=== PATIENT | male | born 1965 | race Caucasian/White ===

== ENCOUNTER → 2020-05-03 09:31 | Outpatient (BNVA) | payer BC, SELFPAY | PROVIDERS: Family Provider Family Medicine; PCP Family Medicine; Visit Provider Urology | DX: N40.0 Benign prostatic hyperplasia without lower urinary tract symptoms (principal); N52.1 Erectile dysfunction due to diseases classified elsewhere | CPT/HCPCS: 81001 ==

== ENCOUNTER → 2020-08-23 15:37 | Outpatient (BNVA) | payer BC, SELFPAY | PROVIDERS: Family Provider Family Medicine; PCP Family Medicine; Visit Provider Orthopaedic Surgery | DX: M17.11 Unilateral primary osteoarthritis, right knee (principal); M25.561 Pain in right knee | CPT/HCPCS: 73560; 73565 ==

== ENCOUNTER → 2020-10-04 09:35 | Outpatient (BNVA) | payer SELFPAY | PROVIDERS: Family Provider Family Medicine; PCP Family Medicine; Visit Provider Urology | DX: R79.89 Other specified abnormal findings of blood chemistry (principal); N52.1 Erectile dysfunction due to diseases classified elsewhere | CPT/HCPCS: 81003 ==

== ENCOUNTER → 2020-12-13 09:27 | Outpatient (BNVA) | payer OTHER, SELFPAY | PROVIDERS: Family Provider Family Medicine; PCP Family Medicine; Visit Provider Urology | DX: N52.1 Erectile dysfunction due to diseases classified elsewhere (principal) | CPT/HCPCS: 81003 ==

== ENCOUNTER 2021-08-31 22:19 | Emergency (ER) | payer OTHER, SELFPAY ==
[2021-08-31 22:29] VITALS: BP 164/73; PULSE 119; RESP 96; TEMP 38.6; O2SAT 96; BMI 53.1
--- NOTE | 2021-08-31 22:38 | ECG_ITS ---
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 Measurements Intervals [place] Rate: 110 P: 47 NE: 207 QRS: 34 QRSD: 97 T: 14 QT: 321 QTc: 435 Interpretive Statements SINUS TACHYCARDIA LOW QRS VOLTAGE IN PRECORDIAL LEADS [QRS DEFLECTION < 1.0 mV IN CHEST LEADS] NONSPECIFIC T-WAVE ABNORMALITY No previous ECG available for comparison Electronically Signed On 09-01-2021 10:51:06 BUSINESS QUALITY ASSURANCE ANALYST by Bob Brewster M.D. [id number]
--- NOTE | 2021-08-31 22:38 | XRR_ITS ---
PROCEDURE INFORMATION: Exam: XR Chest Exam date and time: 08/31/2021 10:38 PM Age: 55 years old Clinical indication: Shortness of breath; Additional info: SOB TECHNIQUE: Imaging protocol: XR of the chest. Views: 1 view. COMPARISON: [place] [id number] 03/25/2017 12:02 PM FINDINGS: Lungs: Unremarkable. No consolidation. Pleural spaces: Unremarkable. No pleural effusion. No pneumothorax. Heart/Mediastinum: Unremarkable. No cardiomegaly. Bones/joints: Unremarkable. XR/XR chest 1V portable [id number] IMPRESSION: Unremarkable.
[2021-08-31] MEDS: ibuprofen 800 mg tablet PO (23:26)
[2021-08-31 23:27] LABS: Basophils # 0.1 10^3/uL (0.0-0.1); Basophils % 0.4 %; Hematocrit 45.1 % (42.0-52.0); Hemoglobin 15.5 g/dL (11.7-16.6); Lymphocytes # 0.5 10^3/uL (0.8-4.8); Lymphocytes % 3.1 %; Mean Corpuscular HGB Conc 34.4 g/dL (30.0-36.0); Mean Corpuscular Hemoglobin 30.3 pg (28.0-34.0); Mean Corpuscular Volume 88.3 fl (80-94); Mean Platelet Volume 9.4 fL (7.4-10.4); Monocytes # 1.1 10^3/uL (0.2-0.9); Monocytes % 6.9 %; Neutrophils # 14.16 10^3/uL (1.8-7.7); Neutrophils % 88.7 %; Nucleated Red Blood Cells % 0 %; Platelet Count 270 10^3/cmm (130-400); Red Blood Count 5.11 10^6/uL (4.1-5.3); Red Cell Distribution Width 13.5 % (12.1-15.1)
[2021-08-31 23:38] VITALS: BP 136/92; PULSE 88; RESP 20; O2SAT 96
[2021-08-31 23:43] LABS: ABG PCO2 29.6 mmHg (35-45); ABG PH Result 7.46 (7.35-7.45); Arterial Blood Gas Hematocrit 46.8 % (42-52); Base Excess ABG -1.6 mmol/L (-2.0-2.0); Blood Gas Allen Test Pos; Blood Gas Sample Site Radial, right; Blood Gas Sample Type Arterial; Oxygen Device ROOM AIR
[2021-08-31] MEDS: sodium chloride 0.9% 1,000 ML 999 ML IV (23:45)
[2021-08-31 23:50] LABS: Influenza A by IFA Negative (Negative); Influenza B by IFA Negative (Negative); SARS Covid-2 Antigen Negative (Negative)
[2021-08-31 23:54] LABS: Lactic Sepsis W/Reflex 1.4 mmol/L (0.5-2.2)
--- NOTE | 2021-08-31 23:57 | CTR_ITS ---
PROCEDURE INFORMATION: Exam: CT Abdomen And Pelvis With Contrast Exam date and time: 08/31/2021 11:57 PM Age: 55 years old Clinical indication: Pain; Other: Back; Additional info: Abd pain TECHNIQUE: Imaging protocol: Computed tomography of the abdomen and pelvis with contrast. Radiation optimization: All CT scans at this facility use at least one of these dose optimization techniques: automated exposure control; mA and/or kV adjustment per patient size (includes targeted exams where dose is matched to clinical indication); or iterative reconstruction. Contrast material: OMNI 300; Contrast volume: 95 ml; Contrast route: INTRAVENOUS (IV); COMPARISON: CR (CHEST, ) 08/31/2021 10:46 PM RADIATION DOSE METRICS: Total DLP (mGy-cm): 1965.69 FINDINGS: Liver: Normal. No mass. Gallbladder and bile ducts: Normal. No calcified stones. No ductal dilation. Pancreas: Normal. No ductal dilation. Spleen: Normal. No splenomegaly. Adrenal glands: Normal. No mass. Kidneys and ureters: Rounded exophytic lesion solid in appearance extends posterior from the right kidney posterior upper pole region with dimensions of about 2.8 cm x 2.6 cm on transaxial series 2, image 40. Negative for hydronephrosis. No renal stones. No acute perinephric inflammation. Stomach and bowel: Unremarkable. No obstruction. No mucosal thickening. Appendix: Normal appendix. Intraperitoneal space: Unremarkable. No free air. No significant fluid collection. Vasculature: Unremarkable. No abdominal aortic aneurysm. Lymph nodes: Unremarkable. No enlarged lymph nodes. Urinary bladder: Unremarkable as visualized. Reproductive: Mild severity prostatomegaly. Bones/joints: Unremarkable. No acute fracture. Soft tissues: Unremarkable. CT/CT abdomen pelvis w con* [id number] IMPRESSION: 1. Suspicious solid right renal mass concerning for possible renal cell carcinoma. Further investigation is warranted with multiphasic contrast enhanced renal MRI protocol. Urology consultation is recommended. 2. Negative for acute abdominopelvic abnormality. 3. Negative for abdominopelvic metastatic disease. COMMENTS: Consistent with the [place] [employer]'s Incidental Findings Committee white paper (J Am Selam Radiol 2018): Any incidental renal lesion less than 1 cm or classified as too small to characterize, or any incidental cystic renal lesion characterized as simple-appearing, is likely benign. No follow-up imaging is recommended for these lesions per consensus recommendations based on imaging criteria.
[2021-09-01 00:03] LABS: Alanine Aminotransferase 36 U/L (0-41); Albumin Level 4.5 g/dL (3.5-5.2); Alkaline Phosphatase 101 IU/L (40-130); Anion Gap 18.8 (5-19); Aspartate Amino Transferase 24 U/L (0-40); Blood Urea Nitrogen 19 mg/dL (6-20); C Reactive Protein 42.8 mg/L (0.0-4.9); Calcium 9.3 mg/dL (8.5-10.5); Carbon Dioxide 18 mmol/L (22-29); Chloride 102 mmol/L (98-107); Globulin 2.7 g/dL (1.3-4.6); Glomerular Filtration Rate 99.6 mL/min (90-130); Glucose 141 mg/dL (65-115); NT Pro B Type Natriuretic Pept 70 pg/mL (0-125); Osmolality Calculated 285 mOsm/kg (285-295); Potassium 3.8 mmol/L (3.5-5.1); Sodium 135 mmol/L (136-145); Total Bilirubin 0.7 mg/dL (0.15-1.2); Total Protein 7.2 g/dL (6.6-8.7)
[2021-09-01] MEDS: iohexol 300 mg/mL 100 mL Btl IV (00:09)
--- NOTE | 2021-09-01 01:04 | W.ED.FEVER ---
HPI - Fever General: Chief Complaint: Fever Stated Complaint: FEVER, SOB Time Seen by Provider: 08/31/21 22:36 Source: patient and EMS Mode of arrival: EMS Limitations: no limitations History of Present Illness: HPI Narrative: 55-year-old male states that he has been having fever some flank pain slight cough body aches over the last 2 days states she had a temperature up to 103 tonight took Tylenol before arrival. Denies any headache denies any vomiting or diarrhea denies any weakness. Denies any severe dyspnea he is not hypoxic. Denies any recent illnesses or known sick contacts. He has had no vomiting or diarrhea denies any worsening improving factors. Associated symptoms: Reports abdominal pain, flank pain and chills; Deny chest pain or headache(s) Review of Systems Const: Reports: fever(s), chills and body aches Eyes: Denies: blurry vision or eye discomfort ENMT: Denies: throat pain or dental pain Card: Denies: chest pain Resp: Reports: dyspnea GI: Reports: abdominal pain : Reports: flank pain Musc: Denies: neck pain or back pain Skin/Breast: Denies: rash Neuro: Denies: headache(s) Psych: Denies: depression Afshin/Lymph: Denies: easy bruising All/Imm: Denies: urticaria PFSH ED PFSH: Medical History (Updated 09/01/21 @ 01:24 by Marian Aguilar MD) Erectile dysfunction GERD (gastroesophageal reflux disease) Hypertension Surgical History H/O arthroscopic knee surgery Hx of tonsillectomy Family History Father , AT AGE 84 Hypertension Lung disease Mother Lung disease Social History Smoking and tobacco status: former smoker Alcohol intake: never Adopted: No Caregiver/support person: No Lives independently: Yes Marital status: Current occupational status: employed History of recent travel: No Physical Exam Const: COMMON NORMALS: no acute distress, patient oriented x3 and healthy appearing HENMT: COMMON NORMALS: normocephalic and atraumatic HEAD & SCALP: normocephalic and atraumatic Eye: COMMON NORMALS: Equal, round and reactive pupils present and EOMs intact bilaterally PUPIL: Yes Equal, round and reactive pupils present Neck/C-Spine: COMMON NORMALS: full ROM and supple Chest: COMMONS NORMALS: normal inspection of the chest and normal palpation of entire chest wall Resp: COMMON NORMALS: normal respiratory effort, No retractions, No use of accessory muscles and clear to auscultation bilaterally AUSCULTATION: clear to auscultation bilaterally Cardio: COMMON NORMALS: regular rhythm and No murmurs present (Cardio) RATE: tachycardic RHYTHM: regular rhythm GI: COMMON NORMALS: Normal to inspection, nondistended, normoactive bowel sounds present, Soft to palpation and no masses PALPATION: Yes Soft to palpation and Yes Tenderness to palpation present (GI) Details: RLQ Extremity: COMMON NORMALS: normal to inspection and full ROM Neuro: COMMON NORMALS: patient oriented x3, moves all extremities and no focal motor deficits Psych: COMMON NORMALS: mental status grossly normal, Normal thought process present and cooperative THOUGHT PROCESS: Normal thought process present Skin: COMMON NORMALS: no rashes or lesions noted and no wounds GENERAL SKIN EXAM: no rashes or lesions noted Course Vital Signs: Vital signs: Vital Signs Temperature 97.5 F L 09/01/21 02:16 Pulse Rate 89 09/01/21 02:16 Respiratory Rate 18 09/01/21 02:16 Blood Pressure 116/72 09/01/21 02:16 Pulse Oximetry 97 09/01/21 02:16 MDM - Fever MDM Narrative: Medical decision making narrative: Patient presents here with fever likely viral syndrome patient's has no source of infection does have an elevated white count. I talked him at length and told him that he met sepsis criteria and I recommended admission. He states that he is not in a state hospital at all but he would like to go home he feels much better now that his fevers resolved. I again informed him that feel that he warrants admission with IV antibiotics to follow his blood culture but he refused we will place him on Augmentin he is to follow-up his PCP in 2 to 4 days return if worsening he understands and agrees to plan. Lab Data: Labs: Lab Results 08/31/21 08/31/21 08/31/21 23:10 23:10 23:10 WBC 16.0 10^3/uL H 10 ^3/uL (4.0-10.0) RBC 5.11 10^6/uL 10^6 /uL (4.1-5.3) Hgb 15.5 g/dL g/dL (11.7-16.6) Hct 45.1 % % (42.0-52.0) MCV 88.3 fl fl (80-94) MCH 30.3 pg pg (28.0-34.0) MCHC 34.4 g/dL g/dL (30.0-36.0) RDW 13.5 % % (12.1-15.1) Plt Count 270 10^3/cmm 10^3 /cmm (130-400) MPV 9.4 fL fL (7.4-10.4) Neut % (Auto) 88.7 % % Lymph % (Auto) 3.1 % % Winn % (Auto) 6.9 % % Eos % (Auto) 0.0 % % Baso % (Auto) 0.4 % % Neut # (Auto) 14.16 10^3/uL H 1 0^3/uL (1.8-7.7) Lymph # (Auto) 0.5 10^3/uL L 10^ 3/uL (0.8-4.8) Winn # (Auto) 1.1 10^3/uL H 10^ 3/uL (0.2-0.9) Eos # (Auto) 0.0 10^3/uL 10^3/ uL (0.0-0.8) Baso # (Auto) 0.1 10^3/uL 10^3/ uL (0.0-0.1) Nucleated RBC % (a uto) 0 % % Nucleated RBCs # 0.0 /100WBC /100W BC Specimen Type Sample Site ABG pH ABG pCO2 ABG pO2 ABG HCO3 ABG Base Excess Priyank Test Hematocrit O2 Delivery Device FiO2 Shredding Floor Equipment Operator ID Sodium 135 mmol/L L mmol /L (136-145) Potassium 3.8 mmol/L mmol/L (3.5-5.1) Chloride 102 mmol/L mmol/L (98-107) Carbon Dioxide 18 mmol/L L mmol/ L (22-29) Anion Gap 18.8 (5-19) BUN 19 mg/dL mg/dL (6-20) Creatinine 0.8 mg/dL mg/dL (0.7-1.2) GFR Calculation 99.6 mL/min mL/mi n (90-130) Glucose 141 mg/dL H mg/dL (65-115) Calculated Osmolal ity 285 mOsm/kg mOsm/ kg (285-295) Lactic Acid 1.4 mmol/L mmol/L (0.5-2.2) Calcium 9.3 mg/dL mg/dL (8.5-10.5) Total Bilirubin 0.7 mg/dL mg/dL (0.15-1.2) AST 24 U/L U/L (0-40) ALT 36 U/L U/L (0-41) Alkaline Phosphata se 101 IU/L IU/L (40-130) C-Reactive Protein 42.8 mg/L H mg/L (0.0-4.9) NT-Pro-B Natriuret Pep 70 pg/mL pg/mL (0-125) Total Protein 7.2 g/dL g/dL (6.6-8.7) Albumin 4.5 g/dL g/dL (3.5-5.2) Globulin 2.7 g/dL g/dL (1.3-4.6) Urine Color Urine Appearance Urine pH Ur Specific Gravit y Urine Protein Urine Glucose (UA) Urine Ketones Urine Blood Urine Nitrate Urine Bilirubin Urine Urobilinogen Ur Leukocyte Margie ase Urine RBC Urine WBC Ur Squamous Epith Cells Amorphous Sediment Urine Bacteria Influenza Type A A g Influenza Type B A g SARS-CoV-2 Ag (Rap id) 08/31/21 08/31/21 08/31/21 23:10 23:10 23:32 WBC RBC Hgb Hct MCV MCH MCHC RDW Plt Count MPV Neut % (Auto) Lymph % (Auto) Winn % (Auto) Eos % (Auto) Baso % (Auto) Neut # (Auto) Lymph # (Auto) Winn # (Auto) Eos # (Auto) Baso # (Auto) Nucleated RBC % (a uto) Nucleated RBCs # Specimen Type Arterial Sample Site Radial, right ABG pH 7.46 H (7.35-7.45) ABG pCO2 29.6 mmHg L mmHg (35-45) ABG pO2 72.0 mmHg L mmHg (80.0-100.0) ABG HCO3 21.0 mmol/L L mmo l/L (22-26) ABG Base Excess -1.6 mmol/L mmol/ L (-2.0-2.0) Priyank Test Pos Hematocrit 46.8 % % (42-52) O2 Delivery Device Room air FiO2 21.0 % % Shredding Floor Equipment Operator ID [email or web address] Sodium Potassium Chloride Carbon Dioxide Anion Gap BUN Creatinine GFR Calculation Glucose Calculated Osmolal ity Lactic Acid Calcium Total Bilirubin AST ALT Alkaline Phosphata se C-Reactive Protein NT-Pro-B Natriuret Pep Total Protein Albumin Globulin Urine Color Urine Appearance Urine pH Ur Specific Gravit y Urine Protein Urine Glucose (UA) Urine Ketones Urine Blood Urine Nitrate Urine Bilirubin Urine Urobilinogen Ur Leukocyte Margie ase Urine RBC Urine WBC Ur Squamous Epith Cells Amorphous Sediment Urine Bacteria Influenza Type A A g Negative (Negative) Influenza Type B A g Negative (Negative) SARS-CoV-2 Ag (Rap id) Negative (Negative) 09/01/21 00:59 WBC RBC Hgb Hct MCV MCH MCHC RDW Plt Count MPV Neut % (Auto) Lymph % (Auto) Winn % (Auto) Eos % (Auto) Baso % (Auto) Neut # (Auto) Lymph # (Auto) Winn # (Auto) Eos # (Auto) Baso # (Auto) Nucleated RBC % (a uto) Nucleated RBCs # Specimen Type Sample Site ABG pH ABG pCO2 ABG pO2 ABG HCO3 ABG Base Excess Priyank Test Hematocrit O2 Delivery Device FiO2 Shredding Floor Equipment Operator ID Sodium Potassium Chloride Carbon Dioxide Anion Gap BUN Creatinine GFR Calculation Glucose Calculated Osmolal ity Lactic Acid Calcium Total Bilirubin AST ALT Alkaline Phosphata se C-Reactive Protein NT-Pro-B Natriuret Pep Total Protein Albumin Globulin Urine Color Milly (Yellow) Urine Appearance Clear (CLEAR) Urine pH 5 (5-7) Ur Specific Gravit y 1.005 (1.005-1.030) Urine Protein Trace (Negative) Urine Glucose (UA) Norm (Normal) Urine Ketones Negative (Negative) Urine Blood Neg (Negative) Urine Nitrate Negative (Negative) Urine Bilirubin 1+ H (Negative) Urine Urobilinogen 8 mg/dL H mg/dL (Negative) Ur Leukocyte Margie ase Negative (Negative) Urine RBC Rare /hpf /hpf (0-2) Urine WBC Rare /hpf /hpf (0-5) Ur Squamous Epith Cells 0-4 /hpf H /hpf (0-5) Amorphous Sediment Not Reportable Urine Bacteria None /hpf /hpf (NONE) Influenza Type A A g Influenza Type B A g SARS-CoV-2 Ag (Rap id) Imaging Data^: CXR: Attestation: I personally reviewed and interpreted this imaging study as follows: Radiologist's impression: [address] [place] [address] XRay Report Signed Patient: Bk Almaraz Unit #: [id number] : 1965 Age/Sex: 55 / M ADM Date: 08/31/21 Loc: ER Room/Bed: Attending Dr: Ordering Provider/Ordering MD: Marian Aguilar MD Date of Service: 08/31/21 Procedure(s): XR chest 1V portable [id number] Accession Number(s): [id number] Report Number: [id number] PROCEDURE INFORMATION: Exam: XR Chest Exam date and time: 08/31/2021 10:38 PM Age: 55 years old Clinical indication: Shortness of breath; Additional info: SOB TECHNIQUE: Imaging protocol: XR of the chest. Views: 1 view. COMPARISON: [place] [id number] 03/25/2017 12:02 PM FINDINGS: Lungs: Unremarkable. No consolidation. Pleural spaces: Unremarkable. No pleural effusion. No pneumothorax. Heart/Mediastinum: Unremarkable. No cardiomegaly. Bones/joints: Unremarkable. XR/XR chest 1V portable [id number] IMPRESSION: Unremarkable. Dictated By: Chuck Munroe MD Signed By: Chuck Munroe MD Signed Date/Time: 08/31/212310 DD/ EKG Data^: EKG 1: Attestation: I personally reviewed and interpreted this EKG as follows: EKG interpretation date: 08/31/21 EKG interpretation time: 22:49 Interpretation: sinus tach hr [address] or t wave abnormalities qrs 97 qtc 386 Discharge Plan Discharge Patient Disposition: Home Clinical Impression: Acute viral syndrome, Fever Condition: Stable Prescriptions: New Augmentin 875-125 mg tablet 1 tab PO BID Qty: 14 RF: 0 No Action terazosin 2 mg capsule ? mg PO QDAY RF: 0 montelukast [Singulair] 10 mg tablet 10 mg PO QDAY RF: 0 hydrochlorothiazide 25 mg tablet ? mg PO QAM PRNRF: 0 gabapentin 100 mg tablet 100 mg PO .PRN RF: 0 potassium chloride 20 mEq tablet extended release ? meq PO .PRN RF: 0 albuterol sulfate [ProAir HFA] 90 mcg/actuation HFA aerosol inhaler 2 puff INHALATION Q6H PRNRF: 0 budesonide-formoterol [Symbicort] 160-4.5 mcg/actuation HFA aerosol inhaler 2 puff INHALATION BID RF: 0 lisinopril 10 mg tablet 10 mg PO BID RF: 0 meloxicam 15 mg tablet 15 mg PO DAILY RF: 0 lansoprazole 15 mg capsule,delayed release(DR/EC) 30 mg PO DAILY RF: 0 sildenafil 100 mg tablet 100 mg PO DAILY PRN (Reason: sexual activity) Qty: 20 RF: 12 Discharge Orders: Discharge ED (Routine); Ordered 09/01/21 Ordered By: Marian Aguilar Referrals: Deon Abebe MD [Primary Care Provider] - 1-3 days Discharge Diet: Advance as tolerated Discharge Activity: Resume usual activity Patient Instructions: Fever in Adults (ED) Coding Level of Care Code ED 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
[2021-09-01 01:16] VITALS: TEMP 36.4
[2021-09-01 01:25] LABS: Urine Appearance Clear (CLEAR); Urine Color Amber (Yellow)
[2021-09-01 01:26] LABS: Add Urine Culture? No; Add Urine Microscopic? YES; Bilirubin Urine 1+ (Negative); Blood Urine Neg (Negative); Glucose Urine UA Norm (Normal); Ketones Urine Negative (Negative); Leukocyte Esterase Urine Negative (Negative); Nitrate Urine Negative (Negative); Protein Urine Trace (Negative); RBC Urine RARE /hpf (0-2); Specific Gravity, Urine 1.005 (1.005-1.030); Squamous Epithelial Cell Urine 0-4 /hpf (0-5); Urobilinogen Urine 8 mg/dL (Negative); WBC Urine RARE /hpf (0-5); pH Urine 5 (5-7)
[2021-09-01 02:16] VITALS: BP 116/72; PULSE 89; RESP 18; TEMP 36.4; O2SAT 97
--- NOTE | 2021-09-01 13:30 | PC.NURSE ---
Dr Boykin notified of critical culture result, order received to await final culture results at this time.
== END 2021-09-01 02:18 | disposition home or self-care (01) ==
PROVIDERS: Emergency Provider Emergency Medicine; Family Provider Family Medicine; PCP Family Medicine
DX: B34.9 Viral infection, unspecified (principal); I10 Essential (primary) hypertension; Z87.891 Personal history of nicotine dependence
CPT/HCPCS: 71045; 74177; 80053; 81001; 82803; 83605; 83880; 85025; 86140; 87040; 87077; 87186; 87205; 87426; 87804; 93005; 96360; 99284; J7030; Q9967

== ENCOUNTER 2021-09-02 16:19 | Inpatient (IN) | payer OTHER, SELFPAY ==
[2021-09-02 16:39] VITALS: BP 155/83; PULSE 86; RESP 16; TEMP 37.2; O2SAT 99
--- NOTE | 2021-09-02 16:41 | USR_ITS ---
PROCEDURE INFORMATION: Exam: US Duplex Right Lower Extremity Veins, Limited Exam date and time: 09/02/2021 4:41 PM Age: 55 years old Clinical indication: Pain; Swelling (edema) of limb and other: Redness; Lower extremity, right; Leg, upper and leg, lower; Additional info: Redness/swelling/pain TECHNIQUE: Imaging protocol: Real-time Duplex ultrasound of the Right Lower Extremity with 2-D pinto scale, color Doppler flow and spectral waveform analysis with image documentation. Limited exam was focused on the right lower extremity veins. COMPARISON: CT abdomen pelvis w con* [id number] 09/01/2021 12:08 AM FINDINGS: Right deep veins: Unremarkable. The common femoral, femoral, proximal profunda femoral and popliteal veins are patent without thrombus. Normal Doppler waveforms. Normal compressibility and/or augmentation response. Right superficial veins: Unremarkable. Saphenofemoral junction is patent without thrombus. Soft tissues: There is a large circumscribed debris-filled ovoid hypoechoic fluid collection in the right popliteal fossa which spans 7.7 cm longitudinal by 3.4 cm AP x 4.6 cm transverse with no internal vascularity. Low lying dependently layering echogenic debris throughout the lesion noted. US/[place] [id number] IMPRESSION: 1. Negative for right lower extremity deep venous system thrombosis. 2. Large, debris-filled right popliteal fossa cyst.
[2021-09-02 21:55] LABS: Basophils # 0.1 10^3/uL (0.0-0.1); Basophils % 0.5 %; Eosinophils # 0.1 10^3/uL (0.0-0.8); Eosinophils % 0.5 %; Hematocrit 41.6 % (42.0-52.0); Hemoglobin 14.2 g/dL (11.7-16.6); Lymphocytes # 1.6 10^3/uL (0.8-4.8); Lymphocytes % 12.4 %; Mean Corpuscular HGB Conc 34.1 g/dL (30.0-36.0); Mean Corpuscular Hemoglobin 30.2 pg (28.0-34.0); Mean Corpuscular Volume 88.5 fl (80-94); Mean Platelet Volume 9.7 fL (7.4-10.4); Monocytes # 1.5 10^3/uL (0.2-0.9); Monocytes % 11.5 %; Neutrophils # 9.54 10^3/uL (1.8-7.7); Neutrophils % 74.3 %; Nucleated Red Blood Cells % 0 %; Platelet Count 250 10^3/cmm (130-400); Red Cell Distribution Width 13.9 % (12.1-15.1); White Blood Count 12.8 10^3/uL (4.0-10.0)
--- NOTE | 2021-09-02 22:10 | W.ED.EXTPRO ---
HPI - Extremity Problem General: Chief complaint: Extremity Problem,Nontraumatic Stated complaint: R LEG SWELLING/REDNESS; GROIN PAIN; SENT BY CLINIC Time Seen by Provider: 09/02/21 21:20 Source: patient Mode of arrival: ambulatory Limitations: no limitations History of Present Illness: HPI Narrative: 55-year-old male was actually seen here 3 days ago for fever with no known origin he started on doxycycline he states that today started having redness to his right lower leg going up his calf he states that he is started on Augmentin and they were concerned about a possible DVT so sent him here for an ultrasound he states that his fevers have improved he had no vomiting no diarrhea denies any back pain denies any worsening improving factors. Associated symptoms: Reports fever(s); Deny chest pain Review of Systems Const: Reports: fever(s), chills and body aches Eyes: Denies: blurry vision or eye discomfort ENMT: Denies: throat pain or dental pain Card: Denies: chest pain Resp: Denies: dyspnea GI: Denies: abdominal pain, nausea, vomiting or diarrhea : Denies: dysuria Musc: Denies: neck pain or back pain Skin/Breast: Reports: erythema Neuro: Denies: headache(s) Psych: Denies: depression Afshin/Lymph: Denies: easy bruising All/Imm: Denies: urticaria PFSH ED PFSH: Medical History Erectile dysfunction GERD (gastroesophageal reflux disease) Hypertension Renal mass, right Surgical History H/O arthroscopic knee surgery Hx of tonsillectomy Family History Father , AT AGE 84 Hypertension Lung disease Mother Lung disease Social History Smoking and tobacco status: never smoked Alcohol intake: never Adopted: No Caregiver/support person: No Lives independently: Yes Marital status: Current occupational status: employed History of recent travel: No Physical Exam Const: COMMON NORMALS: no acute distress, patient oriented x3 and healthy appearing HENMT: COMMON NORMALS: normocephalic and atraumatic HEAD & SCALP: normocephalic and atraumatic Eye: COMMON NORMALS: Equal, round and reactive pupils present and EOMs intact bilaterally PUPIL: Yes Equal, round and reactive pupils present Neck/C-Spine: COMMON NORMALS: full ROM and supple Chest: COMMONS NORMALS: normal inspection of the chest and normal palpation of entire chest wall Resp: COMMON NORMALS: normal respiratory effort, No retractions, No use of accessory muscles and clear to auscultation bilaterally AUSCULTATION: clear to auscultation bilaterally Cardio: COMMON NORMALS: regular rate, regular rhythm and No murmurs present (Cardio) RATE: regular rate RHYTHM: regular rhythm GI: COMMON NORMALS: Normal to inspection, nondistended, normoactive bowel sounds present, Soft to palpation, non-tender and no masses PALPATION: Yes Soft to palpation Extremity: COMMON NORMALS: normal to inspection and full ROM NARRATIVE EXTREMITY EXAM: Erythema to right lower leg extending past his knee very warm to touch Neuro: COMMON NORMALS: patient oriented x3, moves all extremities and no focal motor deficits Psych: COMMON NORMALS: mental status grossly normal, Normal thought process present and cooperative THOUGHT PROCESS: Normal thought process present Skin: COMMON NORMALS: no rashes or lesions noted and no wounds GENERAL SKIN EXAM: no rashes or lesions noted Course Vital Signs: Vital signs: Vital Signs Temperature 99.0 F 09/02/21 16:39 Pulse Rate 82 09/02/21 22:45 Respiratory Rate 16 09/02/21 22:45 Blood Pressure 155/83 09/02/21 16:39 Pulse Oximetry 97 09/02/21 22:45 MDM - Extremity (Nontraumatic) MDM Narrative: Medical decision making narrative: Patient presents to here with cellulitis to his right leg he has been on outpatient antibiotics and the cellulitis is worsening so he has failed outpatient biotics. Spoke to the hospitalist will admit at this time for IV antibiotics patient is also not very healthy morbidly obese with multiple comorbidities. Lab Data: Labs: Lab Results 09/02/21 09/02/21 21:50 21:50 WBC 12.8 10^3/uL H 10 ^3/uL (4.0-10.0) RBC 4.70 10^6/uL 10^6 /uL (4.1-5.3) Hgb 14.2 g/dL g/dL (11.7-16.6) Hct 41.6 % L % (42.0-52.0) MCV 88.5 fl fl (80-94) MCH 30.2 pg pg (28.0-34.0) MCHC 34.1 g/dL g/dL (30.0-36.0) RDW 13.9 % % (12.1-15.1) Plt Count 250 10^3/cmm 10^3 /cmm (130-400) MPV 9.7 fL fL (7.4-10.4) Neut % (Auto) 74.3 % % Lymph % (Auto) 12.4 % % [place] % (Auto) 11.5 % % Eos % (Auto) 0.5 % % Baso % (Auto) 0.5 % % Neut # (Auto) 9.54 10^3/uL H 10 ^3/uL (1.8-7.7) Lymph # (Auto) 1.6 10^3/uL 10^3/ uL (0.8-4.8) [place] # (Auto) 1.5 10^3/uL H 10^ 3/uL (0.2-0.9) Eos # (Auto) 0.1 10^3/uL 10^3/ uL (0.0-0.8) Baso # (Auto) 0.1 10^3/uL 10^3/ uL (0.0-0.1) Nucleated RBC % (a uto) 0 % % Nucleated RBCs # 0.0 /100WBC /100W BC Sodium 132 mmol/L L mmol /L (136-145) Potassium 3.9 mmol/L mmol/L (3.5-5.1) Chloride 101 mmol/L mmol/L (98-107) Carbon Dioxide 19 mmol/L L mmol/ L (22-29) Anion Gap 15.9 (5-19) BUN 14 mg/dL mg/dL (6-20) Creatinine 0.8 mg/dL mg/dL (0.7-1.2) GFR Calculation 99.6 mL/min mL/mi n (90-130) Glucose 140 mg/dL H mg/dL (65-115) Calculated Osmolal ity 277 mOsm/kg L mOs m/kg (285-295) Calcium 8.7 mg/dL mg/dL (8.5-10.5) Total Bilirubin 0.6 mg/dL mg/dL (0.15-1.2) AST 17 U/L U/L (0-40) ALT 29 U/L U/L (0-41) Alkaline Phosphata se 86 IU/L IU/L (40-130) Total Protein 6.8 g/dL g/dL (6.6-8.7) Albumin 3.8 g/dL g/dL (3.5-5.2) Globulin 3.0 g/dL g/dL (1.3-4.6) Discharge Plan Discharge Patient Disposition: Admitted As Inpatient Clinical Impression: Cellulitis Qualifiers: Site of cellulitis: extremity Site of cellulitis of extremity: lower extremity Laterality: right Qualified Code(s): L03.115 - Cellulitis of right lower limb Condition: Stable Coding Level of Care Code 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
[2021-09-02 22:12] LABS: Alanine Aminotransferase 29 U/L (0-41); Albumin Level 3.8 g/dL (3.5-5.2); Alkaline Phosphatase 86 IU/L (40-130); Anion Gap 15.9 (5-19); Aspartate Amino Transferase 17 U/L (0-40); Blood Urea Nitrogen 14 mg/dL (6-20); Calcium 8.7 mg/dL (8.5-10.5); Carbon Dioxide 19 mmol/L (22-29); Chloride 101 mmol/L (98-107); Glomerular Filtration Rate 99.6 mL/min (90-130); Glucose 140 mg/dL (65-115); Osmolality Calculated 277 mOsm/kg (285-295); Potassium 3.9 mmol/L (3.5-5.1); Sodium 132 mmol/L (136-145); Total Bilirubin 0.6 mg/dL (0.15-1.2); Total Protein 6.8 g/dL (6.6-8.7)
[2021-09-02] MEDS: vancomycin 1,000 MG in sodium chloride 0.9% 250 ML 250 MG IV (22:44)
[2021-09-02 22:45] VITALS: PULSE 82; RESP 16; O2SAT 97
[2021-09-03] VITALS (10 sets, daily range): BP systolic 117–148; BP diastolic 63–84; PULSE 74–85; RESP 16–26; TEMP 36.4–36.8; O2SAT 94–100
[2021-09-03] MEDS: piperacillin-tazobactam 3.375 GM in sodium chloride 0.9% (plus) 50 ML IV ×3 (00:34→20:52)
--- NOTE | 2021-09-03 02:52 | XRR_ITS ---
PROCEDURE INFORMATION: Exam: XR Chest Exam date and time: 09/03/2021 2:52 AM Age: 55 years old Clinical indication: Fever and shortness of breath; Patient HX: SOB with recent fever. History of copd. TECHNIQUE: Imaging protocol: XR of the chest. Views: 1 view. Total images: 1 COMPARISON: CR (CHEST, ) 08/31/2021 10:46 PM FINDINGS: Lungs: Unremarkable. No consolidation. Pleural spaces: Unremarkable. No pleural effusion. No pneumothorax. Heart/Mediastinum: Unremarkable. No cardiomegaly. Bones/joints: Unremarkable. XR/XR chest 1V portable [id number] IMPRESSION: No acute findings.
--- NOTE | 2021-09-03 02:53 | PM.HP ---
Providers/Chief Complaint Admitting Physician: Cynthia Barboza MD Primary Care Provider: Deon Abebe MD Chief Complaint: R LEG SWELLING/REDNESS; GROIN PAIN; SENT BY CLINIC History of Present Illness Bk Almaraz is a 55 year old male with a past medical history of hypertension, presented to the emergency room initially on August 31, 2021 complaining of right leg pain and fever up to 103 Fahrenheit at home. At the time was recommended admission, however patient declined and returned home. Return today after follow-up with his PCP where he was noted to have increasing right lower extremity swelling and erythema affecting the calf and right groin. Patient denies any past medical history of cellulitis. He has longstanding cartilage issues in his right knee. Denies any recent trauma. No history of joint replacement. No history of diabetes mellitus. He was discharged on 1230 with p.o. doxycycline which did not appear to control his symptoms. Rapid antigen and influenza antigen were negative on 09/01. Labs today notable for leukocytosis. Lower extremity venous Doppler is negative for DVT He is unvaccinated for COVID-19. Review of Systems General: Reports: 10 or more systems reviewed and unremarkable except in HPI and below Const: Denies: fever(s), chills or body aches Eyes: Denies: change in vision, blurry vision or photophobia ENMT: Reports: hoarseness; Denies: throat pain, enlarged tonsils, odynophagia or nasal congestion Card: Denies: chest pain, palpitations, irregular heart rhythm, edema, swelling of feet/ankles, lightheadedness, pre-syncope, dyspnea on exertion or orthopnea Resp: Denies: dyspnea, productive cough, non-productive cough, wheezing, stridor, pain on inspiration, change in phlegm color, hemoptysis or chest congestion GI: Denies: abdominal pain, nausea, vomiting, hematemesis, coffee ground emesis, dysphagia, heartburn, diarrhea, constipation, GI cramping, change in stool character, hematochezia or melena : Denies: flank pain, dysuria, urinary frequency, urinary urgency, urinary hesitancy or hematuria Musc: Denies: neck pain, back pain, extremity pain, joint swelling, joint warmth or deformity Neuro: Denies: headache(s), numbness in extremities, weakness in extremities, sensory changes, difficulty walking, frequent falls, dizziness, vertigo, behavioral changes, Slurred speech present or seizure-like activity Psych: Denies: anxiety, depression, suicidal ideation or homicidal ideation Endo: Denies: polyuria, polydipsia, tired all the time, cold intolerance or hot flashes Afshin/Lymph: Denies: easy bruising or easy bleeding Medications/Allergies Home Medications Medication Instructions Recorded Confirmed Last Taken Type montelukast 10 mg tablet 10 mg PO QDAY 09/27/19 09/02/21 Unknown History terazosin 2 mg capsule ? mg PO QDAY cap 09/27/19 09/02/21 Unknown History albuterol sulfate 90 mcg/actuation 2 puff INHALATION Q6H PRN 05/03/20 09/02/21 Unknown History aerosol inhaler budesonide-formoterol HFA 160 2 puff INHALATION BID 05/03/20 09/02/21 Unknown History mcg-4.5 mcg/actuation aerosol inhaler hydrochlorothiazide 25 mg tablet ? mg PO QAM PRN tab 05/03/20 09/02/21 Unknown History lansoprazole 15 mg capsule,delayed 30 mg PO DAILY cap 05/03/20 09/02/21 Unknown History release lisinopril 10 mg tablet 10 mg PO BID 05/03/20 09/02/21 Unknown History meloxicam 15 mg tablet 15 mg PO DAILY 05/03/20 09/02/21 Unknown History sildenafil 100 mg tablet 100 mg PO DAILY PRN #20 tab 05/04/20 09/02/21 Unknown Rx gabapentin 100 mg tablet 100 mg PO .PRN tab 10/04/20 09/02/21 Unknown History potassium chloride 20 mEq ? meq PO .PRN tab 10/04/20 09/02/21 Unknown History tablet,extended release doxycycline hyclate 100 mg tablet 100 mg PO BID 10 Days #20 tab 09/02/21 09/02/21 Unknown Rx Allergies Allergy/AdvReac Type Severity Reaction Status Date / Time No Known Allergies Allergy Verified 09/02/21 16:42 PFSH Acute PFSH: Medical History Erectile dysfunction GERD (gastroesophageal reflux disease) Hypertension Renal mass, right Surgical History H/O arthroscopic knee surgery Hx of tonsillectomy Family History Father , AT AGE 84 Hypertension Lung disease Mother Lung disease Social History Smoking and tobacco status: never smoked Alcohol intake: never Adopted: No Caregiver/support person: No Lives independently: Yes Marital status: Current occupational status: employed History of recent travel: No Vitals/I&O/Wt Last Vital Signs Temp 98.0 F 09/03/21 00:19 Pulse 85 09/03/21 00:19 Resp 24 H 09/03/21 00:19 BP 148/84 09/03/21 00:19 Pulse Ox 98 09/03/21 00:19 09/02/21 09/02/21 09/03/21 14:59 22:59 06:59 Intake Total 250 / 250 Balance 250 / 250 Weight last 48 hrs Weight 181.437 kg Physical Exam Narrative: EXAM NARRATIVE: General: No acute distress, AO x3 HEENT: PERRLA, pupils bilaterally equal and reactive, pallors not present Chest: Normal vesicular breath sounds, no added sounds, equal good air entry bilaterally CVS: S1-S2 regular, no murmurs, no tachycardia, no gallops, no rubs Abdomen: Soft, nontender, no organomegaly, bowel sounds present Neuro: No focal deficits, no facial deformity, AO x3, power 5/5 in all limbs Extremities: RLE cellulitis affecting the calf and right groin anteriorly Data : 09/02/21 21:50 09/02/21 21:50 A&P Assessment and plan (1) Cellulitis: Progressive right lower extremity cellulitis in spite of being on outpatient p.o. antibiotics. 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
[2021-09-03] MEDS: enoxaparin 40 mg/0.4 mL Syringe SUBCUT (04:08)
[2021-09-03] MEDS: pantoprazole DR 40 mg Tablet PO (08:13)
[2021-09-03] MEDS: lisinopril 10 mg Tablet PO ×2 (08:13→18:08)
[2021-09-03 13:44] LABS: Estmated Average Glucose 126
[2021-09-03 13:52] LABS: Erythrocyte Sedimentation Rate 33 mm/hr (0-10)
[2021-09-03 14:10] LABS: Hepatitis A Antibody IgM Non-Reactive (Nonreactive); Hepatitis B Core IgM Non-Reactive (Nonreactive); Hepatitis B Surface Antigen Non-Reactive (Nonreactive); Hepatitis C Virus Antibody Non-Reactive (Nonreactive)
--- NOTE | 2021-09-03 14:49 | PM.PN ---
Subjective Subjective: Interval history: Patient was seen this morning, no fevers, chills, nausea, no vomiting, he does not know how the cellulitis in the right lower extremity began, no cat bites, bug bites, no injuries, no scratches Vitals/I&O/Wt Last Vital Signs Temp 97.9 F 09/03/21 12:00 Pulse 77 09/03/21 12:00 Resp 18 09/03/21 12:00 BP 121/63 09/03/21 12:00 Pulse Ox 98 09/03/21 12:00 09/02/21 09/03/21 09/03/21 22:59 06:59 14:59 Intake Total 840 / 840 1270 / 1270 Output Total 1650 / 1650 Balance 840 / 840 -380 / -380 Weight last 48 hrs Weight 181.437 kg Physical Exam Const: COMMON NORMALS: no acute distress and patient oriented x3 Resp: COMMON NORMALS: normal respiratory effort, No retractions, No use of accessory muscles and clear to auscultation bilaterally AUSCULTATION: clear to auscultation bilaterally Cardio: COMMON NORMALS: regular rate, regular rhythm, S1 normal heart sound present and S2 normal heart sound present RATE: regular rate RHYTHM: regular rhythm HEART SOUNDS: S1 normal heart sound present and S2 normal heart sound present GI: COMMON NORMALS: Normal to inspection, nondistended, normoactive bowel sounds present and Soft to palpation PALPATION: Yes Soft to palpation Extremity: COMMON NORMALS: no pedal edema NARRATIVE EXTREMITY EXAM: Area of cellulitis marked, extending from right eye thigh down to lower ankle Neuro: COMMON NORMALS: patient oriented x3 Psych: COMMON NORMALS: mental status grossly normal Data : 09/02/21 21:50 09/02/21 21:50 Micro: Microbiology 09/03/21 08:41 Blood Culture - Preliminary Blood SPECIMEN COLLECTED 09/03/21 08:41 Blood Culture - Preliminary Blood SPECIMEN COLLECTED A&P Assessment and plan (1) Cellulitis: Progressive right lower extremity cellulitis in spite of being on outpatient p.o. antibiotics. No preceding trauma Will start patient empirically on IV piperacillin tazobactam and vancomycin Blood culture positive for group B strep screening Hba1c 6.0, hep C screen negative No open sores or ulcers LE duplex negative for DVT, has large debris-filled right popliteal fossa cyst Admit in view of failure of outpatient abx Status: Acute Qualifiers: Laterality: right Site of cellulitis: extremity Site of cellulitis of extremity: lower extremity Qualified Code(s): L03.115 - Cellulitis of right lower limb (2) Bacteremia due to group B Streptococcus: Status: Acute Attestations Medical Necessity Statement*: Patient requires hospitalization for cellulitis right lower extremity Coding Level of Care 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
[2021-09-04] MEDS: enoxaparin 40 mg/0.4 mL Syringe SUBCUT (03:33)
[2021-09-04 04:11] VITALS: BP 126/74; PULSE 72; RESP 16; TEMP 36.7; O2SAT 98
[2021-09-04] MEDS: piperacillin-tazobactam 3.375 GM in sodium chloride 0.9% (plus) 50 ML IV ×3 (05:00→21:54)
[2021-09-04 06:23] LABS: Basophils # 0.1 10^3/uL (0.0-0.1); Basophils % 0.7 %; Eosinophils # 0.1 10^3/uL (0.0-0.8); Eosinophils % 1.1 %; Hematocrit 40.4 % (42.0-52.0); Hemoglobin 13.4 g/dL (11.7-16.6); Lymphocytes % 20.3 %; Mean Corpuscular HGB Conc 33.2 g/dL (30.0-36.0); Mean Corpuscular Hemoglobin 30.3 pg (28.0-34.0); Mean Corpuscular Volume 91.4 fl (80-94); Mean Platelet Volume 9.3 fL (7.4-10.4); Monocytes # 1.4 10^3/uL (0.2-0.9); Monocytes % 14.7 %; Neutrophils # 5.89 10^3/uL (1.8-7.7); Neutrophils % 60.9 %; Nucleated Red Blood Cells % 0 %; Platelet Count 267 10^3/cmm (130-400); Red Blood Count 4.42 10^6/uL (4.1-5.3); White Blood Count 9.7 10^3/uL (4.0-10.0)
[2021-09-04 06:46] LABS: Alanine Aminotransferase 22 U/L (0-41); Albumin Level 3.4 g/dL (3.5-5.2); Alkaline Phosphatase 84 IU/L (40-130); Anion Gap 14.3 (5-19); Aspartate Amino Transferase 18 U/L (0-40); Blood Urea Nitrogen 11 mg/dL (6-20); Calcium 8.7 mg/dL (8.5-10.5); Carbon Dioxide 19 mmol/L (22-29); Chloride 107 mmol/L (98-107); Globulin 2.9 g/dL (1.3-4.6); Glomerular Filtration Rate 116.2 mL/min (90-130); Glucose 105 mg/dL (65-115); Osmolality Calculated 282 mOsm/kg (285-295); Potassium 4.3 mmol/L (3.5-5.1); Sodium 136 mmol/L (136-145); Total Bilirubin 0.5 mg/dL (0.15-1.2); Total Protein 6.3 g/dL (6.6-8.7)
[2021-09-04 07:49] VITALS: BP 149/78; PULSE 75; RESP 18; TEMP 37.2; O2SAT 99
[2021-09-04] MEDS: pantoprazole DR 40 mg Tablet PO (08:03)
[2021-09-04] MEDS: lisinopril 10 mg Tablet PO ×2 (08:03→17:45)
[2021-09-04 12:00] VITALS: BP 135/71; PULSE 71; RESP 16; TEMP 36.6; O2SAT 95
--- NOTE | 2021-09-04 14:41 | P.PN_ITS ---
Subjective Subjective: Interval history: Patient was seen and examined this morning, no acute events overnight, continues to remain afebrile. Medications: Medication Review Details: Generic Name Dose Route Start Last Admin Trade Name Cyn PRN Reason Stop Dose Admin Enoxaparin Sodium 40 mg 09/03/21 03:00 09/04/21 03:33 Enoxaparin 40 Mg /0.4 Ml Syringe SUBCUT 40 mg Q24H SHEYLA Administration Piperacillin Sod/T azobactam 50 mls @ 12.5 mls /hr 09/03/21 21:00 09/04/21 13:36 Sod 3.375 gm/ So dium Chloride IV 12.5 mls/hr Q8H SHEYLA Administration Protocol Vancomycin HCl 2,0 00 mg/ 500 mls @ 250 mls /hr 09/04/21 10:15 09/04/21 10:30 Sodium Chloride IV Not Given Q12H SHEYLA Lisinopril 10 mg 09/03/21 09:00 09/04/21 08:03 Lisinopril 10 Mg Tablet PO 10 mg BID SHEYLA Administration Pantoprazole Sodiu m 40 mg 09/03/21 09:00 09/04/21 08:[address] 40 Mg Tablet PO 40 mg DAILY SHEYLA Administration Vitals/I&O/Wt Last Vital Signs Temp 98 F 09/04/21 12:00 Pulse 71 09/04/21 12:00 Resp 16 09/04/21 12:00 BP 135/71 09/04/21 12:00 Pulse Ox 95 09/04/21 12:00 09/03/21 09/04/21 09/04/21 22:59 06:59 14:59 Intake Total 860 / 2610 290 / 2900 530 / 530 Output Total 600 / 2850 800 / 3650 450 / 450 Balance 260 / -240 -510 / -750 80 / 80 Weight last 48 hrs Weight 181.437 kg Physical Exam Const: COMMON NORMALS: patient oriented x3 HENMT: COMMON NORMALS: normocephalic and atraumatic HEAD & SCALP: normocephalic and atraumatic Eye: COMMON NORMALS: no scleral icterus Resp: COMMON NORMALS: clear to auscultation bilaterally AUSCULTATION: clear to auscultation bilaterally Cardio: COMMON NORMALS: regular rate, regular rhythm, S1 normal heart sound present, S2 normal heart sound present, No gallops present (Cardio), No murmurs present (Cardio), No rub (Cardio) and Peripheral pulses 2+ throughout RATE: regular rate RHYTHM: regular rhythm HEART SOUNDS: S1 normal heart sound present and S2 normal heart sound present PERIPHERAL PULSES: Peripheral pulses 2+ throughout GI: COMMON NORMALS: Normal to inspection, nondistended, normoactive bowel sounds present, Soft to palpation, non-tender, No hepatosplenomegaly present and no masses AUSCULTATION: Yes normoactive bowel sounds PALPATION: Yes Soft to palpation and Yes No hepatosplenomegaly present RECTAL EXAM: Yes deferred : COMMON NORMALS: Yes no CVA tenderness BLADDER/KIDNEY EXAM: Yes no CVA tenderness Back/Pelvis: COMMON NORMALS: no CVA tenderness Extremity: NARRATIVE EXTREMITY EXAM: Marked redness of rt lower extremity with severe Tenderness Neuro: COMMON NORMALS: patient oriented x3 Data : 09/04/21 06:09 09/04/21 06:09 Micro: Microbiology 09/03/21 08:41 Blood Culture - Preliminary Blood NEGATIVE TO DATE 09/03/21 08:41 Blood Culture - Preliminary Blood NEGATIVE TO DATE A&P Assessment and plan (1) Cellulitis: Progressive right lower extremity cellulitis in spite of being on outpatient p.o. antibiotics. No preceding trauma Will start patient empirically on IV piperacillin tazobactam and vancomycin Blood culture positive for group B strep screening Hba1c 6.0, hep C screen negative No open sores or ulcers LE duplex negative for DVT, has large debris-filled right popliteal fossa cyst Admit in view of failure of outpatient abx Status: Acute Qualifiers: Laterality: right Site of cellulitis: extremity Site of cellulitis of extremity: lower extremity Qualified Code(s): L03.115 - Cellulitis of right lower limb (2) Bacteremia due to group B Streptococcus: Status: Acute Attestations Medical Necessity Statement*: Patient in hospital for management of lower extremity cellulitis, continued need for IV antibiotics. 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
[2021-09-04 16:00] VITALS: BP 120/58; PULSE 65; RESP 16; TEMP 36.6; O2SAT 99
--- NOTE | 2021-09-04 19:43 | PC.NURSE ---
Shift report received from Joann MARIO. Patient awake up in room. Denies pain. Redness/edema present RLE. IV patent. No needs voiced at this time..
[2021-09-04 20:00] VITALS: BP 134/71; PULSE 69; RESP 18; TEMP 37.1; O2SAT 98
[2021-09-04 21:27] LABS: Glucose Point of Care 132 mg/dL (70-110)
[2021-09-05] VITALS: BP 153/77; PULSE 76; RESP 18; TEMP 36.9; O2SAT 99
[2021-09-05] MEDS: enoxaparin 40 mg/0.4 mL Syringe SUBCUT (03:33)
[2021-09-05 04:00] VITALS: BP 156/76; PULSE 73; RESP 17; TEMP 36.8; O2SAT 98
[2021-09-05] MEDS: piperacillin-tazobactam 3.375 GM in sodium chloride 0.9% (plus) 50 ML IV (04:22)
[2021-09-05 06:05] LABS: Basophils # 0.1 10^3/uL (0.0-0.1); Basophils % 0.9 %; Eosinophils # 0.2 10^3/uL (0.0-0.8); Eosinophils % 1.7 %; Hematocrit 40.3 % (42.0-52.0); Hemoglobin 13.3 g/dL (11.7-16.6); Lymphocytes # 2.3 10^3/uL (0.8-4.8); Lymphocytes % 22.3 %; Mean Corpuscular Volume 90.8 fl (80-94); Mean Platelet Volume 9.4 fL (7.4-10.4); Monocytes # 1.4 10^3/uL (0.2-0.9); Monocytes % 13.6 %; Neutrophils # 5.81 10^3/uL (1.8-7.7); Neutrophils % 56.8 %; Nucleated Red Blood Cells % 0 %; Platelet Count 297 10^3/cmm (130-400); Red Blood Count 4.44 10^6/uL (4.1-5.3); White Blood Count 10.2 10^3/uL (4.0-10.0)
[2021-09-05 06:42] LABS: Anion Gap 16.1 (5-19); Blood Urea Nitrogen 9 mg/dL (6-20); Calcium 9.1 mg/dL (8.5-10.5); Carbon Dioxide 21 mmol/L (22-29); Chloride 106 mmol/L (98-107); Glomerular Filtration Rate 116.2 mL/min (90-130); Glucose 101 mg/dL (65-115); Osmolality Calculated 287 mOsm/kg (285-295); Potassium 4.1 mmol/L (3.5-5.1); Sodium 139 mmol/L (136-145)
[2021-09-05 06:45] LABS: Glucose Point of Care 101 mg/dL (70-110)
[2021-09-05 07:20] VITALS: BP 121/71; PULSE 73; RESP 18; TEMP 36.6; O2SAT 98
[2021-09-05] MEDS: pantoprazole DR 40 mg Tablet PO (08:34)
[2021-09-05] MEDS: lisinopril 10 mg Tablet PO (08:34)
[2021-09-05 12:00] VITALS: BP 162/77; PULSE 74; RESP 18; TEMP 36.6; O2SAT 93
--- NOTE | 2021-09-05 12:02 | P.DS_ITS ---
Discharge Providers Date of Admission: 09/02/21 22:59 Date of Discharge: September 05, 2021 Attending Provider at Admission: Cynthia Barboza MD Attending Provider at Discharge: Kike Harman MD Primary Care Provider: Deon Abebe MD Diagnoses at Discharge Discharge Diagnosis (1) Cellulitis: Qualifiers: Laterality: right Site of cellulitis: extremity Site of cellulitis of extremity: lower extremity Qualified Code(s): L03.115 - Cellulitis of right lower limb (2) Bacteremia due to group B Streptococcus: Reason for Visit Reason for Visit: R LEG SWELLING/REDNESS; GROIN PAIN; SENT BY CLINIC Hospital Course Hospital Course 55 year old male with a past medical history of hypertension, presented to the emergency room initially on August 31, 2021 complaining of right leg pain and fever up to 103 Fahrenheit at home. At the time was recommended admission, however patient declined and returned home. Return today after follow-up with his PCP where he was noted to have increasing right lower extremity swelling and erythema affecting the calf and right groin. Patient was admitted for management of right lower extremity cellulitis: He was kept on vancomycin and Zosyn during the hospital stay, blood culture grew: 09/05 : Strep, agalactiae, repeat blood culture was negative, Lower extremity cellulitis was improving on Zosyn, he was discharged on p.o. Augmentin as well as levofloxacin for additional 10 days. Lower extremity Doppler vein was negative for DVT. He has been advised to closely monitor the cellulitis and in case of any w orsening immediately return to the ER. Physical Exam Const: COMMON NORMALS: patient oriented x3 HENMT: COMMON NORMALS: normocephalic and atraumatic HEAD & SCALP: normocephalic and atraumatic Eye: COMMON NORMALS: no scleral icterus Resp: COMMON NORMALS: clear to auscultation bilaterally AUSCULTATION: clear to auscultation bilaterally Cardio: COMMON NORMALS: regular rate, regular rhythm, S1 normal heart sound present, S2 normal heart sound present, No gallops present (Cardio), No murmurs present (Cardio), No rub (Cardio) and Peripheral pulses 2+ throughout RATE: regular rate RHYTHM: regular rhythm HEART SOUNDS: S1 normal heart sound present and S2 normal heart sound present PERIPHERAL PULSES: Peripheral pul ses 2+ throughout GI: COMMON NORMALS: Normal to inspection, nondistended, normoactive bowel sounds present, Soft to palpation, non-tender, No hepatosplenomegaly present and no masses AUSCULTATION: Yes normoactive bowel sounds PALPATION: Yes Soft to palpation and Yes No hepatosplenomegaly present RECTAL EXAM: Yes deferred : COMMON NORMALS: Yes no CVA tenderness BLADDER/KIDNEY EXAM: Yes no CVA tenderness Back/Pelvis: COMMON NORMALS: no CVA tenderness Extremity: NARRATIVE EXTREMITY EXAM: Marked redness of rt lower extremity with severe Tenderness Neuro: COMMON NORMALS: patient oriented x3 Discharge Data 2 Data Completed and Pending: Completed Studies During Hospitalization Category Date Time Status XR chest 1V daysi ble [id number] Routine Exams 09/03/21 02:52 [place] [id number] Urgent Ultrasound 09/02/21 16:41 Completed Pending at discharge Category Date Time Status Basic Metabolic P faheem AM LABS Lab 09/06/21 04:00 Ordered Basic Metabolic P faheem AM LABS Lab 09/07/21 04:00 Ordered Blood Culture Sta t Lab 09/03/21 08:41 Results Complete Blood Co unt w/Auto AM LABS Lab 09/06/21 04:00 Ordered Complete Blood Co unt w/Auto AM LABS Lab 09/07/21 04:00 Ordered Labs from last 24 hours 09/05/21 09/05/21 09/05/21 06:34 05:23 05:23 WBC 10.2 H RBC 4.44 Hgb 13.3 Hct 40.3 L MCV 90.8 MCH 30.0 MCHC 33.0 RDW 14.0 Plt Count 297 MPV 9.4 Neut % (Auto) 56.8 Lymph % (Auto) 22.3 [place] % (Auto) 13.6 Eos % (Auto) 1.7 Baso % (Auto) 0.9 Neut # (Auto) 5.81 Lymph # (Auto) 2.3 [place] # (Auto) 1.4 H Eos # (Auto) 0.2 Baso # (Auto) 0.1 Nucleated RBC % (a uto) 0 Nucleated RBCs # 0.0 Sodium 139 Potassium 4.1 Chloride 106 Carbon Dioxide 21 L Anion Gap 16.1 BUN 9 Creatinine 0.7 GFR Calculation 116.2 Glucose 101 POC Glucose 101 Calculated Osmolal ity 287 Calcium 9.1 09/04/21 21:17 WBC RBC Hgb Hct MCV MCH MCHC RDW Plt Count MPV Neut % (Auto) Lymph % (Auto) [place] % (Auto) Eos % (Auto) Baso % (Auto) Neut # (Auto) Lymph # (Auto) [place] # (Auto) Eos # (Auto) Baso # (Auto) Nucleated RBC % (a uto) Nucleated RBCs # Sodium Potassium Chloride Carbon Dioxide Anion Gap BUN Creatinine GFR Calculation Glucose POC Glucose 132 H Calculated Osmolal ity Calcium Vitals: Last Vital Signs Temp 97.8 F 09/05/21 07:20 Pulse 73 09/05/21 07:20 Resp 18 09/05/21 07:20 BP 121/71 09/05/21 07:20 Pulse Ox 98 09/05/21 07:20 Discharge Plan Discharge Patient Disposition: Home Condition: Stable Prescriptions: New Augmentin 500-125 mg tablet 1 tab PO BID Qty: 10 RF: 0 levofloxacin 500 mg tablet 500 mg PO DAILY 10 Days RF: 0 Pain Reliever (acetaminophen) 325 mg tablet 325 mg PO Q6H PRN (Reason: pain) Qty: 14 RF: 0 Continued montelukast [Singulair] 10 mg tablet 10 mg PO DAILY RF: 0 potassium chloride 20 mEq tablet extended release 20 meq PO DAILY RF: 0 albuterol sulfate [ProAir HFA] 90 mcg/actuation HFA aerosol inhaler 2 puff INHALATION Q6H PRN (Reason: Shortness Of Breath) RF: 0 budesonide-formoterol [Symbicort] 160-4.5 mcg/actuation HFA aerosol inhaler 2 puff INHALATION BID RF: 0 meloxicam 15 mg tablet 15 mg PO DAILY RF: 0 lansoprazole 15 mg capsule,delayed release(DR/EC) 30 mg PO DAILY RF: 0 sildenafil 100 mg tablet 100 mg PO DAILY PRN (Reason: sexual activity) Qty: 20 RF: 12 lisinopril 20 mg tablet 20 mg PO DAILY RF: 0 terazosin 10 mg capsule 10 mg PO DAILY RF: 0 Lasix 40 mg Tablet 40 mg PO DAILY 14 Days Qty: 14 RF: 0 Discharge Orders: Discharge Order (Routine); Ordered 09/05/21 Ordered By: Kike Harman Referrals: Deon Abebe MD [Primary Care Provider] - 09/12/21 11:40 am Discharge Diet: Regular Discharge Activity: Resume usual activity Patient Instructions: Acetaminophen (By mouth), Amoxicillin/Clavulanate Potassium (By mouth), Levofloxacin (By mouth), Opioid Safety Discharge Attestations Time Spent in Discharge Care*: less than 30 min Specific Discharge Activities: educating patient, educating and/or supporting family/caregiver, discussing with pcp/other providers, discussing with medical case worker/social workers/dc planners, documenting/other paperwork and evaluating patient/reviewing data Status at Discharge: Cognitive status at discharge: cognitively intact , Behavioral status at discharge: cooperative , Functional status at discharge: independent ambulation Overall status at discharge: patient is back to baseline Quality Metrics Clinical Quality Measures During this hospital stay, did patient experience: None Coding Level of Care Code Acute Chg FW DC note Diagnoses Cellulitis L03.115 Laterality: right Site of cellulitis: extremity Site of cellulitis of extremity: lower extremity Bacteremia due to group B Streptococcus R78.81; B95.1
== END 2021-09-05 13:02 | disposition home or self-care (01) | DRG 603 ==
LOC: ER 23:14 → MEDSURG 23:58
PROVIDERS: Family Medicine; Admitting Provider Student in an Organized Health Care Education/Training Program; Emergency Provider Emergency Medicine; PCP Family Medicine; Visit Provider Internal Medicine
DX: L03.115 Cellulitis of right lower limb (principal); Z68.43 Body mass index [BMI] 50.0-59.9, adult; B95.1 Streptococcus, group B, as the cause of diseases classified elsewhere; K21.9 Gastro-esophageal reflux disease without esophagitis; I10 Essential (primary) hypertension; E66.01 Morbid (severe) obesity due to excess calories
CPT/HCPCS: 36415; 36416; 71045; 80048; 80053; 80074; 80202; 82962; 83036; 85025; 85651; 87040; 93971; 96365; 96372; 99285; J1650; J2543; J3370; J7040; J7050

== ENCOUNTER → 2021-09-22 07:56 | Outpatient (BNVA) | payer OTHER, SELFPAY | PROVIDERS: PCP Family Medicine; Visit Provider Urology | DX: N28.89 Other specified disorders of kidney and ureter (principal); C67.0 Malignant neoplasm of trigone of bladder; N52.1 Erectile dysfunction due to diseases classified elsewhere | CPT/HCPCS: 81003 ==

== ENCOUNTER → 2022-03-09 09:42 | Outpatient (BNVA) | payer OTHER, SELFPAY | PROVIDERS: PCP Family Medicine; Visit Provider Family Medicine | DX: Z00.00 Encounter for general adult medical examination without abnormal findings (principal); I10 Essential (primary) hypertension; R73.01 Impaired fasting glucose; Z51.81 Encounter for therapeutic drug level monitoring | CPT/HCPCS: 80053; 80061; 83036; 85025 ==

== ENCOUNTER 2022-04-06 08:10 | Outpatient (CLI) | payer OTHER, SELFPAY ==
--- NOTE | 2022-04-06 08:20 | XR_ITS ---
WS: [email or web address] Lumbar spine, 3 views, 04/06/2022 Clinical Data: Lumbar radiculopathy Comparison: Lumbar spine, 03/25/2017. Findings: No compression fractures or subluxation is seen. There is a slight levoscoliosis. There is degenerati ve disc narrowing at L5-S1. There is anterior osteoarthritic spurring L1-L5. The transverse processes and SI joints are normal. XR/XR lumbar spine 2-3V* [id number] Impression: 1. Levoscoliosis and minimal osteoarthritis. 2. Degenerative disc narrowing L5-S1.
--- NOTE | 2022-04-06 08:20 | XR_ITS ---
WS: [email or web address] Cervical spine, AP, odontoid, lateral views in flexion, extension and neutral position, 04/06/2022 Clinical Data: Neck pain Comparison: Cervical spine, 03/25/2017. Findings: No compression fractures are seen. There is degenerative disc narrowing at C5-C6. On the la teral views the C6 and C7 vertebral bodies are obscured by the patient's shoulders. There is osteoart hritic spurring at C3-C5. There is no prevertebral soft tissue swelling. The odontoid is unremarkable . The soft tissues of the neck show calcification in the region of the left carotid bifurcation. On f lexion and extension there is no limitation of motion or subluxation. Impression: 1. Osteoarthritis C3-C5. 2. Degenerative disc narrowing C5-C6. 3. The lateral views of C6 and C7 are obscured. 4. No limitation of motion occurs on flexion or extension.
== END 2022-04-06 08:11 | disposition home or self-care (01) ==
LOC: RAD 08:13
PROVIDERS: PCP Family Medicine; Visit Provider Family Medicine
DX: M54.12 Radiculopathy, cervical region (principal); M54.16 Radiculopathy, lumbar region; M41.86 Other forms of scoliosis, lumbar region; M47.812 Spondylosis without myelopathy or radiculopathy, cervical region
CPT/HCPCS: 72050; 72100

== ENCOUNTER → 2022-09-28 11:45 | Outpatient (BNVA) | payer OTHER, SELFPAY | PROVIDERS: PCP Family Medicine; Visit Provider Family Medicine | DX: L02.419 Cutaneous abscess of limb, unspecified (principal) | CPT/HCPCS: 87070 ==

== ENCOUNTER → 2023-02-26 09:36 | Outpatient (BNVA) | payer OTHER, SELFPAY | PROVIDERS: PCP Family Medicine; Visit Provider Family Medicine | DX: R73.03 Prediabetes (principal); R42 Dizziness and giddiness; Z51.81 Encounter for therapeutic drug level monitoring; Z13.220 Encounter for screening for lipoid disorders; Z12.5 Encounter for screening for malignant neoplasm of prostate | CPT/HCPCS: 80053; 80061; 83036; 84153; 85025 ==

== ENCOUNTER → 2023-05-08 09:38 | Outpatient (BNVA) | payer OTHER, SELFPAY | PROVIDERS: PCP Family Medicine; Visit Provider Family Medicine | DX: Z90.5 Acquired absence of kidney (principal); N28.89 Other specified disorders of kidney and ureter | CPT/HCPCS: 80048 ==

== ENCOUNTER 2023-05-21 07:28 | Outpatient (CLI) | payer OTHER, SELFPAY ==
--- NOTE | 2023-05-21 07:41 | US_ITS ---
WS: [id number] RENAL ULTRASOUND URINARY BLADDER ULTRASOUND HISTORY: Post void residual volume only COMPARISON: None available. TECHNIQUE: 2-D and color Doppler imaging of the kidney submitted. Prior RIGHT nephrectomy. Left kidney: 12.8 cm x 6.7 cm x 6.6 cm. Limited visualization of the LEFT kidney due to body habitus No hydronephrosis identified. It would be difficult to exclude a solid mass Aorta: Normal. Urinary Bladder: Normally distended bladder. No significant post void residual. IMPRESSION: 1. No post void urinary bladder residual. 2. Prior RIGHT nephrectomy. 3. Limited visualization of the LEFT kidney due to body habitus. No abnormality seen.
== END 2023-05-21 07:29 | disposition home or self-care (01) ==
PROVIDERS: PCP Family Medicine; Visit Provider Family Medicine
DX: R35.0 Frequency of micturition (principal); Z90.5 Acquired absence of kidney
CPT/HCPCS: 76770; 76857

== ENCOUNTER 2023-05-28 08:54 | Oncology outpatient (recurring) (ONCR) | payer OTHER, SELFPAY ==
[2023-05-28 08:58] VITALS: BP 129/71; PULSE 81; RESP 20; TEMP 36.8; O2SAT 96
[2023-05-28 09:21] LABS: Basophils # 0.1 10^3/uL (0.0-0.1); Basophils % 0.9 %; Eosinophils # 0.2 10^3/uL (0.0-0.8); Eosinophils % 2.6 %; Lymphocytes # 1.5 10^3/uL (0.8-4.8); Lymphocytes % 22.1 %; Mean Corpuscular Hemoglobin 30.6 pg (27-33); Mean Corpuscular Volume 89.7 fl (82-101); Mean Platelet Volume 9.1 fL (7.4-10.4); Monocytes # 0.6 10^3/uL (0.2-0.9); Monocytes % 9.2 %; Neutrophils # 4.42 10^3/uL (1.8-7.7); Neutrophils % 64.6 %; Nucleated Red Blood Cells % 0 %; Platelet Count 280 10^3/cmm (157-399); Red Blood Count 4.68 10^6/uL (3.85-5.65); Red Cell Distribution Width 13.6 % (12.1-15.1); White Blood Count 6.84 10^3/uL (3.29-11.43)
[2023-05-28 09:51] LABS: Alanine Aminotransferase 23 U/L (0-41); Albumin Level 4.4 g/dL (3.5-5.2); Alkaline Phosphatase 113 U/L (40-130); Anion Gap 15.3 (5-19); Aspartate Amino Transferase 18 U/L (0-40); Blood Urea Nitrogen 18 mg/dL (6-20); Calcium 9.8 mg/dL (8.5-10.5); Carbon Dioxide 26 mmol/L (22-29); Chloride 103 mmol/L (98-107); Cortisol Random 9.38 ug/dL (2.47-19.5); Globulin 2.8 g/dL (1.3-4.6); Glomerular Filtration Rate 51.9 mL/min (90-130); Glucose 130 mg/dL (65-115); Osmolality Calculated 294 mOsm/kg (285-295); Potassium 4.3 mmol/L (3.5-5.1); Sodium 140 mmol/L (136-145); Thyroid Stimulating Hormone 1.38 uIU/mL (0.27-4.20); Total Bilirubin 0.6 mg/dL (0.15-1.2); Total Protein 7.2 g/dL (6.6-8.7)
[2023-05-28] MEDS: sodium chloride 0.9% 250 ML 75 ML IV (12:07)
[2023-05-28] MEDS: pembrolizumab 200 MG in sodium chloride 0.9% 250 ML 516 MG IV (12:39)
[2023-05-28 13:50] VITALS: BP 120/58; PULSE 71; RESP 16; TEMP 36.5; O2SAT 97
== END 2023-05-28 23:59 | disposition home or self-care (01) ==
PROVIDERS: PCP Family Medicine; Visit Provider Internal Medicine Medical Oncology
DX: Z51.12 Encounter for antineoplastic immunotherapy (principal); C64.1 Malignant neoplasm of right kidney, except renal pelvis
CPT/HCPCS: 80053; 82533; 84443; 85025; 96413; J7050; J9271

== ENCOUNTER 2023-06-21 08:00 | Oncology outpatient (recurring) (ONCR) | payer OTHER, SELFPAY ==
[2023-06-07 08:35] VITALS: BP 139/82; PULSE 84; RESP 16; TEMP 36.6; O2SAT 97
[2023-06-07 08:53] LABS: Basophils % 0.7 %; Eosinophils # 0.1 10^3/uL (0.0-0.8); Eosinophils % 2.2 %; Hematocrit 44.8 % (37-53); Lymphocytes # 0.6 10^3/uL (0.8-4.8); Lymphocytes % 11.9 %; Mean Corpuscular HGB Conc 33.7 g/dL (30-55); Mean Corpuscular Hemoglobin 30.9 pg (27-33); Mean Corpuscular Volume 91.6 fl (82-101); Mean Platelet Volume 8.7 fL (7.4-10.4); Monocytes # 0.7 10^3/uL (0.2-0.9); Monocytes % 12.6 %; Neutrophils # 3.88 10^3/uL (1.8-7.7); Neutrophils % 71.9 %; Nucleated Red Blood Cells % 0 %; Platelet Count 241 10^3/cmm (157-399); Red Blood Count 4.89 10^6/uL (3.85-5.65); Red Cell Distribution Width 13.7 % (12.1-15.1)
[2023-06-07 09:09] LABS: Alanine Aminotransferase 21 U/L (0-41); Albumin Level 4.2 g/dL (3.5-5.2); Alkaline Phosphatase 108 U/L (40-130); Blood Urea Nitrogen 16 mg/dL (6-20); Calcium 9.5 mg/dL (8.5-10.5); Carbon Dioxide 24 mmol/L (22-29); Chloride 101 mmol/L (98-107); Globulin 2.8 g/dL (1.3-4.6); Glomerular Filtration Rate 56.5 mL/min (90-130); Glucose 115 mg/dL (65-115); Osmolality Calculated 282 mOsm/kg (285-295); Sodium 135 mmol/L (136-145); Total Bilirubin 0.8 mg/dL (0.15-1.2)
[2023-06-07 09:13] LABS: Anion Gap 13.9 (5-19); Potassium 3.9 mmol/L (3.5-5.1)
[2023-06-07 09:14] LABS: Aspartate Amino Transferase 24 U/L (0-40)
[2023-06-21 09:15] LABS: Basophils % 0.3 %; Eosinophils # 0.2 10^3/uL (0.0-0.8); Eosinophils % 1.5 %; Hematocrit 43.6 % (37-53); Lymphocytes # 1.4 10^3/uL (0.8-4.8); Lymphocytes % 12.1 %; Mean Corpuscular HGB Conc 33.3 g/dL (30-55); Mean Corpuscular Volume 90.1 fl (82-101); Mean Platelet Volume 9.1 fL (7.4-10.4); Monocytes # 0.9 10^3/uL (0.2-0.9); Monocytes % 7.3 %; Neutrophils # 8.97 10^3/uL (1.8-7.7); Neutrophils % 77.5 %; Nucleated Red Blood Cells % 0 %; Platelet Count 330 10^3/cmm (157-399); Red Blood Count 4.84 10^6/uL (3.85-5.65); Red Cell Distribution Width 13.2 % (12.1-15.1); White Blood Count 11.58 10^3/uL (3.29-11.43)
[2023-06-21 09:50] LABS: Alanine Aminotransferase 19 U/L (0-41); Albumin Level 4.2 g/dL (3.5-5.2); Alkaline Phosphatase 129 U/L (40-130); Anion Gap 15.7 (5-19); Aspartate Amino Transferase 16 U/L (0-40); Blood Urea Nitrogen 26 mg/dL (6-20); Calcium 9.9 mg/dL (8.5-10.5); Carbon Dioxide 26 mmol/L (22-29); Chloride 100 mmol/L (98-107); Glomerular Filtration Rate 51.9 mL/min (90-130); Glucose 149 mg/dL (65-115); Osmolality Calculated 294 mOsm/kg (285-295); Potassium 3.7 mmol/L (3.5-5.1); Sodium 138 mmol/L (136-145); Thyroid Stimulating Hormone 1.17 uIU/mL (0.27-4.20); Total Bilirubin 0.5 mg/dL (0.15-1.2); Total Protein 7.2 g/dL (6.6-8.7)
[2023-06-21] MEDS: pembrolizumab 200 MG in sodium chloride 0.9% 250 ML 516 MG IV (10:36)
[2023-06-21] MEDS: sodium chloride 0.9% 250 ML 75 ML IV (11:09)
[2023-06-21 11:10] VITALS: BP 140/74; PULSE 75; RESP 17; TEMP 36.2; O2SAT 97
[2023-06-21] MEDS: methylPREDNISolone sod succ 40 mg SDV 30 MG IV (11:23)
[2023-06-21 12:03] VITALS: BP 118/68; PULSE 71; TEMP 36.9; O2SAT 97
== END 2023-06-21 23:59 | disposition home or self-care (01) ==
PROVIDERS: Nurse Practitioner Family; PCP Family Medicine; Visit Provider Internal Medicine Medical Oncology
DX: Z51.12 Encounter for antineoplastic immunotherapy (principal); C64.1 Malignant neoplasm of right kidney, except renal pelvis
CPT/HCPCS: 36415; 80053; 84443; 85025; 96375; 96413; J2920; J7050; J9271

== ENCOUNTER 2023-07-19 08:45 | Oncology outpatient (recurring) (ONCR) | payer OTHER, SELFPAY ==
[2023-07-12 08:20] VITALS: BP 161/90; PULSE 83; TEMP 36.5; O2SAT 97
[2023-07-12 08:25] LABS: Basophils % 0.4 %; Eosinophils # 0.1 10^3/uL (0.0-0.8); Eosinophils % 0.5 %; Hematocrit 45.2 % (37-53); Lymphocytes # 1.8 10^3/uL (0.8-4.8); Lymphocytes % 19.7 %; Mean Corpuscular HGB Conc 33.6 g/dL (30-55); Mean Corpuscular Hemoglobin 30.5 pg (27-33); Mean Corpuscular Volume 90.6 fl (82-101); Mean Platelet Volume 8.7 fL (7.4-10.4); Monocytes # 0.6 10^3/uL (0.2-0.9); Monocytes % 6.3 %; Neutrophils # 6.65 10^3/uL (1.8-7.7); Neutrophils % 72.4 %; Nucleated Red Blood Cells % 0 %; Platelet Count 269 10^3/cmm (157-399); Red Blood Count 4.99 10^6/uL (3.85-5.65); Red Cell Distribution Width 13.5 % (12.1-15.1); White Blood Count 9.19 10^3/uL (3.29-11.43)
[2023-07-12 08:54] LABS: Alanine Aminotransferase 26 U/L (0-41); Albumin Level 4.1 g/dL (3.5-5.2); Alkaline Phosphatase 105 U/L (40-130); Anion Gap 14.9 (5-19); Aspartate Amino Transferase 16 U/L (0-40); Blood Urea Nitrogen 18 mg/dL (6-20); Calcium 9.5 mg/dL (8.5-10.5); Carbon Dioxide 22 mmol/L (22-29); Chloride 103 mmol/L (98-107); Globulin 2.7 g/dL (1.3-4.6); Glomerular Filtration Rate 68.5 mL/min (90-130); Glucose 142 mg/dL (65-115); Osmolality Calculated 286 mOsm/kg (285-295); Potassium 3.9 mmol/L (3.5-5.1); Sodium 136 mmol/L (136-145); Thyroid Stimulating Hormone 1.06 uIU/mL (0.27-4.20); Total Bilirubin 0.6 mg/dL (0.15-1.2); Total Protein 6.8 g/dL (6.6-8.7)
[2023-07-12 10:55] LABS: Erythrocyte Sedimentation Rate 15 mm/hr (0-10)
[2023-07-12 11:38] LABS: Creatine Phosphokinase 22 U/L (39-308)
[2023-07-15 14:21] LABS: Cyclic Citrullinated Peptide <16 UNITS
[2023-07-15 15:30] LABS: Anti-Nuclear Antibody Screen NEGATIVE (NEGATIVE)
[2023-07-19 08:49] LABS: Basophils # 0.1 10^3/uL (0.0-0.1); Basophils % 0.8 %; Eosinophils # 0.1 10^3/uL (0.0-0.8); Eosinophils % 1.7 %; Hematocrit 45.6 % (37-53); Lymphocytes # 1.6 10^3/uL (0.8-4.8); Lymphocytes % 22.2 %; Mean Corpuscular HGB Conc 33.3 g/dL (30-55); Mean Corpuscular Volume 89.9 fl (82-101); Mean Platelet Volume 8.8 fL (7.4-10.4); Monocytes # 0.7 10^3/uL (0.2-0.9); Monocytes % 9.2 %; Neutrophils % 65.3 %; Nucleated Red Blood Cells % 0 %; Platelet Count 262 10^3/cmm (157-399); Red Blood Count 5.07 10^6/uL (3.85-5.65); Red Cell Distribution Width 13.9 % (12.1-15.1)
[2023-07-19 09:20] LABS: Alanine Aminotransferase 22 U/L (0-41); Albumin Level 4.2 g/dL (3.5-5.2); Alkaline Phosphatase 101 U/L (40-130); Anion Gap 14.8 (5-19); Aspartate Amino Transferase 14 U/L (0-40); Blood Urea Nitrogen 14 mg/dL (6-20); Calcium 9.6 mg/dL (8.5-10.5); Carbon Dioxide 25 mmol/L (22-29); Chloride 103 mmol/L (98-107); Globulin 2.7 g/dL (1.3-4.6); Glucose 118 mg/dL (65-115); Osmolality Calculated 290 mOsm/kg (285-295); Potassium 3.8 mmol/L (3.5-5.1); Sodium 139 mmol/L (136-145); Total Bilirubin 0.8 mg/dL (0.15-1.2); Total Protein 6.9 g/dL (6.6-8.7)
[2023-07-19] MEDS: pembrolizumab 200 MG in sodium chloride 0.9% 250 ML 516 MG IV (11:08)
[2023-07-19] MEDS: sodium chloride 0.9% (100 ml) 100 ML 25 ML (11:14)
[2023-07-19 11:53] VITALS: BP 144/89; PULSE 80; TEMP 36.7
== END 2023-07-19 23:59 | disposition home or self-care (01) ==
PROVIDERS: Nurse Practitioner Family; PCP Family Medicine; Visit Provider Internal Medicine Medical Oncology
DX: C64.1 Malignant neoplasm of right kidney, except renal pelvis (principal); M25.50 Pain in unspecified joint; Z79.899 Other long term (current) drug therapy; Z51.11 Encounter for antineoplastic chemotherapy
CPT/HCPCS: 36415; 80053; 82550; 84443; 85025; 85651; 86038; 86140; 86200; 86431; 96413; J7050; J9271

== ENCOUNTER 2023-08-09 07:33 | Oncology outpatient (recurring) (ONCR) | payer OTHER, SELFPAY ==
[2023-08-09 07:53] VITALS: BP 124/74; PULSE 70; TEMP 36.6; O2SAT 96
[2023-08-09 08:08] LABS: Basophils # 0.1 10^3/uL (0.0-0.1); Basophils % 0.6 %; Eosinophils # 0.1 10^3/uL (0.0-0.8); Eosinophils % 0.6 %; Hematocrit 45.7 % (37-53); Lymphocytes # 1.3 10^3/uL (0.8-4.8); Lymphocytes % 15.1 %; Mean Corpuscular HGB Conc 32.8 g/dL (30-55); Mean Corpuscular Hemoglobin 29.8 pg (27-33); Mean Corpuscular Volume 90.7 fl (82-101); Monocytes # 0.6 10^3/uL (0.2-0.9); Monocytes % 7.1 %; Neutrophils # 6.33 10^3/uL (1.8-7.7); Nucleated Red Blood Cells % 0 %; Platelet Count 281 10^3/cmm (157-399); Red Blood Count 5.04 10^6/uL (3.85-5.65); Red Cell Distribution Width 14.2 % (12.1-15.1); White Blood Count 8.33 10^3/uL (3.29-11.43)
[2023-08-09 08:29] LABS: Alanine Aminotransferase 21 U/L (0-41); Albumin Level 4.1 g/dL (3.5-5.2); Alkaline Phosphatase 110 U/L (40-130); Anion Gap 15.2 (5-19); Aspartate Amino Transferase 13 U/L (0-40); Blood Urea Nitrogen 18 mg/dL (6-20); Calcium 9.9 mg/dL (8.5-10.5); Carbon Dioxide 24 mmol/L (22-29); Chloride 103 mmol/L (98-107); Globulin 2.9 g/dL (1.3-4.6); Glomerular Filtration Rate 68.5 mL/min (90-130); Glucose 165 mg/dL (65-115); Osmolality Calculated 292 mOsm/kg (285-295); Potassium 4.2 mmol/L (3.5-5.1); Sodium 138 mmol/L (136-145); Thyroid Stimulating Hormone 0.91 uIU/mL (0.27-4.20); Total Bilirubin 0.5 mg/dL (0.15-1.2)
[2023-08-09] MEDS: pembrolizumab 200 MG in sodium chloride 0.9% 250 ML 516 MG IV (10:05)
== END 2023-08-09 23:59 | disposition home or self-care (01) ==
PROVIDERS: Internal Medicine; PCP Family Medicine; Visit Provider Family Medicine
DX: Z51.12 Encounter for antineoplastic immunotherapy (principal); C64.1 Malignant neoplasm of right kidney, except renal pelvis
CPT/HCPCS: 80053; 84443; 85025; 96413; J7050; J9271

== ENCOUNTER 2023-08-23 11:53 | Outpatient (CLI) | payer OTHER, SELFPAY ==
[2023-08-23] MEDS: iohexol 350 mg/mL 500 mL Btl (per mL) PO (12:13)
--- NOTE | 2023-08-23 13:00 | CTR_ITS ---
PROCEDURE INFORMATION: Exam: CT Chest With Contrast; Diagnostic Exam date and time: 08/23/2023 1:30 PM Age: 57 years old Clinical indication: Condition or disease; Kidney, right; Other: RT kidney cancer; Primary cancer: RT kidney removal 04/2023 wo difficulties; Prior surgery; Surgery date: 1-6 months; Additional info: [place] TECHNIQUE: Imaging protocol: Diagnostic computed tomography of the chest with contrast. Radiation optimization: All CT scans at this facility use at least one of these dose optimization techniques: automated exposure control; mA and/or kV adjustment per patient size (includes targeted exams where dose is matched to clinical indication); or iterative reconstruction. Contrast material: OMNI 350; Contrast volume: 95 ml; Contrast route: INTRAVENOUS (IV); REPORTING DATA: Count of CT and Cardiac NM exams in prior 12 months: This patient has received 0 known CTs and 0 known cardiac nuclear medicine studies in the 12 months prior to the current study. COMPARISON: CR XR chest 1V portable [id number] 09/03/2021 5:20 AM RADIATION DOSE METRICS: Total DLP (mGy-cm): 3302.22 FINDINGS: Lungs: Unremarkable. No consolidation. No masses. A couple of tiny calcified granulomas in the lower left lung indicating minimal benign healed granulomatous disease. Pleural spaces: Unremarkable. No pneumothorax. No pleural effusion. Heart: Unremarkable. No cardiomegaly. No pericardial effusion. Lymph nodes: Unremarkable. No enlarged lymph nodes. Vasculature: Unremarkable. No aortic aneurysm. Bones/joints: Mild thoracic dextroscoliosis. Spondylotic change thoracic spine. Soft tissues: Unremarkable. PROCEDURE INFORMATION: Exam: CT Abdomen And Pelvis With Contrast Exam date and time: 08/23/2023 1:30 PM Age: 57 years old Clinical indication: Condition or disease; Kidney, right; Other: RT kidney cancer; Primary cancer: RT kidney removal 04/2023 wo difficulties; Prior surgery; Surgery date: 1-6 months; Additional info: [facility] TECHNIQUE: Imaging protocol: Computed tomography of the abdomen and pelvis with contrast. Radiation optimization: All CT scans at this facility use at least one of these dose optimization techniques: automated exposure control; mA and/or kV adjustment per patient size (includes targeted exams where dose is matched to clinical indication); or iterative reconstruction. Contrast material: OMNI 350; Contrast volume: 95 ml; Contrast route: INTRAVENOUS (IV); REPORTING DATA: Count of CT and Cardiac NM exams in prior 12 months: This patient has received 0 known CTs and 0 known cardiac nuclear medicine studies in the 12 months prior to the current study. COMPARISON: CT abdomen pelvis w con* [id number] 09/01/2021 12:08 AM RADIATION DOSE METRICS: Total DLP (mGy-cm): 3302.22 FINDINGS: Liver: Mild fatty liver. No focal mass. Mild enlargement.. Gallbladder and bile ducts: Normal. No calcified stones. No ductal dilation. Pancreas: Normal. No ductal dilation. Spleen: Mild enlargement. No focal mass. Adrenal glands: Normal. No mass. Kidneys and ureters: Postsurgical changes with previous right nephrectomy. A small amount of hypodensity is seen within the posterior right renal bed adjacent to the right psoas margin and adjacent to the posterior right lobe of the liver. This includes a small amount fluid density with Hounsfield measurements. This measures approximately 3.5 x 1 cm. There is no thick wall or air density or suspicious findings of abscess. This likely represents postsurgical changes of the posterior right renal bed. A rounded hypodense focus noted within the posterior cortex of the mid to upper pole of the left kidney approximately 2 cm in size. Hounsfield density measurements are slightly greater than fluid density. This is similar to prior exam 2020, though previously measuring 1.5 cm and therefore slightly more prominent with today's exam.. There was limited evaluation of the left kidney with recent renal ultrasound to verify cyst versus solid. Left kidney is otherwise unremarkable. No hydronephrosis or perinephric stranding or urinary tract stone. Stomach and bowel: A moderate size hernia of the anterolateral right mid abdominal wall is seen, containing mesenteric fat and nondilated small bowel. Mouth of the hernia measures approximately 8 cm. Bowel appears unremarkable otherwise. No obstruction. No focal inflammatory changes. Appendix: No evidence of appendicitis. Intraperitoneal space: No free fluid or ascites. No free air.. Vasculature: [id number] atherosclerotic vascular calcification without aneurysmal dilatation of the abdominal aorta. Lymph nodes: Unremarkable. No enlarged lymph nodes. Urinary bladder: Unremarkable as visualized. Reproductive: Mild prostate enlargement. Bones/joints: Spondylotic change of the lumbar spine no acute osseous abnormality. Soft tissues: Unremarkable. CT/CT chest abdpel w/*[id number] IMPRESSION: No acute findings in the chest. IMPRESSION: 1. Previous right nephrectomy with suggestion of postsurgical change in the posterior right renal bed as noted above. This could be followed up with continued surveillance or further evaluated with PET-CT. 2. Approximately 2 cm rounded hypodense focus within the mid to upper pole cortex of the left kidney. This is similar to prior CT of 2020 though mildly increased in size approximately 5 mm. This measures slightly greater than fluid density. This still may represent a cyst, though for continued surveillance with recent renal ultrasound not helpful versus follow-up with PET-CT. 3. Moderate-sized hernia of the anterolateral right mid abdominal wall containing mesenteric fat and nondilated small bowel. 4. No acute findings otherwise. COMMENTS: Consistent with the [employer]'s Incidental Findings Committee white paper (J Am Selam Radiol 2018): Any incidental renal lesion less than 1 cm or classified as too small to characterize, or any incidental cystic renal lesion characterized as simple-appearing, is likely benign. No follow-up imaging is recommended for these lesions per consensus recommendations based on imaging criteria.
[2023-08-23] MEDS: iohexol 350 mg/mL 500 mL Btl (per mL) IV (13:46)
== END 2023-08-23 11:54 | disposition home or self-care (01) ==
LOC: RAD 11:53
PROVIDERS: PCP Family Medicine; Visit Provider Internal Medicine
DX: C64.1 Malignant neoplasm of right kidney, except renal pelvis (principal); Z90.5 Acquired absence of kidney; K43.9 Ventral hernia without obstruction or gangrene; R93.422 Abnormal radiologic findings on diagnostic imaging of left kidney
CPT/HCPCS: 71260; 74177; Q9967

== ENCOUNTER 2023-08-30 07:28 | Oncology outpatient (recurring) (ONCR) | payer OTHER, SELFPAY ==
[2023-08-30 08:06] VITALS: BP 130/81; PULSE 69; RESP 18; TEMP 36.6; O2SAT 95
[2023-08-30 08:14] LABS: Basophils # 0.1 10^3/uL (0.0-0.1); Basophils % 0.6 %; Eosinophils # 0.1 10^3/uL (0.0-0.8); Eosinophils % 0.5 %; Hematocrit 46.8 % (37-53); Lymphocytes # 1.7 10^3/uL (0.8-4.8); Lymphocytes % 17.7 %; Mean Corpuscular HGB Conc 34.2 g/dL (30-55); Mean Corpuscular Hemoglobin 29.9 pg (27-33); Mean Corpuscular Volume 87.5 fl (82-101); Mean Platelet Volume 8.8 fL (7.4-10.4); Monocytes # 0.7 10^3/uL (0.2-0.9); Monocytes % 6.9 %; Neutrophils # 6.89 10^3/uL (1.8-7.7); Neutrophils % 73.4 %; Nucleated Red Blood Cells % 0 %; Platelet Count 286 10^3/cmm (157-399); Red Blood Count 5.35 10^6/uL (3.85-5.65); Red Cell Distribution Width 14.3 % (12.1-15.1); White Blood Count 9.39 10^3/uL (3.29-11.43)
[2023-08-30 08:42] LABS: Estmated Average Glucose 128; Hemoglobin A1C 6.1 % (4.0-6.0)
[2023-08-30 08:47] LABS: Alanine Aminotransferase 23 U/L (0-41); Albumin Level 4.2 g/dL (3.5-5.2); Alkaline Phosphatase 97 U/L (40-130); Anion Gap 13.8 (5-19); Aspartate Amino Transferase 15 U/L (0-40); Blood Urea Nitrogen 15 mg/dL (6-20); Calcium 10.1 mg/dL (8.5-10.5); Carbon Dioxide 25 mmol/L (22-29); Chloride 101 mmol/L (98-107); Creatinine Clr Calc Pharmacy 119.8199; Glomerular Filtration Rate 68.5 mL/min (90-130); Glucose 137 mg/dL (65-115); Lactate Dehydrogenase 145 U/L (135-225); Osmolality Calculated 285 mOsm/kg (285-295); Potassium 3.8 mmol/L (3.5-5.1); Sodium 136 mmol/L (136-145); Thyroid Stimulating Hormone 2.39 uIU/mL (0.27-4.20); Total Bilirubin 0.8 mg/dL (0.15-1.2); Total Protein 7.2 g/dL (6.6-8.7)
[2023-08-30] MEDS: sodium chloride 0.9% 250 ML 50 ML IV (09:59)
[2023-08-30] MEDS: pembrolizumab 200 MG in sodium chloride 0.9% 250 ML 516 MG IV (10:00)
[2023-08-30 10:50] VITALS: BP 124/68; PULSE 72; RESP 16; TEMP 36.4; O2SAT 98
== END 2023-09-01 23:59 | disposition home or self-care (01) ==
PROVIDERS: Internal Medicine; PCP Family Medicine; Visit Provider Family Medicine
DX: C64.1 Malignant neoplasm of right kidney, except renal pelvis (principal); Z51.12 Encounter for antineoplastic immunotherapy; G25.9 Extrapyramidal and movement disorder, unspecified; M25.50 Pain in unspecified joint; Z79.899 Other long term (current) drug therapy
CPT/HCPCS: 80053; 83036; 83615; 84443; 85025; 96413; J7050; J9271

== ENCOUNTER 2023-09-20 08:08 | Oncology outpatient (recurring) (ONCR) | payer OTHER, SELFPAY ==
[2023-09-20 08:26] VITALS: BP 175/100; PULSE 81; RESP 20; TEMP 36.7; O2SAT 96
[2023-09-20 08:49] LABS: Basophils # 0.1 10^3/uL (0.0-0.1); Basophils % 0.5 %; Eosinophils # 0.1 10^3/uL (0.0-0.8); Eosinophils % 0.9 %; Hematocrit 46.5 % (37-53); Lymphocytes # 1.4 10^3/uL (0.8-4.8); Lymphocytes % 14.2 %; Mean Corpuscular HGB Conc 33.5 g/dL (30-55); Mean Corpuscular Hemoglobin 29.9 pg (27-33); Mean Corpuscular Volume 89.1 fl (82-101); Mean Platelet Volume 9.1 fL (7.4-10.4); Monocytes # 0.7 10^3/uL (0.2-0.9); Monocytes % 7.1 %; Neutrophils # 7.31 10^3/uL (1.8-7.7); Neutrophils % 76.6 %; Nucleated Red Blood Cells % 0 %; Platelet Count 263 10^3/cmm (157-399); Red Blood Count 5.22 10^6/uL (3.85-5.65); Red Cell Distribution Width 14.6 % (12.1-15.1); White Blood Count 9.56 10^3/uL (3.29-11.43)
[2023-09-20 09:37] LABS: Alanine Aminotransferase 23 U/L (0-41); Albumin Level 4.2 g/dL (3.5-5.2); Alkaline Phosphatase 99 U/L (40-130); Anion Gap 15.5 (5-19); Aspartate Amino Transferase 16 U/L (0-40); Blood Urea Nitrogen 16 mg/dL (8-23); Calcium 9.8 mg/dL (8.5-10.5); Carbon Dioxide 26 mmol/L (22-29); Chloride 102 mmol/L (98-107); Globulin 2.9 g/dL (1.3-4.6); Glomerular Filtration Rate 61.8 mL/min (90-130); Glucose 160 mg/dL (65-115); Osmolality Calculated 293 mOsm/kg (285-295); Potassium 4.5 mmol/L (3.5-5.1); Sodium 139 mmol/L (136-145); Thyroid Stimulating Hormone 0.76 uIU/mL (0.27-4.20); Total Bilirubin 0.8 mg/dL (0.15-1.2); Total Protein 7.1 g/dL (6.6-8.7)
[2023-09-20] MEDS: pembrolizumab 200 MG in sodium chloride 0.9% 250 ML 516 MG IV (10:23)
[2023-09-20 11:27] VITALS: BP 148/94; PULSE 78; RESP 18; TEMP 36.2; O2SAT 97
== END 2023-09-20 23:59 | disposition home or self-care (01) ==
PROVIDERS: Nurse Practitioner Family; PCP Family Medicine; Visit Provider Family Medicine
DX: Z51.12 Encounter for antineoplastic immunotherapy (principal); C64.1 Malignant neoplasm of right kidney, except renal pelvis; G25.9 Extrapyramidal and movement disorder, unspecified; Z79.899 Other long term (current) drug therapy
CPT/HCPCS: 80053; 84443; 85025; 96413; J7050; J9271

== ENCOUNTER 2023-10-11 07:32 | Oncology outpatient (recurring) (ONCR) | payer OTHER, SELFPAY ==
[2023-10-11 07:46] VITALS: BP 145/84; PULSE 85; RESP 17; TEMP 35.9; O2SAT 97
[2023-10-11 08:17] LABS: Basophils % 0.2 %; Eosinophils # 0.1 10^3/uL (0.0-0.8); Eosinophils % 0.6 %; Lymphocytes # 1.1 10^3/uL (0.8-4.8); Mean Corpuscular HGB Conc 34.8 g/dL (30-55); Mean Corpuscular Hemoglobin 30.4 pg (27-33); Mean Corpuscular Volume 87.5 fl (82-101); Mean Platelet Volume 9.1 fL (7.4-10.4); Monocytes # 0.9 10^3/uL (0.2-0.9); Neutrophils # 10.19 10^3/uL (1.8-7.7); Neutrophils % 81.7 %; Nucleated Red Blood Cells % 0 %; Platelet Count 277 10^3/cmm (157-399); Red Blood Count 5.03 10^6/uL (3.85-5.65); Red Cell Distribution Width 14.3 % (12.1-15.1); White Blood Count 12.46 10^3/uL (3.29-11.43)
[2023-10-11 08:52] LABS: Alanine Aminotransferase 28 U/L (0-41); Alkaline Phosphatase 98 U/L (40-130); Anion Gap 15.9 (5-19); Aspartate Amino Transferase 15 U/L (0-40); Blood Urea Nitrogen 15 mg/dL (8-23); Calcium 9.6 mg/dL (8.5-10.5); Carbon Dioxide 24 mmol/L (22-29); Chloride 99 mmol/L (98-107); Globulin 2.9 g/dL (1.3-4.6); Glomerular Filtration Rate 68.3 mL/min (90-130); Glucose 211 mg/dL (65-115); Osmolality Calculated 287 mOsm/kg (285-295); Potassium 3.9 mmol/L (3.5-5.1); Sodium 135 mmol/L (136-145); Thyroid Stimulating Hormone 0.85 uIU/mL (0.27-4.20); Total Bilirubin 0.9 mg/dL (0.15-1.2); Total Protein 6.9 g/dL (6.6-8.7)
[2023-10-11] MEDS: sodium chloride 0.9% 250 ML 75 ML IV (09:35)
[2023-10-11] MEDS: pembrolizumab 200 MG in sodium chloride 0.9% 250 ML 516 MG IV (09:51)
[2023-10-11 10:36] VITALS: BP 132/75; PULSE 83; RESP 18; TEMP 36.4; O2SAT 97
== END 2023-10-11 23:59 | disposition home or self-care (01) ==
PROVIDERS: Nurse Practitioner Family; PCP Family Medicine; Visit Provider Family Medicine
DX: Z51.12 Encounter for antineoplastic immunotherapy (principal); C64.1 Malignant neoplasm of right kidney, except renal pelvis; G25.9 Extrapyramidal and movement disorder, unspecified; Z79.899 Other long term (current) drug therapy; Z87.891 Personal history of nicotine dependence; J01.90 Acute sinusitis, unspecified
CPT/HCPCS: 80053; 84443; 85025; 96413; A4222; J7050; J9271

== ENCOUNTER 2023-11-01 07:11 | Oncology outpatient (recurring) (ONCR) | payer OTHER, SELFPAY ==
[2023-11-01 07:47] LABS: Basophils % 0.4 %; Eosinophils % 0.3 %; Hematocrit 44.8 % (37-53); Lymphocytes # 1.3 10^3/uL (0.8-4.8); Mean Corpuscular HGB Conc 34.4 g/dL (30-55); Mean Corpuscular Hemoglobin 30.2 pg (27-33); Mean Corpuscular Volume 87.8 fl (82-101); Monocytes # 0.7 10^3/uL (0.2-0.9); Monocytes % 7.8 %; Neutrophils # 6.98 10^3/uL (1.8-7.7); Neutrophils % 76.1 %; Nucleated Red Blood Cells % 0 %; Platelet Count 308 10^3/cmm (157-399); Red Cell Distribution Width 14.4 % (12.1-15.1); White Blood Count 9.19 10^3/uL (3.29-11.43)
[2023-11-01 07:48] VITALS: BMI 56.3
[2023-11-01 07:49] VITALS: BP 163/108; PULSE 80; RESP 18; TEMP 36.7; O2SAT 95
[2023-11-01] MEDS: pembrolizumab 200 MG in sodium chloride 0.9% 250 ML 516 MG IV (08:05)
[2023-11-01 08:19] LABS: Alanine Aminotransferase 27 U/L (0-41); Albumin Level 4.1 g/dL (3.5-5.2); Alkaline Phosphatase 101 U/L (40-130); Anion Gap 15.1 (5-19); Aspartate Amino Transferase 17 U/L (0-40); Blood Urea Nitrogen 14 mg/dL (8-23); Calcium 9.4 mg/dL (8.5-10.5); Carbon Dioxide 24 mmol/L (22-29); Chloride 101 mmol/L (98-107); Creatinine Clr Calc Pharmacy 119.6772; Globulin 2.8 g/dL (1.3-4.6); Glomerular Filtration Rate 68.3 mL/min (90-130); Glucose 168 mg/dL (65-115); Osmolality Calculated 286 mOsm/kg (285-295); Potassium 4.1 mmol/L (3.5-5.1); Sodium 136 mmol/L (136-145); Thyroid Stimulating Hormone 0.94 uIU/mL (0.27-4.20); Total Bilirubin 0.8 mg/dL (0.15-1.2); Total Protein 6.9 g/dL (6.6-8.7)
[2023-11-01 08:46] VITALS: BP 146/98; PULSE 71; TEMP 36.8; O2SAT 98
== END 2023-11-01 23:59 | disposition home or self-care (01) ==
LOC: ONCMED 07:12
PROVIDERS: Nurse Practitioner Family; PCP Family Medicine; Visit Provider Family Medicine
DX: Z51.12 Encounter for antineoplastic immunotherapy (principal); C64.1 Malignant neoplasm of right kidney, except renal pelvis
CPT/HCPCS: 80053; 84443; 85025; 96413; A4222; J7050; J9271

== ENCOUNTER 2023-11-08 10:47 | Outpatient (CLI) | payer OTHER, SELFPAY ==
--- NOTE | 2023-11-08 11:00 | MR_ITS ---
Patient returned for contrast images 12/13/23 NOTE: Report was unsigned for reason: Order was edited. Original Signature date and time was: 11/08/23 @ 1225 WS: [email or web address] MRI BRAIN WITHOUT CONTRAST HISTORY: M54.2 - Cervicalgia COMPARISON: None available. TECHNIQUE: Diffusion imaging, multiplanar T1, T2 and FLAIR imaging obtained. Patient refused contrast evaluation. No acute infarct. Mass of variable signal intensity in the anterior RIGHT frontal lobe adjacent to the falx and abutting the dura. Mass measures 3.0 x 2.6 x 2.6 cm. There are a few scattered low signal areas within the mass which are probably hemosiderin or calcium. There are lobulated cystic areas and adjacent edema within the frontal lobe. This mass does extend to the dura. Without contrast it is difficult to tell whether this is intra-axial or extra-axial. On the sagittal T1 sequence mass does appear to be be displacing the frontal cortex posteriorly. Mild atrophy and small vessel ischemic disease. Ventricles and extra-axial spaces are normal. No inferior displacement of cerebellar tonsils. The sella turcica and pituitary gland are unremarkable. Dural venous sinuses and in[place] of [place] demonstrate no abnormality on this unenhanced studies. Paranasal sinuses: Mild mucoperiosteal thickening in the maxillary sinuses. No air-fluid levels. Mastoid air cells: Normal. Calvarium and scalp: Intact. IMPRESSION: 1. RIGHT frontal parasagittal mass of variable signal. Mass contains either hemosiderin and/or calcification and measures 3.0 x 2.6 x 2.6 cm. Mass is inseparable from the parasagittal falx and the anterior dura. Patient refused IV contrast. IV contrast is necessary for additional evaluation. This may be meningioma with peritumoral edema. Contrast is recommended. Without contrast it is difficult to tell whether this is an intra-axial or extra-axial mass. 2. Mild atrophy and small vessel ischemic disease. MTDD
--- NOTE | 2023-11-08 11:45 | MR_ITS ---
WS: [email or web address] MRI CERVICAL SPINE NONCONTRAST HISTORY: M54.2 - Cervicalgia COMPARISON: None available. Technique: Multiplanar, multisequence noncontrast imaging of the cervical spine. Straightening of the normal cervical lordosis. Slight retrolisthesis of C3. Disc spaces are narrowed and mildly desiccated. No fracture. Craniocervical junction, C1 and C2 relationship, odontoid process and soft tissues are normal. C2-C3: Diffuse annular disc bulging and a central disc protrusion with osteophytes. Mild central and bilateral foraminal stenosis. C3-C4: Diffuse annular disc bulging with osteophytic ridging and facet arthritis. Moderate central, a nd bilateral foraminal stenosis. C4-C5: Mild annular disc bulging with shallow RIGHT foraminal osteophytes. Mild central and bilateral foraminal stenosis, RIGHT greater than LEFT. C5-C6: Moderate annular disc bulging with osteophytic ridging. Moderate disc osteophyte complexes in the foramina. Severe central with bilateral foraminal stenosis. Mild facet arthritis. C6-C7: Mild annular disc bulging with a LEFT paracentral disc protrusion contacting the ventral cord and displacing the cord. Severe central and bilateral foraminal stenosis due to disc and osteophyte d isease. C7-T1: No stenosis. Paravertebral soft tissue evaluation is limited due to body habitus and motion. IMPRESSION: 1. Advanced cervical spondylosis. 2. Multilevel cervical and foraminal stenosis due to combination of disc and osteophyte disease. 3. C6-7: Severe central and bilateral foraminal stenosis due to disc and osteophyte disease. LEFT pa racentral disc protrusion contacting the cord. 4. C5-6: Severe central with bilateral foraminal stenosis due to disc osteophyte disease. 5. C3-4: Moderate central and bilateral foraminal stenosis due to disc and osteophyte disease. 6. C2-3 and C4-5: Mild central and bilateral foraminal stenosis.
== END 2023-11-08 10:48 | disposition home or self-care (01) ==
LOC: RAD 10:49
PROVIDERS: PCP Family Medicine; Visit Provider Psychiatry & Neurology Neurology
DX: M50.223 Other cervical disc displacement at C6-C7 level (principal); M47.22 Other spondylosis with radiculopathy, cervical region; M48.02 Spinal stenosis, cervical region; M25.78 Osteophyte, vertebrae; G25.2 Other specified forms of tremor
CPT/HCPCS: 70551; 70553; 72141

== ENCOUNTER → 2023-11-21 14:30 | Outpatient (BNVA) | payer OTHER, SELFPAY | PROVIDERS: PCP Family Medicine; Visit Provider Orthopaedic Surgery | DX: M47.12 Other spondylosis with myelopathy, cervical region | CPT/HCPCS: 72050 ==

== ENCOUNTER 2023-11-22 07:20 | Oncology outpatient (recurring) (ONCR) | payer OTHER, SELFPAY ==
[2023-11-22 07:52] LABS: Basophils # 0.1 10^3/uL (0.0-0.1); Basophils % 0.6 %; Eosinophils % 0.5 %; Hematocrit 44.5 % (37-53); Lymphocytes # 1.2 10^3/uL (0.8-4.8); Lymphocytes % 14.1 %; Mean Corpuscular HGB Conc 33.9 g/dL (30-55); Mean Corpuscular Hemoglobin 30.3 pg (27-33); Mean Corpuscular Volume 89.4 fl (82-101); Mean Platelet Volume 8.9 fL (7.4-10.4); Monocytes # 0.5 10^3/uL (0.2-0.9); Monocytes % 6.3 %; Neutrophils # 6.54 10^3/uL (1.8-7.7); Neutrophils % 77.7 %; Nucleated Red Blood Cells % 0 %; Platelet Count 251 10^3/cmm (157-399); Red Blood Count 4.98 10^6/uL (3.85-5.65); Red Cell Distribution Width 14.4 % (12.1-15.1); White Blood Count 8.42 10^3/uL (3.29-11.43)
[2023-11-22 08:23] LABS: Alanine Aminotransferase 23 U/L (0-41); Albumin Level 4.3 g/dL (3.5-5.2); Alkaline Phosphatase 98 U/L (40-130); Aspartate Amino Transferase 14 U/L (0-40); Blood Urea Nitrogen 15 mg/dL (8-23); Calcium 9.8 mg/dL (8.5-10.5); Carbon Dioxide 24 mmol/L (22-29); Chloride 101 mmol/L (98-107); Globulin 2.7 g/dL (1.3-4.6); Glomerular Filtration Rate 76.2 mL/min (90-130); Glucose 151 mg/dL (65-115); Osmolality Calculated 288 mOsm/kg (285-295); Sodium 137 mmol/L (136-145); Thyroid Stimulating Hormone 0.81 uIU/mL (0.27-4.20); Total Bilirubin 0.7 mg/dL (0.15-1.2)
[2023-11-22] MEDS: pembrolizumab 200 MG in sodium chloride 0.9% 250 ML 516 MG IV (09:44)
== END 2023-11-22 23:59 | disposition home or self-care (01) ==
PROVIDERS: PCP Family Medicine; Visit Provider Nurse Practitioner Family
DX: C64.1 Malignant neoplasm of right kidney, except renal pelvis; Z51.11 Encounter for antineoplastic chemotherapy
CPT/HCPCS: 80053; 84443; 85025; 96413; A4222; J7050; J9271

== ENCOUNTER 2023-12-13 07:28 | Oncology outpatient (recurring) (ONCR) | payer OTHER, SELFPAY ==
[2023-12-13 08:04] VITALS: BP 139/79; PULSE 64; O2SAT 96
[2023-12-13 08:06] LABS: Basophils % 0.5 %; Eosinophils # 0.1 10^3/uL (0.0-0.8); Eosinophils % 0.6 %; Hematocrit 45.4 % (37-53); Lymphocytes # 1.1 10^3/uL (0.8-4.8); Lymphocytes % 12.4 %; Mean Corpuscular HGB Conc 34.4 g/dL (30-55); Mean Corpuscular Hemoglobin 30.7 pg (27-33); Mean Corpuscular Volume 89.4 fl (82-101); Mean Platelet Volume 8.9 fL (7.4-10.4); Monocytes # 0.5 10^3/uL (0.2-0.9); Neutrophils # 6.76 10^3/uL (1.8-7.7); Neutrophils % 79.9 %; Nucleated Red Blood Cells % 0 %; Platelet Count 269 10^3/cmm (157-399); Red Blood Count 5.08 10^6/uL (3.85-5.65); Red Cell Distribution Width 14.4 % (12.1-15.1); White Blood Count 8.46 10^3/uL (3.29-11.43)
[2023-12-13 08:39] LABS: Alanine Aminotransferase 19 U/L (0-41); Albumin Level 4.2 g/dL (3.5-5.2); Alkaline Phosphatase 91 U/L (40-130); Anion Gap 14.9 (5-19); Aspartate Amino Transferase 15 U/L (0-40); Blood Urea Nitrogen 14 mg/dL (8-23); Calcium 9.8 mg/dL (8.5-10.5); Carbon Dioxide 23 mmol/L (22-29); Chloride 101 mmol/L (98-107); Globulin 2.9 g/dL (1.3-4.6); Glomerular Filtration Rate 68.3 mL/min (90-130); Glucose 151 mg/dL (65-115); Osmolality Calculated 283 mOsm/kg (285-295); Potassium 3.9 mmol/L (3.5-5.1); Sodium 135 mmol/L (136-145); Thyroid Stimulating Hormone 0.84 uIU/mL (0.27-4.20); Total Bilirubin 0.7 mg/dL (0.15-1.2); Total Protein 7.1 g/dL (6.6-8.7)
[2023-12-13] MEDS: pembrolizumab 200 MG in sodium chloride 0.9% 250 ML 516 MG IV (09:30)
[2023-12-13 10:08] VITALS: BP 130/77; PULSE 67; RESP 18; TEMP 36.7; O2SAT 97
== END 2023-12-13 23:59 | disposition home or self-care (01) ==
LOC: ONCMED 07:29
PROVIDERS: PCP Family Medicine; Visit Provider Nurse Practitioner Family
DX: Z51.12 Encounter for antineoplastic immunotherapy (principal); C64.1 Malignant neoplasm of right kidney, except renal pelvis
CPT/HCPCS: 80053; 84443; 85025; 96413; J7050; J9271

== ENCOUNTER 2023-12-13 13:53 | Outpatient (CLI) | payer OTHER, SELFPAY ==
[2023-12-13] MEDS: gadobenate dimeglumine 20 mL vial IV (14:35)
== END 2023-12-13 13:54 | disposition home or self-care (01) ==
LOC: RAD 13:53
PROVIDERS: PCP Family Medicine; Visit Provider Family Medicine
DX: G93.89 Other specified disorders of brain (principal)
CPT/HCPCS: 70552; A9577

== ENCOUNTER 2024-01-03 07:30 | Oncology outpatient (recurring) (ONCR) | payer OTHER, SELFPAY ==
[2024-01-03 07:55] LABS: Basophils # 0.1 10^3/uL (0.0-0.1); Basophils % 0.6 %; Eosinophils # 0.1 10^3/uL (0.0-0.8); Eosinophils % 0.6 %; Hematocrit 43.9 % (37-53); Lymphocytes # 1.3 10^3/uL (0.8-4.8); Lymphocytes % 12.4 %; Mean Corpuscular HGB Conc 34.2 g/dL (30-55); Mean Corpuscular Hemoglobin 30.3 pg (27-33); Mean Corpuscular Volume 88.7 fl (82-101); Monocytes # 0.7 10^3/uL (0.2-0.9); Monocytes % 6.2 %; Neutrophils % 79.7 %; Nucleated Red Blood Cells % 0 %; Platelet Count 260 10^3/cmm (157-399); Red Blood Count 4.95 10^6/uL (3.85-5.65); Red Cell Distribution Width 14.3 % (12.1-15.1); White Blood Count 10.53 10^3/uL (3.29-11.43)
[2024-01-03 08:21] LABS: Alanine Aminotransferase 19 U/L (0-41); Albumin Level 4.3 g/dL (3.5-5.2); Alkaline Phosphatase 100 U/L (40-130); Aspartate Amino Transferase 13 U/L (0-40); Blood Urea Nitrogen 18 mg/dL (8-23); Carbon Dioxide 23 mmol/L (22-29); Chloride 101 mmol/L (98-107); Creatinine Clr Calc Pharmacy 110.2607; Globulin 2.7 g/dL (1.3-4.6); Glomerular Filtration Rate 61.8 mL/min (90-130); Glucose 165 mg/dL (65-115); Osmolality Calculated 290 mOsm/kg (285-295); Sodium 137 mmol/L (136-145); Thyroid Stimulating Hormone 1.16 uIU/mL (0.27-4.20); Total Bilirubin 0.8 mg/dL (0.15-1.2)
[2024-01-03] MEDS: pembrolizumab 200 MG in sodium chloride 0.9% 250 ML 516 MG IV (09:35)
[2024-01-03 10:27] VITALS: BP 129/82; PULSE 78; RESP 18; TEMP 36.4; O2SAT 95
== END 2024-01-03 23:59 | disposition home or self-care (01) ==
PROVIDERS: PCP Family Medicine; Visit Provider Nurse Practitioner Family
DX: Z51.12 Encounter for antineoplastic immunotherapy (principal); C64.1 Malignant neoplasm of right kidney, except renal pelvis; Z53.9 Procedure and treatment not carried out, unspecified reason
CPT/HCPCS: 80053; 84443; 85025; 96413; A4222; J7050; J9271

== ENCOUNTER 2024-01-20 15:40 | Outpatient (CLI) | payer OTHER, SELFPAY ==
--- NOTE | 2024-01-20 16:30 | CT_ITS ---
WS: [email or web address] CT CHEST, ABDOMEN AND PELVIS WITH CONTRAST HISTORY: Follow-up kidney cancer. TECHNIQUE: Contiguous 5 mm axial imaging performed through the chest, abdomen and pelvis IV contrast, oral contrast has been provided. Coronal and sagittal reformats chest. Coronal and sagittal reformat s through the abdomen and pelvis. All CT scans at [facility] use at least one of these dose o ptimization techniques: automated exposure control; mA and/or kV adjustment per patient size (include s targeted exams where dose is matched to clinical indication); or iterative reconstruction. CONTRAST: Omnipaque 350; 100 mL IV. DLP: 2300.84 mGy.cm COMPARISON: 08/23/[address]: No suspicious masses. There are a few scattered granulomata throughout the lungs. Subsegmen mitzi areas of atelectasis at the lingula and lung bases. No areas of consolidation. No new mass or nod ule. Normal size aorta. Mild coronary artery calcifications. Normal size heart. No pericardial or ple ural effusions. No mediastinal or hilar adenopathy. No supraclavicular lymph nodes. Abdomen CT: Hepatic steatosis. Hepatomegaly. Gallbladder is present and slightly contracted. No adjac ent inflammation. Enlarged spleen at 17.1 cm. No adrenal mass. Normal pancreas. Prior RIGHT nephrectomy. No recurrent mass in the renal bed. Again noted is the small complex possibl e fluid collection along the RIGHT psoas muscle and the inferior RIGHT lobe of the liver which is pro bably postoperative in etiology measuring 4.3 x 2.6 cm. Not significantly changed but not improved. N ormal size LEFT kidney. Reidentified is the 1.5 cm indeterminate mass in the posterior kidney which h as been previously described without increase since 08/23/2023. Mild atherosclerosis aorta. No ascites. No new or increasing lymph nodes. Large RIGHT lateral abdominal wall hernia. This hernia contains omentum and small bowel. The remaining abdominal wall is thinned. No GI tract obstruction. N o appendicitis. Pelvic CT: No free fluid or adenopathy. Nondistended urinary bladder. Mild prostate gland enlargement . Mild degenerative changes throughout the thoracic and lumbar spines. No destructive bone process. CT/CT chest abdpel w/*[id number] IMPRESSION: 1. No pulmonary mass or nodule. No adenopathy. 2. Reidentified is a small complex collection associated with the RIGHT psoas muscle and the inferior lobe of the liver near the renal bed. This collection m easures 4.3 x 2.6 cm and has not significantly improved although not significan tly increased since 08/23/2023. Recommend continued close follow-up. Differenti al includes postsurgical changes from the nephrectomy. Thought to be less likel y metastatic disease without increase in size since 08/23/2023. Recommend follo w-up CT in 6 months. 3. Status post RIGHT nephrectomy. 4. No change in the indeterminate 1.5 cm mass in the mid LEFT kidney for which continued follow-up is recommended. 5. Large RIGHT lateral abdominal wall hernia containing omentum and small maikel l with no obstruction. 6. No ascites or adenopathy.
[2024-01-20] MEDS: iohexol 300 mg/mL 100 mL Btl IV (16:46)
[2024-01-20] MEDS: iohexol 300 mg/mL 100 mL Btl PO (16:46)
== END 2024-01-20 15:41 | disposition home or self-care (01) ==
LOC: RAD 15:41
PROVIDERS: PCP Family Medicine; Visit Provider Nurse Practitioner Family
DX: C64.1 Malignant neoplasm of right kidney, except renal pelvis (principal); K43.9 Ventral hernia without obstruction or gangrene; J98.11 Atelectasis; K76.0 Fatty (change of) liver, not elsewhere classified; Z90.5 Acquired absence of kidney; R16.2 Hepatomegaly with splenomegaly, not elsewhere classified
CPT/HCPCS: 71260; 74177; Q9967

== ENCOUNTER 2024-02-13 08:44 | Oncology outpatient (recurring) (ONCR) | payer OTHER, SELFPAY ==
[2024-02-13 10:30] LABS: Basophils % 0.4 %; Eosinophils % 0.4 %; Hematocrit 42.9 % (37-53); Lymphocytes # 1.6 10^3/uL (0.8-4.8); Lymphocytes % 15.6 %; Mean Corpuscular HGB Conc 33.6 g/dL (30-55); Mean Corpuscular Hemoglobin 30.4 pg (27-33); Mean Corpuscular Volume 90.7 fl (82-101); Mean Platelet Volume 8.7 fL (7.4-10.4); Monocytes # 0.8 10^3/uL (0.2-0.9); Monocytes % 7.7 %; Neutrophils # 7.65 10^3/uL (1.8-7.7); Nucleated Red Blood Cells % 0 %; Platelet Count 231 10^3/cmm (157-399); Red Blood Count 4.73 10^6/uL (3.85-5.65); Red Cell Distribution Width 14.3 % (12.1-15.1); White Blood Count 10.19 10^3/uL (3.29-11.43)
[2024-02-13 10:52] LABS: Alanine Aminotransferase 35 U/L (0-41); Albumin Level 4.1 g/dL (3.5-5.2); Alkaline Phosphatase 103 U/L (40-130); Anion Gap 15.8 (5-19); Aspartate Amino Transferase 17 U/L (0-40); Blood Urea Nitrogen 20 mg/dL (8-23); Calcium 9.4 mg/dL (8.5-10.5); Carbon Dioxide 26 mmol/L (22-29); Chloride 100 mmol/L (98-107); Globulin 2.8 g/dL (1.3-4.6); Glomerular Filtration Rate 68.3 mL/min (90-130); Glucose 122 mg/dL (65-115); Osmolality Calculated 290 mOsm/kg (285-295); Potassium 3.8 mmol/L (3.5-5.1); Sodium 138 mmol/L (136-145); Total Protein 6.9 g/dL (6.6-8.7)
== END 2024-03-01 23:59 | disposition home or self-care (01) ==
PROVIDERS: PCP Family Medicine; Visit Provider Nurse Practitioner Family
DX: C64.1 Malignant neoplasm of right kidney, except renal pelvis (principal)
CPT/HCPCS: 36415; 80053; 85025

== ENCOUNTER → 2024-03-13 09:34 | Outpatient (BNVA) | payer OTHER, SELFPAY | PROVIDERS: PCP Family Medicine; Visit Provider Clinical Nurse Specialist Adult Health | DX: R30.0 Dysuria (principal); R31.9 Hematuria, unspecified | CPT/HCPCS: 81000; 87086 ==

== ENCOUNTER 2024-03-23 07:58 | Oncology outpatient (recurring) (ONCR) | payer OTHER, SELFPAY ==
--- NOTE | 2024-03-23 10:51 | N.ONRAD NP_ITS ---
Radiation Oncology New Patient Visit Patient: Bk Almaraz MR#: [id number] : 1965 Age: 58 Sex: Male Dictated by: Dr. 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 Chief Complaint / History of Present Illness: Patient reports how initially last spring he actually had headaches on the right side of his head. He had these every day. He said he was using Tylenol like it was candy. He was diagnosed in the summer with a renal cell carcinoma. This was located in the right kidney and in April he underwent surgery for this with a nephrectomy. It was found to be a stage T3 N0 grade 3. It was then recommended that he receive a years worth of immunotherapy. He had received 11 out of 16 courses of the immunotherapy when during the course of workup for his neck he was found to have a solitary brain lesion. He underwent surgery for this on January 29, 2024. It was found to be metastatic disease. He did had additional scans which have not shown any other areas of metastatic disease. He is here today to discuss postop radiation for solitary brain metastasis which has been resected. Current Medications: albuterol sulfate 90 mcg/actuation (ProAir HFA) 2 puffs inhalation Q6H PRN blood sugar diagnostic (OneTouch Ultra Test strips) As directed - test glucose daily blood-glucose meter (OneTouch Ultra2 Meter) As directed budesonide-formoterol 160-4.5 mcg/actuation (Symbicort) 2 puffs inhalation BID cetirizine 10 mg PO DAILY PRN dexamethasone 2 mg PO DAILY furosemide 40 mg PO DAILY hydrochlorothiazide 25 mg PO DAILY hydrocodone-acetaminophen 5-325 mg 1 tab PO Q8H PRN lansoprazole (Prevacid) 30 mg PO DAILY levetiracetam (Keppra) 500 mg PO BID potassium chloride ER 20 mEq PO BID PRN prochlorperazine maleate (Compazine) 10 mg PO Q4H PRN terazosin 10 mg PO Allergies: No Known Allergies Allergy Medical History: No history of collagen vascular disease. No previous radiation therapy. Clear cell carcinoma of right kidney Bacteremia due to group B Streptococcus Cellulitis GERD (gastroesophageal reflux disease) Hypertension Erectile dysfunction Surgical History: Hx of brain surgery Family History: Father , AT AGE 84 Hypertension Lung disease Mother , at age 84 Lung disease Congestive heart failure (CHF) Social History: Smoking and tobacco/nicotine status: former use of tobacco/nicotine Quit status (tobacco/nicotine): has quit using Year quit tobacco: 2014 Former quit date comment: Smoked for 40 years. 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 Vital Signs: Performed on 03/23/2024 8:27 AM BMI - 56.598 kg/m2 (high), Height - 71 in, Weight - 405.8 lbs, Temperature - 97.6 f, Pulse - 76 /min, Respiration - 20 /min, O2 Sat - 99 %, Pain - 0, Fatigue - 0 and BP - 150/ 80 mm(hg)(high/). Physical Exam: General patient is a pleasant 57-year-old gentleman in no apparent distress HEENT: Normocephalic atraumatic. Pupils are equal, sclera clear, extraocular muscles intact. The incision is nicely healed with no signs of erythema or drainage Pulmonary: Respiratory rate is regular nonlabored Cardiovascular: Regular rate and rhythm Abdomen: Patient is morbidly obese Neurological: Patient has a tremor of his head, he is alert and orient x 3. His gait and speech are within normal limits Performance Status: 80 Pathology: Clear-cell carcinoma of the kidney Lab: Imaging: See HPI Impression: Stage IV kidney cancer with a solitary brain metastasis status post resection Plan: I reviewed with the patient the recommendations in regards to brain metastasis after resection. We talked about a stereotactic course of treatment which would only be 4 treatments and which would decrease the risk of recurrence. We talked about the planning process. We reviewed the daily treatment regiment. We discussed the risks and 5 side effects both acute and long-term. This point all of his questions were answered. I did offer him observation as well. After some discussion he has agreed to proceed with treatment. He will return later today to undergo simulation. Will start his treatments when his planning is approved. Signed by: 03/23/2024 10:49:28 AM <<Signature on File>> Time spent with [id number]: CPT Code: CPT Code:
== END 2024-04-01 23:59 | disposition home or self-care (01) ==
PROVIDERS: PCP Family Medicine; Visit Provider Nurse Practitioner Family
DX: Z51.0 Encounter for antineoplastic radiation therapy (principal); C79.31 Secondary malignant neoplasm of brain; C64.1 Malignant neoplasm of right kidney, except renal pelvis
CPT/HCPCS: 77300; 77301; 77334; 77338; 77470

== ENCOUNTER 2024-04-16 12:39 | Oncology outpatient (recurring) (ONCR) | payer SELFPAY ==
--- NOTE | 2024-04-16 13:30 | N.ONRD TS_ITS ---
Radiation Oncology Treatment Summary Patient: Bk Almaraz MR#: [id number] : 1965 Age: 58 Sex: Male Dictated by: Dr. Sherrill Huddleston Date of Service: 04/16/2024 Referring Physician(s) : Diagnosis: C64.1 - Malignant neoplasm of right kidney, except renal pelvis, Diagnosed 03/23/2024 (Active) C79.31 - Secondary malignant neoplasm of brain, Diagnosed 03/23/2024 (Active) Radiotherapy to Date: Course: R brain met, Treatment Site: RFrontalBrainMet, Ref. ID: [id number], Energy: 6X, Dose/Fx (cGy): 800, #Fx: 4 / 4, Dose Correction (cGy): 0, Total Dose Delivered (cGy): 3,200, Start Date: 04/13/2024, End Date: 04/16/2024, Elapsed Days: 3 Clinical Summary: The patient tolerated RT well. He had no ill effects from the treatment. Plan: End of treatment today. Continue on the above medication until the skin reaction resolves. Follow up in one month. Signed by: Dr. Sherrill Huddleston>04/16/2024 1:29:11 PM <<Signature on File>>
== END 2024-04-16 23:59 | disposition home or self-care (01) ==
PROVIDERS: PCP Family Medicine; Visit Provider Radiology Radiation Oncology
DX: Z51.0 Encounter for antineoplastic radiation therapy (principal); C79.31 Secondary malignant neoplasm of brain; C64.1 Malignant neoplasm of right kidney, except renal pelvis; Z51.12 Encounter for antineoplastic immunotherapy; G25.9 Extrapyramidal and movement disorder, unspecified; Z79.899 Other long term (current) drug therapy
CPT/HCPCS: 77336; 77373; 99024

== ENCOUNTER → 2024-04-17 09:00 | Outpatient (BNVA) | payer OTHER, SELFPAY | PROVIDERS: PCP Family Medicine; Visit Provider Family Medicine | DX: M19.011 Primary osteoarthritis, right shoulder (principal); M19.012 Primary osteoarthritis, left shoulder; M17.0 Bilateral primary osteoarthritis of knee; S83.192A Other subluxation of left knee, initial encounter; X58.XXXA Exposure to other specified factors, initial encounter | CPT/HCPCS: 73030; 73562 ==

== ENCOUNTER 2024-04-17 12:57 | Outpatient (CLI) | payer OTHER, SELFPAY ==
--- NOTE | 2024-04-17 13:20 | XR_ITS ---
WS: [id number] Examination: XR shoulder RT min 2V* [id number] Reason for Exam: Right shoulder pain Date: April 17, 2024 Comparison: None. Findings: The bone density is maintained. There is no destruction There is no displaced fracture or dislocation AC joint degenerative changes with spurring is identified. Calcification above the humeral head is no nicko which may be related to calcific tendinitis. XR/XR shoulder RT min 2V* [id number] Impression: There is no acute bony abnormality of the right shoulder. Chronic changes are present.
== END 2024-04-17 12:58 | disposition home or self-care (01) ==
LOC: RAD 12:59
PROVIDERS: PCP Family Medicine; Visit Provider Family Medicine
DX: M25.511 Pain in right shoulder (principal)
CPT/HCPCS: 73030

== ENCOUNTER 2024-04-20 09:34 | Oncology outpatient (recurring) (ONCR) | payer SELFPAY ==
[2024-04-20 09:59] LABS: Basophils # 0.1 10^3/uL (0.0-0.1); Eosinophils # 0.1 10^3/uL (0.0-0.8); Eosinophils % 1.4 %; Hematocrit 43.2 % (37-53); Lymphocytes # 1.7 10^3/uL (0.8-4.8); Lymphocytes % 17.9 %; Mean Corpuscular HGB Conc 34.5 g/dL (30-55); Mean Corpuscular Hemoglobin 30.3 pg (27-33); Mean Platelet Volume 8.6 fL (7.4-10.4); Monocytes # 0.7 10^3/uL (0.2-0.9); Neutrophils # 6.65 10^3/uL (1.8-7.7); Neutrophils % 70.9 %; Nucleated Red Blood Cells % 0 %; Platelet Count 307 10^3/cmm (157-399); Red Blood Count 4.91 10^6/uL (3.85-5.65); Red Cell Distribution Width 13.5 % (12.1-15.1); White Blood Count 9.38 10^3/uL (3.29-11.43)
[2024-04-20 10:15] LABS: Alanine Aminotransferase 14 U/L (0-41); Alkaline Phosphatase 106 U/L (40-130); Anion Gap 16.9 (5-19); Aspartate Amino Transferase 20 U/L (0-40); Blood Urea Nitrogen 15 mg/dL (8-23); Calcium 9.7 mg/dL (8.5-10.5); Carbon Dioxide 24 mmol/L (22-29); Chloride 102 mmol/L (98-107); Globulin 2.8 g/dL (1.3-4.6); Glomerular Filtration Rate 76.2 mL/min (90-130); Glucose 138 mg/dL (65-115); Osmolality Calculated 291 mOsm/kg (285-295); Potassium 3.9 mmol/L (3.5-5.1); Sodium 139 mmol/L (136-145); Total Bilirubin 0.5 mg/dL (0.15-1.2); Total Protein 6.8 g/dL (6.6-8.7)
== END 2024-05-02 23:59 | disposition home or self-care (01) ==
PROVIDERS: Internal Medicine Medical Oncology; PCP Family Medicine; Visit Provider Radiology Radiation Oncology
DX: C79.31 Secondary malignant neoplasm of brain; C64.1 Malignant neoplasm of right kidney, except renal pelvis
CPT/HCPCS: 36415; 80053; 85025

== ENCOUNTER → 2024-05-01 09:24 | Outpatient (BNVA) | payer SELFPAY | PROVIDERS: PCP Family Medicine; Visit Provider Family Medicine | DX: Z13.220 Encounter for screening for lipoid disorders (principal); E11.9 Type 2 diabetes mellitus without complications | CPT/HCPCS: 80061; 83036 ==

== ENCOUNTER 2024-07-17 10:16 | Oncology outpatient (recurring) (ONCR) | payer OTHER, SELFPAY ==
--- NOTE | 2024-07-17 10:30 | CT_ITS ---
WS: [id number] CT ABDOMEN AND PELVIS WITH CONTRAST HISTORY: Renal cancer - 6 month follow up TECHNIQUE: Imaging performed of the abdomen and pelvis with IV contrast. Single phase imaging of the abdomen. Coronal and sagittal reformats are submitted. All CT scans at [facility] use at [facility] one of these dose optimization techniques: automated exposure control; mA and/or kV adjustment per patient size (includes targeted exams where dose is matched to clinical indication); or iterative re construction. IV CONTRAST: Omnipaque 350; 100 mL IV. Oral contrast: No DLP: 1451.01 mGy.cm COMPARISON: 01/20/2024 Lower thorax: Lung bases are clear. There are a few tiny granulomata. No mass. Heart is normal size. No hiatal hernia. Liver/biliary system: Moderate hepatomegaly with hepatic steatosis. No mass. Normal portal vein. Gallbladder: Normal. No gallstones or wall thickening. No pericholecystic fluid. Pancreas: Normal size pancreas and pancreatic duct. No adjacent inflammation. Spleen: Spleen continues to be enlarged at 17.7 cm in length as previously described. Adrenal glands: Normal. Right kidney: Status post RIGHT nephrectomy. No recurrent mass in the renal bed. There is a postopera tive collection contiguous with the RIGHT psoas muscle extending towards the most inferior RIGHT lobe of the liver. Collection measures 3.5 x 3.0 and is slightly decreased in size. No progression. No ad enopathy. Left kidney: Normal. Previously described low-attenuation lesion in the LEFT kidney is not identified on today's study which may be due to a patient's body habitus. Aorta: Mild atherosclerosis with no aneurysm. Lymphadenopathy: None. Free fluid: None. GI tract: No obstruction. Normal appendix. There is a large RIGHT Spigelian hernia containing small b owel. No obstruction. Abdominal wall: Unremarkable abdominal wall. No hernia. Pelvis: No free fluid or adenopathy within the pelvis. Urinary bladder is well distended. No free flu id or adenopathy. Bones: Mild degenerative a shaped curvature of the thoracic and lumbar spines. CT/CT abdomen pelvis w con* [id number] IMPRESSION: 1. Status post RIGHT nephrectomy. No recurrent mass in the renal bed. 2. Slight decrease in size of the postoperative collection contiguous with the RIGHT psoas muscle to the inferior lobe of the liver. No adverse findings. 3. Negative LEFT kidney. Previously described hypodense focus is not identifie d today. This is probably due to patient's body habitus. 4. Large RIGHT spigelian hernia contains small bowel but no obstruction. 5. Continued moderate splenomegaly.
[2024-07-17 10:42] LABS: Blood Urea Nitrogen 15 mg/dL (8-23); Glomerular Filtration Rate 61.8 mL/min (90-130)
[2024-07-17] MEDS: iohexol 350 mg/mL 500 mL Btl (per mL) IV (10:57)
== END 2024-08-01 23:59 | disposition home or self-care (01) ==
LOC: RAD 10:16 → ONCMED 07-20 11:10
PROVIDERS: PCP Family Medicine; Visit Provider Family Medicine
DX: C64.1 Malignant neoplasm of right kidney, except renal pelvis (principal); Z90.5 Acquired absence of kidney; K43.9 Ventral hernia without obstruction or gangrene
CPT/HCPCS: 74177; 82565; 84520

== ENCOUNTER → 2024-08-24 10:31 | Outpatient (BNVA) | payer OTHER, SELFPAY | PROVIDERS: PCP Family Medicine; Visit Provider Family Medicine | DX: Z51.81 Encounter for therapeutic drug level monitoring (principal); E11.9 Type 2 diabetes mellitus without complications; R35.0 Frequency of micturition; E55.9 Vitamin D deficiency, unspecified | CPT/HCPCS: 80053; 82306; 83036; 84153; 85025 ==

== ENCOUNTER 2024-10-05 09:41 | Oncology outpatient (recurring) (ONCR) | payer OTHER, SELFPAY ==
--- NOTE | 2024-10-05 15:25 | US_ITS ---
WS: [id number] TESTICULAR ULTRASOUND HISTORY: Rt Testicular Pain COMPARISON: CT 07/17/2024 TECHNIQUE: Real-time and color Doppler imaging or utilized to perform a testicular ultrasound. Right testicle: 4.7 cm x 3.4 cm x 3.6 cm. Normal size testicle with mild coarse echotexture. Mild diffuse, increased vascularity within the RIGHT testicle. No mass identified. Small simple hydrocele. Right epididymis: Heterogeneous epididymis. Mild increased vascularity. Left testicle: 3.9 cm x 2.8 cm x 2.7 cm. Normal size and echogenicity. No mass or torsion. Normal color Doppler is present throughout. Systolic and diastolic velocities are both present. Small complex hydrocele. Left epididymis: Normal epididymis with no increased vascularity. US/US scrotum [id number] IMPRESSION: 1. Mild RIGHT epididymal orchitis. No mass or torsion. 2. Small bilateral hydroceles.
== END 2024-10-30 23:59 | disposition home or self-care (01) ==
PROVIDERS: PCP Family Medicine; Visit Provider Family Medicine
DX: N50.811 Right testicular pain (principal); N43.3 Hydrocele, unspecified; N45.2 Orchitis
CPT/HCPCS: 76870

== ENCOUNTER 2024-11-16 08:03 | Oncology outpatient (recurring) (ONCR) | payer OTHER, SELFPAY ==
[2024-11-16 08:40] LABS: Basophils % 0.4 %; Eosinophils # 0.1 10^3/uL (0.0-0.8); Eosinophils % 1.4 %; Hematocrit 46.1 % (37-53); Lymphocytes # 2.2 10^3/uL (0.8-4.8); Mean Corpuscular HGB Conc 33.6 g/dL (30-55); Mean Corpuscular Hemoglobin 29.1 pg (27-33); Mean Corpuscular Volume 86.7 fl (82-101); Mean Platelet Volume 9.1 fL (7.4-10.4); Monocytes % 9.9 %; Neutrophils # 6.48 10^3/uL (1.8-7.7); Neutrophils % 65.6 %; Nucleated Red Blood Cells % 0 %; Platelet Count 264 10^3/cmm (157-399); Red Blood Count 5.32 10^6/uL (3.85-5.65); Red Cell Distribution Width 14.2 % (12.1-15.1); White Blood Count 9.88 10^3/uL (3.29-11.43)
[2024-11-16 08:53] LABS: Alanine Aminotransferase 20 U/L (0-41); Albumin Level 4.1 g/dL (3.5-5.2); Alkaline Phosphatase 110 U/L (40-130); Anion Gap 14.6 (5-19); Aspartate Amino Transferase 14 U/L (0-40); Blood Urea Nitrogen 22 mg/dL (8-23); Calcium 9.7 mg/dL (8.5-10.5); Carbon Dioxide 27 mmol/L (22-29); Chloride 102 mmol/L (98-107); Globulin 2.5 g/dL (1.3-4.6); Glomerular Filtration Rate 61.6 mL/min (90-130); Glucose 117 mg/dL (65-115); Osmolality Calculated 294 mOsm/kg (285-295); Potassium 3.6 mmol/L (3.5-5.1); Sodium 140 mmol/L (136-145); Total Bilirubin 0.7 mg/dL (0.15-1.2); Total Protein 6.6 g/dL (6.6-8.7)
== END 2024-11-30 23:59 | disposition home or self-care (01) ==
PROVIDERS: Internal Medicine Medical Oncology; PCP Family Medicine; Visit Provider Family Medicine
DX: N28.89 Other specified disorders of kidney and ureter (principal)
CPT/HCPCS: 36415; 80053; 85025

== ENCOUNTER 2024-11-20 08:21 | Oncology outpatient (recurring) (ONCR) | payer OTHER, SELFPAY ==
--- NOTE | 2024-11-20 09:15 | CTR_ITS ---
PROCEDURE INFORMATION: Exam: CT Chest With Contrast; Diagnostic Exam date and time: 11/20/2024 9:22 AM Age: 59 years old Clinical indication: Condition or disease; Other: Renal mass; Primary cancer: Right kidney; Prior surgery; Surgery date: 6+ months; Surgery type: Right nephrectomy apr 2023; Additional info: Renal Dr. Julian little would like this done no later than 11/10/24 TECHNIQUE: Imaging protocol: Diagnostic computed tomography of the chest with contrast. Radiation optimization: All CT scans at this facility use at least one of these dose optimization techniques: automated exposure control; mA and/or kV adjustment per patient size (includes targeted exams where dose is matched to clinical indication); or iterative reconstruction. Contrast material: OMNI 350; Contrast volume: 100 ml; Contrast route: INTRAVENOUS (IV); COMPARISON: CT chest abdpel w/*[id number] 01/20/2024 4:37 PM RADIATION DOSE METRICS: Total DLP (mGy-cm): 1957.48 FINDINGS: Lungs: Unremarkable. No consolidation. No masses. Pleural spaces: Unremarkable. No pneumothorax. No pleural effusion. Heart: Unremarkable. No cardiomegaly. No pericardial effusion. Coronary arteries: Coronary artery calcifications. Lymph nodes: Unremarkable. No enlarged lymph nodes. Vasculature: Unremarkable. No aortic aneurysm. Bones/joints: Unremarkable. No acute fracture. Soft tissues: Unremarkable. PROCEDURE INFORMATION: Exam: CT Abdomen And Pelvis With Contrast Exam date and time: 11/20/2024 9:22 AM Age: 59 years old Clinical indication: Condition or disease; Other: Renal mass; Primary cancer: Right kidney; Prior surgery; Surgery date: 6+ months; Surgery type: Right nephrectomy apr 2023; Additional info: Dr. Julian Onofre would like this done no later than 11/10/24 TECHNIQUE: Imaging protocol: Computed tomography of the abdomen and pelvis with contrast. Radiation optimization: All CT scans at this facility use at least one of these dose optimization techniques: automated exposure control; mA and/or kV adjustment per patient size (includes targeted exams where dose is matched to clinical indication); or iterative reconstruction. Contrast material: OMNI 350; Contrast volume: 100 ml; Contrast route: INTRAVENOUS (IV); COMPARISON: CT abdomen pelvis w con* [id number] 07/17/2024 10:41 AM RADIATION DOSE METRICS: Total DLP (mGy-cm): 1958.48 FINDINGS: Liver: Hepatic steatosis. Gallbladder and biliary ducts: Normal. No calcified stones. No ductal dilation. Pancreas: Normal. No ductal dilation. Spleen: Normal. No splenomegaly. Adrenal glands: Normal. No mass. Kidneys and ureters: Right nephrectomy. Stomach and bowel: Unremarkable. No obstruction. No mucosal thickening. Appendix: No evidence of appendicitis. Intraperitoneal space: Unremarkable. No free air. No significant fluid collection. Vasculature: Unremarkable. No abdominal aortic aneurysm. Lymph nodes: Unremarkable. No enlarged lymph nodes. Urinary bladder: Unremarkable as visualized. Reproductive: Unremarkable as visualized. Bones/joints: Unremarkable. No acute fracture. Soft tissues: Large right mid abdominal wall hernia containing fat and several loops of bowel. No evidence of incarceration or strangulation. CT/CT chest abdpel w/*[id number] IMPRESSION: No acute findings. IMPRESSION: 1. Right abdominal wall hernia. 2. Splenomegaly. 3. Abdominal wall hernia.
[2024-11-20] MEDS: iohexol 350 mg/mL 500 mL Btl (per mL) IV (09:32)
[2024-11-20] MEDS: iohexol 350 mg/mL 500 mL Btl (per mL) PO (09:32)
== END 2024-11-30 23:59 | disposition home or self-care (01) ==
LOC: RAD 08:21 → ONCMED 11-23 09:41
PROVIDERS: PCP Family Medicine; Visit Provider Internal Medicine Medical Oncology
DX: N28.89 Other specified disorders of kidney and ureter (principal); K43.9 Ventral hernia without obstruction or gangrene; R16.1 Splenomegaly, not elsewhere classified
CPT/HCPCS: 71260; 74177

== ENCOUNTER 2024-12-14 12:03 | Oncology outpatient (recurring) (ONCR) | payer OTHER, MEDICAID, SELFPAY ==
[2024-12-14 12:32] LABS: Basophils # 0.1 10^3/uL (0.0-0.1); Basophils % 0.8 %; Eosinophils # 0.1 10^3/uL (0.0-0.8); Eosinophils % 0.7 %; Hematocrit 43.4 % (37-53); Lymphocytes # 1.2 10^3/uL (0.8-4.8); Lymphocytes % 13.9 %; Mean Corpuscular HGB Conc 34.3 g/dL (30-55); Mean Corpuscular Hemoglobin 29.2 pg (27-33); Mean Corpuscular Volume 84.9 fl (82-101); Monocytes # 0.4 10^3/uL (0.2-0.9); Monocytes % 5.1 %; Neutrophils # 6.83 10^3/uL (1.8-7.7); Neutrophils % 78.9 %; Nucleated Red Blood Cells % 0 %; Platelet Count 251 10^3/cmm (157-399); Red Blood Count 5.11 10^6/uL (3.85-5.65); Red Cell Distribution Width 14.2 % (12.1-15.1); White Blood Count 8.65 10^3/uL (3.29-11.43)
[2024-12-14 12:55] LABS: Alanine Aminotransferase 22 U/L (0-41); Albumin Level 4.1 g/dL (3.5-5.2); Alkaline Phosphatase 105 U/L (40-130); Anion Gap 16.9 (5-19); Aspartate Amino Transferase 20 U/L (0-40); Blood Urea Nitrogen 16 mg/dL (8-23); Calcium 9.3 mg/dL (8.5-10.5); Carbon Dioxide 23 mmol/L (22-29); Chloride 99 mmol/L (98-107); Creatinine Clr Calc Pharmacy 106.2415; Globulin 2.6 g/dL (1.3-4.6); Glomerular Filtration Rate 61.6 mL/min (90-130); Glucose 182 mg/dL (65-115); Lactate Dehydrogenase 175 U/L (135-225); Osmolality Calculated 286 mOsm/kg (285-295); Potassium 3.9 mmol/L (3.5-5.1); Sodium 135 mmol/L (136-145); Total Bilirubin 0.7 mg/dL (0.15-1.2); Total Protein 6.7 g/dL (6.6-8.7)
== END 2024-12-30 23:59 | disposition home or self-care (01) ==
PROVIDERS: Nurse Practitioner Family; PCP Family Medicine; Visit Provider Family Medicine
DX: C79.31 Secondary malignant neoplasm of brain (principal); C64.9 Malignant neoplasm of unspecified kidney, except renal pelvis
CPT/HCPCS: 36415; 80053; 83615; 85025

== ENCOUNTER 2024-12-21 05:48 | Day surgery (SDC) | payer OTHER, MEDICAID, SELFPAY ==
[2024-12-21] VITALS (7 sets, daily range): BP systolic 84–119; BP diastolic 52–85; PULSE 62–87; RESP 17–22; TEMP 36.1–36.9; O2SAT 96–100; BMI 56.9
[2024-12-21] MEDS: gabapentin 300 mg Capsule PO (06:14)
[2024-12-21] MEDS: CELEcoxib 200 mg Capsule 400 MG PO (06:15)
[2024-12-21] MEDS: sodium chloride 0.9% 1,000 ML 30 ML IV (06:20)
--- NOTE | 2024-12-21 06:29 | ANES.PREANE2 ---
Pre-Anesthetic Assessment Height/Weight: Height 5 ft 10 in Weight 397 lb Temp Pulse Resp BP Pulse Ox O2 Del Method 97.3 F L 87 20 H 119/85 96 Room Air 12/21/24 06:04 12/21/24 06:04 12/21/24 06:04 12/21/24 06:04 12/21/24 06:04 12/21/24 06:25 Preop Diagnosis: Left hallux soft tissue mass Operation Date: 12/21/24 07:00 Proposed Procedures p Left foot soft tissue mass excision subfascial greater than 1.5 cm(Left) - Bk Grier DPM Was Beta Raven taken within 24 hours: N/A Was Clonidine taken within 24 hours: N/A Last intake: Intake Last Liquid Date 12/20/24 Last Liquid Time 21:00 Last Solid Date 12/20/24 Last Solid Time 13:00 Social No alcohol and No tobacco Quit smoking few years ago Exam alert, oriented x 3 and regular rate & rhythm Decreased breath sounds bilaterally Airway Submandibular: within normal limits Cervical ROM: Other (Limited ROM) Mallampati: Class III Comments: Comments: Baseline tremors Anesthetic Plan ASA status: 3 Anesthesia: MAC Other: No prior issues with anesthesia NPO since yesterday evening History of hypertension on hydrochlorothiazide Patient has chronic tremors, has been worked up for Parkinson's multiple times but this has been negative. On chronic prednisone 10 mg for chronic arthritis Prior renal cell carcinoma, s/p nephrectomy Labs reviewed and acceptable for procedure Prior EKG showing sinus tachycardia Will discuss with surgeon, possible MAC with local Medications/Allergies Home Medications ?Medication ?Instructions ?Recorded ?Confirmed ?Last Taken ?Type albuterol sulfate 90 mcg/actuation 2 puff inhalation Q6H PRN 05/03/20 12/17/24 12/07/24 History aerosol inhaler (ProAir HFA) Shortness Of Breath cetirizine 10 mg tablet (Zyrtec) 10 mg PO DAILY PRN Allergy Symptoms 05/22/23 12/17/24 12/20/24 History blood sugar diagnostic ([employer], IncTouch #100 ea 11/22/23 12/14/24 Unknown Rx Ultra Test strips) blood-glucose meter (OneTouch #1 ea 11/22/23 12/14/24 Unknown Rx Ultra2 Meter) budesonide-formoterol HFA 160 2 puff inhalation BID see pharmacy 04/13/24 12/17/24 12/21/24 05:20 Rx mcg-4.5 mcg/actuation aerosol comment #30.6 grams inhaler (Symbicort) hydrochlorothiazide 25 mg tablet 25 mg PO DAILY #90 tabs 04/13/24 12/17/24 12/20/24 Rx terazosin 10 mg capsule 10 mg PO DAILY #90 caps 04/13/24 12/17/24 12/20/24 Rx lansoprazole 30 mg capsule,delayed 30 mg PO DAILY 09/11/24 12/17/24 12/20/24 History release (Prevacid) prednisone 10 mg tablet 10 mg PO DAILY #30 tabs 11/03/24 12/17/24 12/20/24 Rx Allergies Allergy/AdvReac Type Severity Reaction Status Date / Time No Known Allergies Allergy Verified 12/14/24 12:06 Current Medications Generic Name Dose Route Start Last Admin Trade Name Freq PRN Reason Stop Dose Admin Sodium Chloride 1,000 mls @ 30 mls/hr 12/21/24 06:00 12/21/24 06:20 Sodium Chloride 0.9% IV 12/22/24 05:59 30 mls/hr .Q24H SHEYLA Administration PFSH Anesthesia Medical History Clear cell carcinoma of right kidney Bacteremia due to group B Streptococcus Cellulitis GERD (gastroesophageal reflux disease) Hypertension Erectile dysfunction Surgical History Hx of brain surgery mass in his brain removed from the parietal region on the right. 01/29/2024 - renal cell carcinoma History of nephrectomy, right Hx of tonsillectomy H/O arthroscopic knee surgery Family History Father , AT AGE 84 Hypertension Lung disease Mother , at age 84 Lung disease Congestive heart failure (CHF) Social History Smoking and tobacco/nicotine status: never used tobacco/nicotine Quit status (tobacco/nicotine): has quit using Year quit tobacco: 2014 Former quit date comment: Smoked for 40 years. 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
--- NOTE | 2024-12-21 06:48 | P.HPUD_ITS ---
Surgery/Procedure H&P Update DATE OF PROCEDURE: December 21, 2024 DATE H&P PERFORMED: 12/01/24 H&P UPDATE INFORMATION: I have reviewed H&P completed within last 30 days, I have examined patient prior to procedure, No changes to prior documentation, H&P is in [facility] EMR on date indicated and Risks and benefits of the procedure reviewed PREOP DIAGNOSIS: Left hallux soft tissue mass PLANNED PROCEDURE: Operation Date: 12/21/24 07:00 Proposed Procedures p Left foot soft tissue mass excision subfascial greater than 1.5 cm(Left) - Bk Grier DPM
[2024-12-21] MEDS: BUPivacaine 0.5% INJ 30 mL INJECTION (07:05)
[2024-12-21] MEDS: ceFAZolin 3,000 MG in sodium chloride 0.9% (100 ml) 100 ML 200 MG IV (07:15)
--- NOTE | 2024-12-21 07:44 | P.BOP_ITS ---
Date of procedure: 12/21/2024 Surgeon name: Dr. Bk Grier D.P.M. Industrial Service Technician(s) name(s): Donald Procedure(s) performed: Excision soft tissue mass left hallux Description of findings: Soft tissue mass left hallux deep fascia Estimated blood loss: 3 cc Tourniquet time: 16 minutes Specimen(s) removed: Soft tissue mass left hallux sent to pathology Post-operative diagnosis: Soft tissue mass left foot
--- NOTE | 2024-12-21 07:45 | P.OP_ITS ---
Operative Report Date of procedure: December 21, 2024 Surgeon: Bk Grier DPM Procedure: Date of procedure: 12/21/2024 Pre-op diagnosis: Soft tissue mass left hallux Post-op diagnosis: Same Post-op findings: Soft tissue mass left foot Procedure done: Soft tissue mass excision left foot CPT Implants: None Specimens removed: Soft tissue mass left foot Surgeon: Dr. Bk Grier DPM Licensed Nursing Assistant: Donald Estimated blood loss: 3 cc Tourniquet time: 16 minutes Complications: None Patient is a 59-year-old male that has a history of left hallux soft tissue mass. The patient has had the aforementioned chief complaint for some time. C onservative treatment measures have been attempted and the patient has opted for surgical intervention at this time. A lengthy discussion regarding the procedure, including risks and complications has been had with the patient and is noted in the recent clinic note. Written and verbal consent have been obtained. All patient questions have been answered to the patient?s satisfaction. No written or verbal guarantees have been given or implied. The patient has been NPO since midnight. The history has been reviewed and the history and physical is current. The signed consent was confirmed and placed in the patient chart. Patient imaging has been reviewed and is consistent with the diagnosis. Under mild sedation, the patient was brought into the operating room and placed on the table in the supine position. IV antibiotics were given by the anesthesia team as preoperative surgical prophylaxis. MAC sedation was then performed by the anesthesiateam. A pneumatic tourniquet was then placed about the left ankle. A local field block was performed using 0.5% Marcaine plain. The operative extremity was then prepped and draped in the usual fashion. The extremity was then elevated and exsanguinated before the tourniquet was inflated to 250 mmHg. After inflation, the following procedure was then performed. Attention was directed to the left foot where a large soft tissue mass on the dorsal aspect of the lateral left hallux was visualized. An elliptical incision was made using a #15 blade. Dissection was carried out circumferentially around the soft tissue mass using blunt dissection tenotomy scissors. The soft tissue mass was noted to extend down to the level of the extensor hallucis longus tendon. Small stalk was visualized. This was transected and cauterized with electrocautery. Soft tissue mass was passed from the operative field be sent a specimen. Soft tissue mass measured 3 cm circumferential spherical mass darkened discoloration with a dark yellowish-brownish hue. Indurated to palpation. No remaining mass was visualized in the left hallux. The site was irrigated with copious amounts of sterile saline before attention was directed to closure. Remaining tissue appeared healthy and viable. First metatarsal phalangeal joint capsule was intact. The skin was closed using 2-0 Prolene in retention suture type fashion. Tourniquet was let down and good hyperemic response was noted to all digits of the left foot. Incision site was dressed with Xeroform, 4 x 4 gauze, Kerlix, Jonatan. Patient was placed in a postop shoe The patient tolerated the procedure and anesthesia well and without complication. The patient was transported from the operating room to the recovery room with vital signs stable and vascular status intact to all digits of the left foot. The patient was given both written and verbal instructions to remain weightbearing as tolerated in postop shoe to the operative extremity, to keep dressings/splint clean, dry and intact and to take pain medication as directed. The patient will follow-up in the outpatient setting at their scheduled appointment. The patient was discharged with my personal number and was instructed to call if any questions or issues should arise. They were discharged home once anesthesia criteria was met.
[2024-12-21] MEDS: HYDROcodone-acetaminophen 5-325 mg Tablet 1 TAB PO (08:32)
--- NOTE | 2024-12-21 09:09 | ANE.PACU2 ---
Inpatient post-anesthesia follow up: Airway intact: Yes Vital signs: Temperature 97 F Pulse Rate 71 Respiratory Rate 20 Blood Pressure 113/65 Pulse Oximetry 98 Oxygen Delivery Me thod Room Air Oxygen Flow Rate 6 Fraction of Inspir ed Oxygen Hydration adequate: Yes Nausea and vomiting: No Pain level: 1 Mental status: Baseline
== END 2024-12-21 09:09 | disposition home or self-care (01) ==
PROVIDERS: PCP Family Medicine; Visit Provider Podiatrist Foot & Ankle Surgery
PROC: (CPT 28041; principal; 2024-12-21 07:00)
DX: D48.7 Neoplasm of uncertain behavior of other specified sites (principal); I10 Essential (primary) hypertension; R25.1 Tremor, unspecified; M19.90 Unspecified osteoarthritis, unspecified site; Z79.899 Other long term (current) drug therapy; Z85.89 Personal history of malignant neoplasm of other organs and systems; Z85.528 Personal history of other malignant neoplasm of kidney; Z87.891 Personal history of nicotine dependence; Z90.5 Acquired absence of kidney; Z79.52 Long term (current) use of systemic steroids
CPT/HCPCS: 28041; 88307; 88342; J0690; J2250; J2371; J2704; J3010; J3490; J7030; J9999

== ENCOUNTER → 2025-02-17 08:56 | Outpatient (BNVA) | payer OTHER, MEDICAID, SELFPAY | PROVIDERS: PCP Family Medicine; Visit Provider Family Medicine | DX: Z51.81 Encounter for therapeutic drug level monitoring (principal); R73.03 Prediabetes; Z13.6 Encounter for screening for cardiovascular disorders; E55.9 Vitamin D deficiency, unspecified | CPT/HCPCS: 80053; 80061; 82043; 82306; 83036; 85025 ==

== ENCOUNTER 2025-03-22 12:00 | Oncology outpatient (recurring) (ONCR) | payer OTHER, MEDICAID, SELFPAY ==
[2025-03-15] MEDS: iohexol 350 mg/mL 500 mL Btl (per mL) PO (12:14)
--- NOTE | 2025-03-15 12:30 | CTR_ITS ---
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 Radiation optimization: All CT scans at this facility use at least one of these dose optimization techniques: automated exposure control; mA and/or kV adjustment per patient size (includes targeted exams where dose is matched to clinical indication); or iterative reconstruction. Contrast material: OMNI 350; Contrast volume: 100 ml; Contrast route: INTRAVENOUS (IV); COMPARISON: CT chest abdpel w/*[id number] 11/20/2024 9:22 AM RADIATION DOSE METRICS: Total DLP (mGy-cm): 2980.56 FINDINGS: Lungs: Unremarkable. No consolidation. No masses. Pleural spaces: Unremarkable. No pneumothorax. No pleural effusion. Heart: Unremarkable. No cardiomegaly. No pericardial effusion. Lymph nodes: Unremarkable. No enlarged lymph nodes. Vasculature: Unremarkable. No aortic aneurysm. Bones/joints: Unremarkable. No acute fracture. Soft tissues: Unremarkable. 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 Radiation optimization: All CT scans at this facility use at least one of these dose optimization techniques: automated exposure control; mA and/or kV adjustment per patient size (includes targeted exams where dose is matched to clinical indication); or iterative reconstruction. Contrast material: OMNI 350; Contrast volume: 100 ml; Contrast route: INTRAVENOUS (IV); COMPARISON: CT abdomen pelvis w con* [id number] 07/17/2024 10:41 AM RADIATION DOSE METRICS: Total DLP (mGy-cm): 2980.56 FINDINGS: Lungs: Lung bases are clear. No pleural effusion. Liver: Normal. No mass. Gallbladder and biliary ducts: Normal. No calcified stones. No ductal dilation. Pancreas: Normal. No ductal dilation. Spleen: Normal. No splenomegaly. Adrenal glands: Normal. No mass. Kidneys and ureters: There is surgical absence of the right kidney. Stomach and bowel: A large hernia involves the right anterior abdominal wall laterally and contains small bowel. Appendix: No evidence of appendicitis. Intraperitoneal space: Unremarkable. No free air. No significant fluid collection. Vasculature: Unremarkable. No abdominal aortic aneurysm. Lymph nodes: Unremarkable. No enlarged lymph nodes. Urinary bladder: Unremarkable as visualized. Reproductive: The prostate gland is abnormally enlarged. Bones/joints: Unremarkable. No acute fracture. Soft tissues: Unremarkable. CT/CT chest abdpel w/*[id number] IMPRESSION: 1. No acute findings. 2. There is no evidence of active neoplastic disease. IMPRESSION: 1. There is no evidence of active neoplastic disease. 2. Stable large right anterior abdominal wall hernia
[2025-03-15] MEDS: iohexol 350 mg/mL 500 mL Btl (per mL) IV (12:39)
[2025-03-22 11:46] LABS: Hematocrit 44.2 % (37-53); Hemoglobin 15.30 g/dL (11.27-16.99); Mean Corpuscular HGB Conc 34.6 g/dL (30-55); Mean Corpuscular Hemoglobin 29.4 pg (27-33); Mean Corpuscular Volume 85.0 fl (82-101); Nucleated Red Blood Cells % 0 %; Platelet Count 231 10^3/cmm (157-399); Red Blood Count 5.20 10^6/uL (3.85-5.65); White Blood Count 8.74 10^3/uL (3.29-11.43)
[2025-03-22 12:02] LABS: Alanine Aminotransferase 19 U/L (0-41); Albumin Level 4.1 g/dL (3.5-5.2); Alkaline Phosphatase 98 U/L (40-130); Anion Gap 16.3 (5-19); Aspartate Amino Transferase 17 U/L (0-40); Blood Urea Nitrogen 15 mg/dL (8-23); Calcium 9.7 mg/dL (8.5-10.5); Carbon Dioxide 26 mmol/L (22-29); Chloride 95 mmol/L (98-107); Globulin 2.6 g/dL (1.3-4.6); Glucose 112 mg/dL (65-115); Osmolality Calculated 280 mOsm/kg (285-295); Potassium 3.3 mmol/L (3.5-5.1); Sodium 134 mmol/L (136-145); Total Protein 6.7 g/dL (6.6-8.7)
[2025-03-22 12:06] LABS: Creatinine Clr Calc Pharmacy 90.2111
== END 2025-04-01 23:59 | disposition home or self-care (01) ==
PROVIDERS: Internal Medicine Medical Oncology; PCP Family Medicine; Visit Provider Internal Medicine
DX: C79.31 Secondary malignant neoplasm of brain; C64.9 Malignant neoplasm of unspecified kidney, except renal pelvis; Z53.9 Procedure and treatment not carried out, unspecified reason
CPT/HCPCS: 36415; 71260; 74177; 80053; 83615; 85025

== ENCOUNTER 2025-05-31 13:12 | Oncology outpatient (recurring) (ONCR) | payer OTHER, MEDICAID, SELFPAY ==
[2025-05-07 14:29] VITALS: BP 143/85; BMI 54.8
--- NOTE | 2025-05-31 14:30 | CTR_ITS ---
PROCEDURE INFORMATION: Exam: CT Chest With Contrast; Diagnostic Exam date and time: 05/31/2025 03:02 PM Age: 59 years old Clinical indication: Condition or disease; Cancer; Kidney, right; Other: Clear cell carcinoma right kidney; Prior surgery; Surgery date: 6+ months; Surgery type: RT kidney TECHNIQUE: Imaging protocol: Diagnostic computed tomography of the chest with contrast. Radiation optimization: All CT scans at this facility use at least one of these dose optimization techniques: automated exposure control; mA and/or kV adjustment per patient size (includes targeted exams where dose is matched to clinical indication); or iterative reconstruction. Contrast material: OMNI 350; Contrast volume: 100 ml; Contrast route: INTRAVENOUS (IV); COMPARISON: CT chest abdpel w/*[id number] 03/15/2025 12:29 PM RADIATION DOSE METRICS: Total DLP (mGy-cm): 3263.59 FINDINGS: Lungs: Right basilar ground-glass opacity, nonspecific. 3 mm subpleural nodular density in the lateral left lung base (series 5, image 45). Calcified granuloma in the posterior left lung base. Calcified granuloma in the left upper lobe . Pleural spaces: Unremarkable. No pneumothorax. No pleural effusion. Heart: Unremarkable. No cardiomegaly. No pericardial effusion. Coronary arteries: Coronary artery calcifications. Lymph nodes: Unremarkable. No enlarged lymph nodes. Vasculature: Atherosclerotic vascular disease. Thoracic aorta is unremarkable. No pulmonary embolism. Bones/joints: Degenerative changes of the spine with anterior osteophytic lipping. Soft tissues: Unremarkable. Other findings: Rightward convex thoracic curve. CT Chest at 12 months. (Reference: Adrian) REFERENCES: Emrehoangelica Osborn, et al. Guidelines for Management of Incidental Pulmonary Nodules Detected on CT Images: From the Fleischner Society 2017. Radiology. 2017;284(1):228-243. PROCEDURE INFORMATION: Exam: CT Abdomen And Pelvis With Contrast Exam date and time: 05/31/2025 03:02 PM Age: 59 years old Clinical indication: Condition or disease; Cancer; Kidney, right; Other: Clear cell carcinoma right kidney; Prior surgery; Surgery date: 6+ months; Surgery type: RT kidney TECHNIQUE: Imaging protocol: Computed tomography of the abdomen and pelvis with contrast. Radiation optimization: All CT scans at this facility use at least one of these dose optimization techniques: automated exposure control; mA and/or kV adjustment per patient size (includes targeted exams where dose is matched to clinical indication); or iterative reconstruction. Contrast material: OMNI 350; Contrast volume: 100 ml; Contrast route: INTRAVENOUS (IV); COMPARISON: [facility]/*[id number] 03/15/2025 12:29 PM in previous RADIATION DOSE METRICS: Total DLP (mGy-cm): 3263.59 FINDINGS: Liver: Normal. No mass. Gallbladder and biliary ducts: Possible layering gallbladder sludge. No gallbladder wall thickening or pericholecystic fluid. No biliary ductal dilatation. Pancreas: Normal. No ductal dilation. Spleen: Normal. No splenomegaly. Adrenal glands: Normal. No mass. Kidneys and ureters: Status post right nephrectomy. Satisfactory enhancement and excretion of contrast from the left kidney. Stomach and bowel: Gastric wall thickening versus underdistention. Appendix: Normal appendix. Intraperitoneal space: Unremarkable. No free air. No significant fluid collection. Vasculature: Atherosclerotic vascular disease. Lymph nodes: No enlarged lymphadenopathy. Urinary bladder: Unremarkable as visualized. Reproductive: Unremarkable as visualized. Bones/joints: Unremarkable. No acute fracture. Soft tissues: Right anterolateral abdominal wall hernia containing bowel loops. No obstruction. CT/CT chest [facility] w/*[id number] IMPRESSION: 1. Right basilar ground-glass opacity, could be atelectasis versus pneumonia. 2. Atherosclerotic vascular disease. 3. Coronary artery calcifications. 4. No pulmonary embolism. 5. 3 mm subpleural nodular density in the lateral left lung base.For patients at low risk (minimal or absent history of smoking and of other known risk factors), no routine follow-up is indicated. For patients at high risk (history of smoking or of other known risk factors), consider optional IMPRESSION: 1. Status post right nephrectomy. 2. Right anterolateral abdominal wall hernia containing bowel loops. No obstruction. This is similar to the prior CT from 08/23/2023. 3. Gastric wall thickening versus underdistention. 4. Possible layering gallbladder sludge. No gallbladder wall thickening or pericholecystic fluid.
[2025-05-31] MEDS: iohexol 350 mg/mL 500 mL Btl (per mL) PO (14:49)
[2025-05-31 15:00] LABS: Blood Urea Nitrogen 14 mg/dL (8-23)
[2025-05-31] MEDS: iohexol 350 mg/mL 500 mL Btl (per mL) IV (15:15)
== END 2025-06-01 23:59 | disposition home or self-care (01) ==
LOC: ONCMED 13:13
PROVIDERS: Internal Medicine Medical Oncology; PCP Family Medicine; Visit Provider Internal Medicine
DX: C79.31 Secondary malignant neoplasm of brain (principal); C64.9 Malignant neoplasm of unspecified kidney, except renal pelvis; Z53.9 Procedure and treatment not carried out, unspecified reason; C64.1 Malignant neoplasm of right kidney, except renal pelvis; K43.9 Ventral hernia without obstruction or gangrene; Z90.5 Acquired absence of kidney; N40.0 Benign prostatic hyperplasia without lower urinary tract symptoms
CPT/HCPCS: 71260; 74177; 82565; 84520

== ENCOUNTER 2025-06-07 09:36 | Oncology outpatient (recurring) (ONCR) | payer OTHER, MEDICAID, SELFPAY ==
[2025-05-07 14:29] VITALS: BP 143/85; BMI 54.8
[2025-06-07 09:52] LABS: Hematocrit 44.6 % (37-53); Hemoglobin 15.30 g/dL (11.27-16.99); Mean Corpuscular HGB Conc 34.3 g/dL (30-55); Mean Corpuscular Hemoglobin 29.6 pg (27-33); Mean Corpuscular Volume 86.3 fl (82-101); Nucleated Red Blood Cells % 0 %; Platelet Count 221 10^3/cmm (157-399); Red Blood Count 5.17 10^6/uL (3.85-5.65); White Blood Count 9.23 10^3/uL (3.29-11.43)
[2025-06-07 10:08] LABS: Alanine Aminotransferase 17 U/L (0-41); Albumin Level 4.5 g/dL (3.5-5.2); Alkaline Phosphatase 101 U/L (40-130); Anion Gap 16.8 (5-19); Aspartate Amino Transferase 18 U/L (0-40); Blood Urea Nitrogen 16 mg/dL (8-23); Calcium 9.5 mg/dL (8.5-10.5); Carbon Dioxide 26 mmol/L (22-29); Chloride 97 mmol/L (98-107); Globulin 2.6 g/dL (1.3-4.6); Glucose 129 mg/dL (65-115); Osmolality Calculated 285 mOsm/kg (285-295); Potassium 3.8 mmol/L (3.5-5.1); Sodium 136 mmol/L (136-145); Total Protein 7.1 g/dL (6.6-8.7)
== END 2025-07-02 23:59 | disposition home or self-care (01) ==
PROVIDERS: Internal Medicine Medical Oncology; PCP Family Medicine; Visit Provider Internal Medicine
DX: C64.1 Malignant neoplasm of right kidney, except renal pelvis (principal)
CPT/HCPCS: 36415; 80053; 85025

== ENCOUNTER 2025-06-07 12:46 | Inpatient (IN) | payer OTHER, MEDICAID, SELFPAY ==
--- OUTSIDE RECORDS SUMMARY | 2008-03-12 03:30 | XMS_ITS | Continuity of Care Document ---
Author Organization [facility] Address [address] [place] [id number] Phone Care Team Providers Care Channel Turner Name Role Phone Morenita Almonte DO Unavailable Unavailable Procedures Procedure Date Office/outpatient visit,est, mod 2007 Supplemental Report Office/outpatient visit,est, [facility] 2007 Supplemental Report Office/outpatient visit,[facility], [facility] 2007 Advance Directives Directive Yes / No Effective Date File Name No Information Encounters Encounter Description Practice Location Reason(s) For Visit Diagnoses Date Provider Providers Copied on Encounter Office/outpat ient visit,est, [facility], [address], [id number], tel:[phone] No Information [address] G[address] Xavier. [address] [place] [address], [id number] , . tel: [phone] Office/outpat ient visit,est, [facility], [address] [place] [address], [id number], tel:[phone] [facility] No Information [address] Xavier. [address] [place] [address], [id number] , [place]. tel: [phone] Office/outpat ient visit,new, [facility], [address] [place] [address], [id number], tel:[phone] [facility] No Information 8 Gage Xavier. [address] [facility], [address], [place], [place], [id number] , [place]. tel:[phone] Family History Family Member Type Diagnosis Age At Onset No Information Payers Payer name Insurance type Covered green party ID Authoriza tion(s) No Information Social History Type Description Quantity Date Captured Comments Sex Male Smoking Status No Information Chief Complaint And Reason For Visit No Information Reason For Referral Reason For Referral No Information History Of Present Illness Encounter Date Complaint History Of Prese nt Illness No Information Functional Status Date Functional Assessmen t No Information Instructions Date Instruction Additional Infor mation No Information Assessments Type Assessment Date No Information Patient Care Teams Name Effective Dates (start - stop) Status Members No Information
[2025-05-07 14:29] VITALS: BP 143/85; BMI 54.8
--- OUTSIDE RECORDS SUMMARY | 2025-06-04 10:00 | XMS_ITS | Encounter Summary ---
Author Organization [facility] Address [address] [place] [address] Care Team Providers Care Wreath [employer] Garland Maker Name Role Phone Liss Avendaño NP Primary Care Provider Unavailab le Reason for Visit * Reason Comments Blurred Vision Eye Exam * Documentation (Routine) - Open Specialty Diagnoses / Procedures Referred By Steve urbina Referred To Contact Optometry Diagnoses yearly CEE Procedures OFFICE VISIT ESTABLISHED Amira Medeiros, OD [address] [place] [address] Phone: tel: fax: Amira Medeiros, OD [address] [place] [address] Phone: tel: fax: Referral ID Status Reason Start Date Expiration Date Visits Re quested Visits Authorized [id number] Open 06/04/2025 07/05/2026 1 1 Encounter Details Date Type Department Care Team (Latest Contact Info) Description 06/04/2025 10:00 AM CDT Office Visit [facility]ability Analyst [facility]ometry [facility] [address] [place] [address] Amira Medeiros, OD [address] [place] [address] Allergic conjunctivitis of both eyes (Primary Dx); Dermatochalasis of both upper eyelids; Pseudophakia of both eyes Social History Tobacco Use Types Packs/Day Years Used Date Smoking Tobacco: Former Cigarettes Smokeless Tobacco: Never Alcohol Use Standard Drinks/Week Comments Not Currently 0 (1 standard drink = 0.6 oz pur e alcohol) Feeling Safe Answer Date Recorded Are you in a relationship wi th someone who hurts you emotionally and/or physically? No 10/20/2024 Food Insecurity Answer Date Recorded Patient needs follow up regardin 01/08/2025 Transportation Needs Answer Date Record ed Patient needs follow up regardin 01/08/2025 Housing Stability Answer Date Recorded Social/Environmental Concerns No concerns Utility Needs Answer Date Recorded Patient needs follow up regardin 01/08/2025 Sex and Gender Information Value Date Recorded Sex Assigned at Not on file Legal Sex Male 4:43 PM [employer] Gender Identity Not on file Sexual Orientation Not on file documented as of this encounter Progress Notes * Amira Medeiros, OD - 06/04/2025 10:02 AM CDT HPI Blurred Vision In both eyes. Onset was gradual. Vision is blurred. Eye Exam In both eyes. Characterized as blurry vision. Severity is mild. Comments Pt is present for EST yearly eye exam. PT seems to have acquired tremor Pt states vision is stable. PT states difficulty reading without gls. PT states needs lots of lightto see. Eye comfort is irritated sometimes. Burning due to dryness at night, sometimes seasonal allergies Pt gtts - NO Smoking - NO HPI reviewed and discussed with patient. Last edited by Amira Medeiros, OD on 06/04/2025 10:02 AM. ASSESSMENT: Encounter Diagnoses Name Primary? Allergic conjunctivitis of both eyes Yes Dermatochalasis of both upper eyelids Pseudophakia of both eyes PLAN: Orders Placed This Encounter azelastine (OPTIVAR) 0.05 % solution PLAN: - Prescribed Azelastine jesenia 1 gtt 2x/day in both eyes for 14 days. As needed afterward. - Pt reported dermatochalasis is not really bothering him. Continue to monitor. Consider eyelid surgery if necessary in the future. - PCIOL is clear and center in OU. Continue to monitor. Return in about 1 year (around 06/04/2026) for Full Slot, CEE. TOBACCO COUNSELING He is not a tobacco/nicotine user. MENTAL STATUS: Alert, oriented x 3, and with normal affect. ALLERGIES: Patient has no known allergies. This medical record reflects the history of present illness as obtained by myself in discussion with the patient. Reference the medication and patient instruction activity for more information. Dr. Amira Medeiros documented in this encounter Plan of Treatment Upcoming Encounters Date Type Department Care Team (Late st Contact Info) Description 06/18/2025 1:00 PM CDT Telephone Check Up [facility] [address] [place] [id number] Easton Hines MD [address] [place] [address] 12/08/2025 10:30 AM CDT Office Visit [facility] Liability Analyst Optometry [facility] [address] [place] [address] Amira Medeiros, OD [address] [place] [address] 06/06/2026 10:20 AM CDT Office Visit [facility]ability Analyst Optometry [facility] [address] [place] [address] Amira Medeiros, OD [address] [place] [address] documented as of this encounter Visit Diagnoses Diagnosis Allergic conjunctivitis of both eyes- Primary Other chronic allergic conjunctivitis Dermatochalasis of both upper eyelids Pseudophakia of both eyes Lens replaced by other means documented in this encounter Care Teams Wreath And Garland Maker Relationship Specialty Start Date End Date Liss Avendaño NP NO ADDRESS ON FILE PCP - General 03/10/08 documented as of this encounter
[2025-06-07] VITALS (20 sets, daily range): BP systolic 112–188; BP diastolic 49–136; PULSE 62–88; RESP 17–29; TEMP 36.6; O2SAT 96–99
--- NOTE | 2025-06-07 12:47 | XR_ITS ---
WS: [id number] Portable AP upright chest, 06/07/2025 Clinical Data: chest pain Comparison: Portable chest, 09/03/2021 Findings: No nodules, masses or effusions are seen. The heart is enlarged. The pulmonary vascularity is not increased. No pneumonia or pneumothorax is seen. The aortic arch shows tortuosity. There is a dextroscoliosis of the thoracic spine. XR/XR chest 1V portable [id number] Impression: Cardiomegaly and atherosclerosis.
--- OUTSIDE RECORDS SUMMARY | 2025-06-07 12:52 | XMS_ITS | Clinical Summary ---
Author Organization [facility] Address [address] [place]: [place] [address] Care Team Providers Care Computing Architect Name Role Phone Liss Avendaño NP Primary Care Provider Unavailab le Allergies No known active allergies Medications acetaminophen (TYLENOL) 500 mg tablet Take 1,000 mg by mouth every 6 hours as needed. 3 Active albuterol sulfate HFA 90 mcg/actuation aerosol inhaler Take 2 Puffs by inhalation every 6 hours as needed. Active budesonide-formote roL (SYMBICORT) 160-4.5 mcg/actuation HFA Aerosol Inhaler Take 2 Puffs by inhalation 2 times daily. Active cetirizine (ZyrTEC) 10 mg tablet Take 10 mg by mouth. Active lansoprazole (PREVACID) 15 mg Capsule, Delayed Release(E.C.) Take 30 mg by mouth. Active hydroCHLOROthiazid e 25 mg tablet Take 1 Tablet by mouth daily in the morning. Active simethicone 80 mg Tablet, Chewable Take 80 mg by mouth every 6 hours as needed. 3 Active terazosin (HYTRIN) 10 mg capsule Take 10 mg by mouth daily. Active predniSONE (DELTASONE) 10 mg tablet Take 0.5 Tablets by mouth daily. 4 Active ketoconazole (NIZORAL) 2 % Cream APPLY 1 GRAM TO AFFECTED AREAS ON NECK/CHEST TWICE DAILY FOR 3 WEEKS, THEN NEEDED 5 Active azelastine (OPTIVAR) 0.05 % solutionIndication s:Allergic conjunctivitis of both eyes Administer 1 Drop in both eyes 2 times daily for 14 days. 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 [address] [place] [id number] Medeiros, Amira Lenin, OD Allergic conjunctivitis of both eyes (Primary Dx); Dermatochalasis of both upper eyelids; Pseudophakia of both eyes 05/20/2025 12:27 PM CDT - 05/20/2025 11:59 PM CDT Hospital Encounter [facility] [address] [place] [address] Easton Hines MD Discharge Disposition: Home or Self Care 05/18/2025 External Device Data STL ABSTRACTION Provider, Abstract 03/23/2025 Telephone [facility] Neuro[facility] [address] [place] [address] Easton Hines MD Sooner MRI 03/17/2025 External Device Data STL ABSTRACTION Provider, Abstract 03/16/2025 External Device Data STL ABSTRACTION Provider, Abstract from Last 3 Months Immunizations Immunization Administration Dates Next Due (SHINGRIX)(50 YRS UP) ZOSTER VACCINE RECOMBINANT, 0.5 ML, IM 02/15/2023,12/07/2022 (TDVAX)(7 YRS UP) TETANUS AN D DIPHTHERIA TOXOIDS, ADSORBED (2 LF OF TETANUS TOXOID AND 2 LF OF DIPHTHERIA TOXOID), 0.5ML (PF), IM 07/23/2005 INFLUENZA VACCINE QUADRIVALE NT 6 MOS UP CELL DERIVED PF IM 06/20/2016 Influenza Seasonal Unspecified Formulation IM PNEUMOVAX (PPSV23) pneumococ sujit polysaccharide 23-valent Vaccine 06/20/2016 Family History Medical History Relation Name Comments Hypertension Brother Coronary Artery Disease Father Hypertension Father Relation Name Status Comments Brother Father Social History Tobacco Use Types Packs/Day Years Used Date Smoking Tobacco: Former Cigarettes Smokeless Tobacco: Never Tobacco Cessation:Counseling Given: No Alcohol Use Standard Drinks/Week Comments Not Currently [...] on file 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 Gender Identity Not on file Sexual Orientation Not on file Last Filed Vital Signs Vital Sign Reading Time Taken Comments Blood Pressure 136/72 11/25/2024 9:47 AM CDT Pulse 100 11/25/2024 9:47 AM CDT Temperature 36.6 C (97.9 F) 11/25/2024 9:47 AM CDT Respiratory Rate 20 11/25/2024 9:47 AM CDT Oxygen Saturation 95% 11/25/2024 9:47 AM CDT Inhaled Oxygen Concentration - - Weight 179.1 kg (394 lb 12.8 oz) 11/25/2024 9:47 AM CDT Height 177.8 cm (5' 10 ) 11/25/2024 9:47 AM CDT Body Mass Index 56.65 11/25/2024 9:47 AM CDT Plan of Treatment Upcoming Encounters Date Type Department Care Team (Late st Contact Info) Description 06/18/2025 1:00 PM CDT Telephone Check Up [facility] [address] [place] [address] Easton Hines MD [address] [place] [address] 12/08/2025 10:30 AM CDT Office Visit [facility] Opt[facility] [address] [place] [address] MedeirosAmira melendez, OD [address] [place] [phone] 06/06/2026 10:20 AM CDT Office Visit [facility]asive Band Winder Opt[facility] [address] [place] [address] Medeiros, Amira Phelps, OD [address] [place] [address] Health Maintenance Due Date Last Done Comments Pre-Diabetes and Diabetes Screening 1965 DTAP/TDAP/TD VACCINES (1 - Tdap) 07/24/2005 07/23/20 05 COLORECTAL SCREENING 2008 Colorectal Cancer Screening 2008 FIT-DNA Q 3 years 2008 FIT/FOBT Q 1 year 2008 Flex Sig/CT Colonography Q 5 years 2008 RSV VACCINE (60+ or ) (1 - Risk 60-74 years 1-dose series) 2023 INFLUENZA VACCINE (#1) 2025 05/19/2017, 2015 ZOSTER VACCINE Completed 02/15/2023, 12/07/2022 Medical Devices Implanted Type Area Filtering Machine Tender Device Identifier Shelf Expiration Date Model / Serial / Lot Collagen Duramatrix 3x3in [facility]33 - [id number] Implanted:Qty: 1 on 01/28/2024 by Easton Hines MD at [facility] Collagen Right: Brain [employer] [id number] 08/01/2026 [facility]33 / / [id number] Hemostatic Surgifoam Sz100 1973 - [id number] Implanted:Qty: 1 on 01/28/2024 by Easton Hines MD at [facility] Hemostatic Right: Brain [employer] [id number] 10/11/20271973 / / [id number] Hemostatic Surgiflo 8ml W/ Thrombin 2994 - [id number] Implanted:Qty: 1 on 01/28/2024 by Easton Hines MD at [facility] Hemostatic Right: Brain [employer]- [employer] [id number] 01/30/2025 2994 / / [id number] Agent Hemostat Surgicel 2x3in 3s - [id number] Implanted:Qty: 1 on 01/28/2024 by Easton Hines MD at [facility] Hemostatic Right: Brain J[employer]- [employer] [id number] 06/01/2028 1953S / / [id number] Agent Hemostat Surgicel 3x4in 3s - [id number] Implanted:Qty: 1 on 01/28/2024 by Easton Hines MD at [facility] Hemostatic Right: Brain [employer] [id number] 08/01/2028 1943S / / [id number] Hemostatic Surgiflo 8ml W/ Thrombin 2994 - [id number] Implanted:Qty: 1 on 01/28/2024 by Easton Hines MD at [facility] Hemostatic Right: Brain [employer]- [employer] [id number] 01/30/2025 2994 / / [id number] Lens Iol Tecnis Eyhance 18.5 [id number] - [id number] Implanted:Qty: 1 on 09/08/2024 by Matias Parry MD at [facility] Lens Right: Eye [employer] 04/09/2027 [id number] 85 / [id number] / Lens Iol Tecnis Eyhance 18.0 [id number] - [id number] Implanted:Qty: 1 on 10/20/2024 by Matais Parry MD at [facility] Lens Left: Eye [employer] [id number] 06/17/2027 [id number] 80 / [id number] / Plate Matrxneuro Bur Hl Cvr 04.503.021 - [id number] Implanted:Qty: 1 on 01/28/2024 by Easton Hines MD at [facility] Plate Right: Cranial J&J- DEPUY SYNTHES 04.503.0 21 / / Plate Matrxneuro Bur Hl Cvr .023 - [id number] Implanted:Qty: 1 on 01/28/2024 by Easton Hines MD at [facility] Plate Right: Cranial J&J- DEPUY SYNTHES 502.0 23 / / Plate Matrxneuro Box 503.065 - [id number] Implanted:Qty: 1 on 01/28/2024 by Easton Hines MD at [facility] Plate Right: Cranial J&J- DEPUY SYNTHES 04.503.0 65 / / Screw Matrixneuro Sd .104. - [id number] Implanted:Qty: 1 on 01/28/2024 by Easton Hines MD at [facility] Screw Right: Cranial J&J- DEPUY SYNTHES 04.503.1 04.01 / / Screw Matrixneuro Sd .104.01 - [id number] Implanted:Qty: 1 on 01/28/2024 by Easton Hines MD at [facility] Screw Right: Cranial J&J- DEPUY SYNTHES 04.503.1 04.01 / / Screw Matrixneuro Sd .104.01 - [id number] Implanted:Qty: 1 on 01/28/2024 by Easton Hines MD at [facility] Screw Right: Cranial J&J- DEPUY SYNTHES 04.503.1 04.01 / / Screw Matrixneuro Sd .104.01 - [id number] Implanted:Qty: 1 on 01/28/2024 by Eatson Hines MD at [facility] Screw Right: Cranial J&J- DEPUY SYNTHES 04.503.1 04.01 / / Screw Matrixneuro Sd .104.01 - [id number] Implanted:Qty: 1 on 01/28/2024 by Easton Hines MD at [facility] Screw Right: Cranial J&J- DEPUY SYNTHES 04.503.1 04.01 / / Screw Matrixneuro Sd .. - [id number] Implanted:Qty: 1 on 01/28/2024 by Easton Hines MD at [facility] Screw Right: Cranial J&J- DEPUY SYNTHES 04.503.1 04.01 / / Screw Matrixneuro Sd .104. - [id number] Implanted:Qty: 1 on 01/28/2024 by Easton Hines MD at [facility] Screw Right: Cranial J&J- DEPUY SYNTHES 04.503.1 04.01 / / Screw Matrixneuro Sd .104. - [id number] Implanted:Qty: 1 on 01/28/2024 by Easton Hines MD at [facility] Screw Right: Cranial J&J- DEPUY SYNTHES 04.503.1 04.01 / / Screw Matrixneuro Sd .104. - [id number] Implanted:Qty: 1 on 01/28/2024 by Easton Hines MD at [facility] Screw Right: Cranial J&J- DEPUY SYNTHES 04.503.1 04.01 / / Screw Matrixneuro Sd .104. - [id number] Implanted:Qty: 1 on 01/28/2024 by Easton Hines MD at [facility] Screw Right: Cranial J&J- DEPUY SYNTHES 04.503.1 04.01 / / Screw Matrixneuro Sd .104. - [id number] Implanted:Qty: 1 on 01/28/2024 by Easton Hines MD at [facility] Screw Right: Cranial J&J- DEPUY SYNTHES 04.503.1 04.01 / / Procedures Procedure Name Priority Date/Time Associated Diagnosis Comments MRI BRAIN W WO CONTRAST Routine 05/20/2025 1:30 PM CDT Metastasis to brain (CMS/HCC) S/P craniotomy from Last 3 Months Results * MRI BRAIN W WO CONTRAST (05/20/2025 1:30 PM CDT) Anatomical Region Laterality Modality Head Magnetic Resonan ce 05/20/2025 2:04 PM CDT Impressions 05/21/2025 9:10 AM CDT IMPRESSION: Please see below. Exam: MRI BRAIN W WO CONTRAST Date/Time of Exam: 05/20/2025 1:30 PM Reason For Exam: other. Diagnosis: Metastasis to brain (CMS/HCC); S/P craniotomy. Technique: MRI of the brain was performed prior to and following the administration of intravenous contrast. Contrast: 20 mL MultiHance. Comparison: Brain MRI 12/03/2024. Findings: Stable enhancing nodular lesion in the atrium of the left ventricle measuring 1.6 cm transverse by 1.4 cm AP by 2.6 cm craniocaudad. Stable mild perilesional edema. No hydrocephalus or midline shift. Stable right anterior frontal craniotomy and underlying increased T2 signal and volume loss without enhancement consistent with postoperative changes. Stable mild scattered increased T2 signal in the cerebral white matter. Normal brainstem and cerebellum. Stable suspected benign left posterior paramedian nasopharyngeal mucosal cystic lesion. No fluid in the middle ear cavities or mastoid air cells. Stable appearance of the orbits. Minimal left ethmoid sinus mucosal thickening. Mild septal deviation to the right anteriorly and to the left posteriorly. IMPRESSION: 1. Stable enhancing nodular lesion in the atrium of the left lateral ventricle and mild perilesional edema. 2. Stable chronic right anterior frontal lobe postoperative changes without evidence of tumor recurrence. 3. Mild chronic small vessel ischemic changes. Narrative Procedure Note Salvador Foley MD - 05/21/2025 IMPRESSION: Please see below. Exam: MRI BRAIN W WO CONTRAST Date/Time of Exam: 05/20/2025 1:30 PM Reason For Exam: other. Diagnosis: Metastasis to brain (CMS/HCC); S/P craniotomy. Technique: MRI of the brain was performed prior to and following the administration of intravenous contrast. Contrast: 20 mL MultiHance. Comparison: Brain MRI 12/03/2024. Findings: Stable enhancing nodular lesion in the atrium of the left ventricle measuring 1.6 cm transverse by 1.4 cm AP by 2.6 cm craniocaudad. Stable mild perilesional edema. No hydrocephalus or midline shift. Stable right anterior frontal craniotomy and underlying increased T2 signal and volume loss without enhancement consistent with postoperative changes. Stable mild scattered increased T2 signal in the cerebral white matter. Normal brainstem and cerebellum. Stable suspected benign left posterior paramedian nasopharyngeal mucosal cystic lesion. No fluid in the middle ear cavities or mastoid air cells. Stable appearance of the orbits. Minimal left ethmoid sinus mucosal thickening. Mild septal deviation to the right anteriorly and to the left posteriorly. IMPRESSION: 1. Stable enhancing nodular lesion in the atrium of the left lateral ventricle and mild perilesional edema. 2. Stable chronic right anterior frontal lobe postoperative changes without evidence of tumor recurrence. 3. Mild chronic small vessel ischemic changes. us Easton Hines MD MR ORDERABLES Final Result from Last 3 Months [facility] [employer] Advance Directives For more information, please contact: [phone] * Full Code (Latest Code Status on File) Date Activated Date Inactivated Comments 10/20/2024 9:30 AM 10/20/2024 1:11 PM * Full Code Date Activated Date Inactivated Comments 09/08/2024 10:35 AM 09/08/2024 3:33 PM * Full Code Date Activated Date Inactivated Comments 01/28/2024 2:07 PM 01/30/2024 7:31 PM * Full Code Date Activated Date Inactivated Comments 01/28/2024 6:59 AM 01/28/2024 2:07 PM Care Teams Computing Architect Relationship Specialty Start Date End Date Liss Avendaño NP NO ADDRESS ON FILE PCP - General 03/10/08
--- NOTE | 2025-06-07 13:03 | ECG_ITS ---
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 Measurements Intervals [place] Rate: 90 P: 227 AR: 78 QRS: 16 QRSD: 94 T: 24 QT: 370 QTc: 454 Interpretive Statements SINUS RHYTHM WITH SHORT AR INTERVAL WITH OCCASIONAL ECTOPIC PREMATURE COMPLEXES LOW QRS VOLTAGE IN PRECORDIAL LEADS [QRS DEFLECTION < 1.0 mV IN CHEST LEADS] POSSIBLE ANTERIOR MYOCARDIAL INFARCTION , OF INDETERMINATE AGE [30 ms Q WAVE IN V3/V4, OR R < 0.2 mV IN V4] Compared to ECG 08/31/2021 22:49:52 Short AR interval now present Myocardial infarct finding now present Sinus tachycardia no longer present T-wave abnormality no longer present Heavy baseline artifacts; Need to repeat the study. Electronically Signed On 06-07-2025 23:26:26 CDT by Rosie Barnard M.D. [email or web address]
--- NOTE | 2025-06-07 13:11 | PC.NURSE ---
EKG DELAYED DUE TO MULTIPLE CHEST PAIN AND SECONDARY PATIENT ARRIVAL THAT NEEDED IMMEDIATE ASSISTANCE.
--- NOTE | 2025-06-07 13:12 | ECG_ITS ---
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 Measurements Intervals [place] Rate: 82 P: 29 MD: 190 QRS: 18 QRSD: 104 T: -9 QT: 362 QTc: 423 Interpretive Statements SINUS RHYTHM WITH SINUS ARRHYTHMIA LOW QRS VOLTAGE IN PRECORDIAL LEADS [QRS DEFLECTION < 1.0 mV IN CHEST LEADS] Compared to ECG 06/07/2025 13:03:07 Short MD interval no longer present Myocardial infarct finding no longer present Electronically Signed On 06-07-2025 23:31:07 CDT by Rosie Barnard M.D. [email or web address]
--- NOTE | 2025-06-07 13:13 | W.ED.CHESTPA ---
HPI - Chest Pain General: Chief Complaint: Chest Pain Stated Complaint: Pain in chest Time Seen by Provider: 06/07/25 13:06 History of Present Illness: 59-year-old male presents emergency room with complaints of chest pain he had left the cancer center after a follow-up visit with oncology on history of renal cell cancer he previously had a right nephrectomy he also had a craniotomy for removal of a brain tumor that had metastasized. No history of coronary artery disease no recent episodes of chest pain he was sitting in his truck after leaving his oncology appointment began having chest comfort rating to his back and his neck presented to the emergency room Associated symptoms: Deny abdominal pain, dyspnea or fever(s) Related Data Home Medications ?Medication ?Instructions ?Recorded ?Confirmed albuterol sulfate 90 mcg/actuation 2 puff inhalation Q6H PRN 05/03/20 06/07/25 aerosol inhaler (ProAir HFA) Shortness Of Breath cetirizine 10 mg tablet (Zyrtec) 10 mg PO DAILY PRN Allergy Symptoms 05/22/23 06/07/25 Previous Rx's ?Medication ?Instructions ?Recorded blood sugar diagnostic (OneTouch #100 ea 11/22/23 Ultra Test strips) blood-glucose meter (OneTouch #1 ea 11/22/23 Ultra2 Meter) hydrocodone 5 mg-acetaminophen 325 1 tab PO Q6H PRN pain #16 tabs 12/21/24 mg tablet Cam Boot #1 ea 12/23/24 cephalexin 500 mg capsule 500 mg PO TID #21 caps 12/28/24 sulfamethoxazole 800 1 tab PO BID #14 tabs 01/04/25 mg-trimethoprim 160 mg tablet (Bactrim DS) cholecalciferol (vitamin D3) 125 125 mcg PO DAILY #30 caps 02/19/25 mcg (5,000 unit) capsule CPAP mask and supplies #1 ea 04/21/25 budesonide-formoterol HFA 160 2 puff inhalation BID see pharmacy 05/10/25 mcg-4.5 mcg/actuation aerosol comment #30.6 grams inhaler (Symbicort) terazosin 10 mg capsule 10 mg PO DAILY #90 caps 05/10/25 hydrochlorothiazide 25 mg tablet 25 mg PO DAILY #90 tabs 05/11/25 lansoprazole 30 mg capsule,delayed See Rx Instructions .Route 05/11/25 release .COMPLEX #30 caps prednisone 10 mg tablet See Rx Instructions .Route 05/11/25 .COMPLEX #30 tabs Allergies Allergy/AdvReac Type Severity Reaction Status Date / Time No Known Allergies Allergy Verified 06/07/25 10:56 Review of Systems Const: Denies: fever(s) or chills Card: Reports: chest pain Resp: Denies: dyspnea GI: Denies: abdominal pain : Denies: dysuria, urinary frequency or urinary urgency Musc: Denies: neck pain or back pain Skin/Breast: Denies: rash PFSH ED PFSH: Medical History Psychiatric care Clear cell carcinoma of right kidney Dr Magana - [facility] Bacteremia due to group B Streptococcus Cellulitis GERD (gastroesophageal reflux disease) Hypertension Erectile dysfunction Surgical History Hx of brain surgery mass in his brain removed from the parietal region on the right. 01/29/2024 - renal cell carcinoma History of nephrectomy, right Hx of tonsillectomy H/O arthroscopic knee surgery Family History Father , AT AGE 84 Hypertension Lung disease Mother , at age 84 Lung disease Congestive heart failure (CHF) Social History Smoking and tobacco/nicotine status: former use of tobacco/nicotine Quit status (tobacco/nicotine): has quit using Year quit tobacco: 2014 Former quit date comment: Smoked for 40 years. 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 Pets and animals: No Leisure activites: volunteer work Sexually active: No Do you think of yourself as: Straight/Heterosexual Current gender identity: Male Latia/Sabianist: Zoroastrianism Special latia needs: No Agree to transfusion: Yes Physical Exam Const: GENERAL APPEARANCE: cooperative ORIENTATION/CONSCIOUSNESS: Yes awake, Yes oriented to person, Yes oriented to place and Yes oriented to time HENMT: COMMON NORMALS: normocephalic, atraumatic and hearing grossly normal bilaterally HEAD & SCALP: normocephalic and atraumatic Resp: COMMON NORMALS: normal respiratory effort, No retractions, No use of accessory muscles and clear to auscultation bilaterally AUSCULTATION: clear to auscultation bilaterally Cardio: COMMON NORMALS: regular rate, regular rhythm and No murmurs present (Cardio) RATE: regular rate RHYTHM: regular rhythm GI: COMMON NORMALS: Soft to palpation and No hepatosplenomegaly present AUSCULTATION: Yes normoactive bowel sounds PALPATION: Yes Soft to palpation, No Tenderness to palpation present (GI), No Guarding due to palpation present (GI) and Yes No hepatosplenomegaly present Extremity: COMMON NORMALS: normal to inspection, capillary refill normal, no clubbing, cyanosis or edema, no calf tenderness and no pedal edema Neuro: SENSORIUM/ORIENTATION: Yes oriented to person, Yes oriented to place and Yes oriented to time Skin: COMMON NORMALS: no rashes or lesions noted GENERAL SKIN EXAM: no rashes or lesions noted Course Vital Signs: Vital signs: Vital Signs Pulse Rate 85 06/07/25 12:58 Respiratory Rate 20 H 06/07/25 12:58 Pulse Oximetry 97 06/07/25 12:58 Oxygen Delivery Me thod Room Air 06/07/25 12:58 MDM - Chest Pain Medical Decision Making Patient having continued chest pain with ST elevation TX STEMI alert was called after initial triage EKG was reviewed is significant amount of artifact so we immediately repeated while in bed he is a much better tracing that shows reciprocal changes and persistent ST elevation in [address] 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 Patient was given aspirin Plavix and heparin as well as morphine ordered however [employer] team was ready to take the patient they will give morphine when they arrived in the [employer]er. All radiology interpretation(s) finalized by discharge EKG Data EKG 1: Interpretation: EKG 06/07/2025 initial EKG had significant baseline abnormalities repeated shortly after he was seen in triage. The second EKG at 1312 shows a sinus rhythm there is ST elevation in 1 and aVL with some mild ST depression in V345 and 6. ST elevation was seen in the initial EKG done in triage as well but had significant baseline artifact due to tremor. Compared to previous EKG 08/31/2021 changes are new. 1303 EKG was reviewed as well which also shows ST elevation 2 and aVF however the reciprocal changes are not quite as clear due to the artifact at baseline Discharge Plan Discharge Patient Disposition: Admitted As Inpatient Clinical Impression: ST elevation myocardial infarction (STEMI), Obstructive sleep apnea (adult) (pediatric), Metastatic renal cell carcinoma to brain, Prediabetes Condition: Stable Coding Level of Care Code ED Senior Engineering Manager for Chg Fwraghav Heart Score HEART Score Components History: Slightly Suspicous EKG: Significant ST-deviation (Acute ST elevation 1 aVL) Age: 65 or more yrs Risk Factors: >/=3 Risk Factors Troponin: Baseline Trop <16 ng/L (Trope ordered not completed at the time of dictation) HEART Score RESULT HEART Score: 6
--- NOTE | 2025-06-07 13:13 | PC.NURSE ---
was unable to obtain Bp at triage, took patient back after EKG performed (stemi). vitals obtained charted.
--- NOTE | 2025-06-07 13:18 | XACV_ITS ---
Exam Room: 2 Ht: 178 cm Wt: 181 kg BSA: 3.10 m2 Gender: Male : 1965 Any Known Allergies: No known allergies Exam Priority: Routine Procedure(s): Procedure Description: Diagnostic procedure Procedure Description: PCI procedure Procedure Description: Drug Eluting Coronary Stent Procedure Description: PTCA Procedure Description: Miscellaneous Procedure Description: ACT Procedure Description: Coronary Angiography Diagnostic Cath Status: Emergency Diagnostic Findings * Left Main has mild luminal irregularities. * Mid Right Coronary Artery to Distal Right Coronary Artery: severe 80- 90% stenosis, ALEXIS: 3 flow. PLV branch is totally occluded with left to right collaterals. * 1st Diagonal: total thrombotic occlusion, ALEXIS:0 flow. This is culprit lesion for STEMI. * Proximal to Mid Left Anterior Descending: severe 80% stenosis, ALEXIS: 3 flow. * Mid Circumflex: significant 80% stenosis, ALEXIS: 3 flow. * Right Posterior AV: total occlusion, ALEXIS: 3 flow. * Coronary angiography shows right dominance. PCI Status: Emergency PCI Indication: Immediate PCI for STEMI Interventional Findings * Procedure detail: XB 3.0 guide catheter was used to engage the left main artery. Run-through wire was used to cross mid circumflex artery stenosis. We predilated the stenosis with 2.75 x 15 mm semicompliant balloon. This was followed by placement of 3.0 x 26 mm drug-eluting stent. We then turned our attention to LAD diagonal artery bifurcation disease. We predilated the diagonal artery with 2.75 x 15 mm semicompliant balloon. This was followed by predilation with 2.5 x 15 mm semicompliant balloon. LAD stenosis was predilated with 2.5 x 15 mm semicompliant balloon. We then predilated both proximal to mid LAD and diagonal arteries with 2.75 x 15 mm NC balloon. We then performed a mini crush bifurcation stenting with 2.75 x 22 mm resolute Kim drug-eluting stent in diagonal artery crushed with a 2.75 x 15 mm NC balloon. We then placed 3.0 x 22 mm resolute [place]te drug-eluting stent in the LAD. This stent was post dilated with 3.5x12mm NC balloon at high pressure. At this time, final angiogram was performed that showed excellent stent expansion, ALEXIS 3 flow and no residual stenosis. Patient left lab support tech in a stable condition. . * Mid Left Anterior Descendin% stenosis treated with a AB TREK 2.50X15 RX BALLOON, MDT NC EUPHORA RX 2.55G74AL BALLOON, MDT NC EUPHORA RX 2.38G97SX BALLOON, MDT R KIM 3.0X22 KAMINI, and MDT NC EUPHORA RX 3.13P82CP BALLOON. 0% residual stenosis, ALEXIS: 3 flow. * Mid Circumflex: 80% stenosis treated with a AB TREK 2.75X15 RX BALLOON, and MDT R KIM 3.0X26 KAMINI. 0% residual stenosis, ALEXIS: 3 flow. * 1st Diagonal: 100% stenosis treated with a AB TREK 2.75X15 RX BALLOON, AB TREK 2.50X15 RX BALLOON, MDT NC EUPHORA RX 2.68C21EY BALLOON, and MDT R KIM 2.75X22 KAMINI. 0% residual stenosis, ALEXIS: 3 flow. Conclusions 1. Total thrombotic occlusion of first diagonal artery. This is culprit vessel for ST elevation MD. Successful revascularization with bifurcation stenting of LAD and diagonal artery with 2 stents. Severe mid circumflex artery stenosis status post PCI with 1 stent. Severe RCA stenosis so that will undergo staged intervention in 1 month. 2. Mid Left Anterior Descending was treated with a Balloon, Balloon, Balloon, Drug Eluting Stent, and Balloon. 3. Mid Circumflex was treated with a Balloon, and Drug Eluting Stent. 4. 1st Diagonal was treated with a Balloon, Balloon, Balloon, and Drug Eluting Stent. Recommendations * Dual antiplatelet therapy with aspirin and plavix. * High intensity statin therapy. * Outpatient cardiology follow up in 2 weeks. * Staged PCI of RCA in 1 month. Interventional RX Recommendation: PCI w/o planned CABG Diagnostic RX Recommendation: PCI w/o planned CABG Anticoagulation: Heparin Pressures Phase:Rest AO : 158 / 120 ( 138 ) @ 2:50:00 PM 165 / 122 ( 141 ) @ 2:57:00 PM 163 / 128 ( 144 ) @ 3:10:00 PM 172 / 126 ( 148 ) @ 3:28:00 PM 130 / 100 ( 114 ) @ 4:04:00 PM Clinical Evaluation EBL: 5mL-10mL Procedural Details Pre-Procedure Time Out. Identified patient by full name and date of as verbalized by the patient/guarantor. Accurate & Complete Informed Consent: N/A Emergent; Informed Consent not obtained due to time critical life threat. Inpatient/Outpatient History & Physical on Chart: N/A Emergent; Informed Consent not obtained due to time critical life threat. Visualize and Verify Site with Patient/Guarantor: N/A. If H&P is completed, is and addenduem needed: N/A Emergent; Informed Consent not obtained due to time critical life threat; If yes, is the addendum complete: N/A Emergent; Informed Consent not obtained due to time critical life threat. Does the consent match the physician's order: N/A Emergent; Informed Consent not obtained due to time critical life threat. Relevant Radiology Images available: N/A Emergent; Informed Consent not obtained due to time critical life threat. Pre-op teaching completed and patient verbalized understanding. The risks, benefits, and alternatives of sedation and/or procedure were discussed by physician. The patient agrees to continue. Procedure started. HA Clinical Fraility Score: 4: Vulnerable. Lead Burner Helper Indications: ACS <= 24 hours. Chest Pain Symptom Assessment: Typical Angina Symptoms. Cardiovascular Instability: Yes, if yes, Persistant Ischemic Symptoms. Correct patient, site and procedure confirmed by cath team. Current diagnosis: STEMI. PERRLA. Strong, equal hand supervisor wash house bilaterally. Lungs clear x 5 lobes. A 18 gauge IV was started in the right anticubital using aseptic technique. IV Fluids: 0.9% NaCl at KVO. 0 mL infused prior to lab support tech. Pre Procedural Pulses: right radial was 3+. Oxygen started at 2liters/min via nasal canula. right groin was prepped with chloroprep then draped in the usual sterile fashion. right radial was prepped with chloroprep then draped in the usual sterile fashion. Baseline sample Acquired. HR: 82 BPM. Physician notified. Patient's family unavailable. Equipment: 6F - Radial. Cardiac Cath Pack. ACIST Manifold Kit Model BT 2000. Heparinized Saline (2 units/mL), 1000 mL bag. Physician arrived. Physician scrubbed in. Immediate Pre-Procedure Time Out. Correct Patient: Yes; Correct Procedure: N/A Emergent; Informed Consent not obtained due to time critical life threat; Correct Site: N/A Emergent; Informed Consent not obtained due to time critical life threat; Correct Patient Position: N/A Emergent; Informed Consent not obtained due to time critical life threat; Correct Supplies: N/A Emergent; Informed Consent not obtained due to time critical life threat; Dried Flammable Prep: N/A Emergent; Informed Consent not obtained due to time critical life threat; Blood Products Available: N/A Emergent; Informed Consent not obtained due to time critical life threat;. Lidocaine 1% infiltrated to the right radial. Current Diagnosis : STEMI. Arterial access obtained. A 5 afghan JR4 catheter in over the exchange J wire. Catheter removed over the exchange wire. PCI Indication: STEMI. 6 afghan XB 3 guide catheter was inserted over the wire. Multiple views of LCS. Patient's family updated. Runthrough guidewire was advanced through the guide catheter to lesion in the mid Circ, wire parked in OM. Balloon inserted to lesion in the mid Circ. Add inventory:Co-building mechanic, endoflator. Inflation number : 1 A AB TREK 2.75X15 RX BALLOON was prepped and advanced across the Mid CX , then inflated to 10 BRIEN for 0:12 seconds. Inflation number: 2 The AB TREK 2.75X15 RX BALLOON was reinflated across the Mid CX, to 12 BRIEN for 0:08 seconds. Balloon out. Results checked. PCI Indication : Immediate PCI for STEMI. Inflation Number : 3 A T R KIM 3.0X26 KAMINI -Lot Number# [id number] Exp. 30 was prepped and advanced across the Mid CX. The stent was deployed at 12 BRIEN for 0:12 seconds. Stent balloon out over wire. Results checked. Runthrough guidewire redirected distal to the lesion in the Diagonal. Inflation number: 1 The AB TREK 2.75X15 RX BALLOON was reinflated across the 1st Diag, to 10 BRIEN for 0:07 seconds. Inflation number: 2 The AB TREK 2.75X15 RX BALLOON was reinflated across the 1st Diag, to 8 BRIEN for 0:07 seconds. Inflation number: 3 The AB TREK 2.75X15 RX BALLOON was reinflated across the 1st Diag, to 12 BRIEN for 0:09 seconds. Balloon out. Results checked. Runthrough #2 guidewire was advanced through the guide catheter. Unable to cross the lesion in the mid LAD. The patients spouse, Flores, was updated by Jina Aguilar RN. Runthrough #2 out. Refinery Operator Crude Unit 50 guidewire was advanced through the guide catheter. Unable to cross the lesion in the mid LAD. Refinery Operator Crude Unit 50 out. Runthrough # 2 guidewire was advanced through the guide catheter to lesion in the mid LAD. Inflation number : 1 A AB TREK 2.50X15 RX BALLOON was prepped and advanced across the Mid LAD , then inflated to 14 BRIEN for 0:13 seconds. Inflation number: 2 The AB TREK 2.50X15 RX BALLOON was reinflated across the Mid LAD, to 14 BRIEN for 0:09 seconds. Balloon out. Results checked. Inflation number: 4 The AB TREK 2.50X15 RX BALLOON was reinflated across the 1st Diag, to 12 BRIEN for 0:10 seconds. Inflation number: 5 The AB TREK 2.50X15 RX BALLOON was reinflated across the 1st Diag, to 12 BRIEN for 0:10 seconds. Inflation number: 6 The AB TREK 2.50X15 RX BALLOON was reinflated across the 1st Diag, to 12 BRIEN for 0:09 seconds. Inflation number: 7 The AB TREK 2.50X15 RX BALLOON was reinflated across the 1st Diag, to 12 BRIEN for 0:07 seconds. Balloon out. Results checked. Inflation number : 8 A MDT NC EUPHORA RX 2.28T95CZ BALLOON was prepped and advanced across the 1st Diag , then inflated to 16 BRIEN for 0:19 seconds. Inflation number: 9 The MDT NC EUPHORA RX 2.61L56QW BALLOON was reinflated across the 1st Diag, to 16 BRIEN for 0:13 seconds. Balloon out. Runthrough #1 out. NC Euphora 2.75mm x 15mm in, unable to cross mid LAD. Removed. Guideliner in OTW. Inflation number: 3 The MDT NC EUPHORA RX 2.93P71QE BALLOON was reinflated across the Mid LAD, to 16 BRIEN for 0:13 seconds. Inflation number: 4 The MDT NC EUPHORA RX 2.12D21JE BALLOON was reinflated across the Mid LAD, to 12 BRIEN for 0:10 seconds. Inflation number: 5 The MDT NC EUPHORA RX 2.33B66LN BALLOON was reinflated across the Mid LAD, to 18 BRIEN for 0:12 seconds. Results checked. Balloon out. Guideliner out OTW. Runthrough #1 guidewire was advanced through the guide catheter to lesion in the diaganol. Inflation Number : 10 A MDT R KIM 2.75X22 KAMINI -Lot Number# [id number] Exp. was prepped and advanced across the 1st Diag. The stent was deployed at 14 BRIEN for 0:17 seconds. Stent balloon pulled back into the guide cath. Inflation number : 6 A MDT NC EUPHORA RX 2.09V88ER BALLOON was prepped and advanced across the Mid LAD , then inflated to 16 BRIEN for 0:19 seconds. Stent balloon out over wire. Inflation number: 7 The MDT NC EUPHORA RX 2.46G71BH BALLOON was reinflated across the Mid LAD, to 16 BRIEN for 0:14 seconds. Inflation number: 8 The MDT NC EUPHORA RX 2.72E43XF BALLOON was reinflated across the Mid LAD, to 16 BRIEN for 0:08 seconds. Balloon out. Results checked. Runthrough #1 out. MDT R KIM 3.0mm x 22mm stent in, unable to cross Mid LAD, removed intact. Guideliner in OTW. Inflation Number : 9 A MDT R KIM 3.0X22 KAMINI -Lot Number# [id number] Exp. was prepped and advanced across the Mid LAD. The stent was deployed at 12 BRIEN for 0:16 seconds. Stent balloon and wire out. Inflation number : 10 A MDT NC EUPHORA RX 3.31H57WK BALLOON was prepped and advanced across the Mid LAD , then inflated to 18 BRIEN for 0:09 seconds. Inflation number: 11 The MDT NC EUPHORA RX 3.61V55BR BALLOON was reinflated across the Mid LAD, to 18 BRIEN for 0:07 seconds. Inflation number: 12 The MDT NC EUPHORA RX 3.60E07KT BALLOON was reinflated across the Mid LAD, to 18 BRIEN for 0:06 seconds. Balloon out. Guideliner out OTW. ACT drawn. Results out of range HI. Will redraw. Results checked. Wire out. Results checked. Guide catheter out over the exchange J wire. A 5 afghan JR4 catheter in over the standard J wire. Multiple views taken of right coronary artery. Catheter removed over the exchange J wire. ACT drawn. Results seconds. Therapeutic limits - pre-heparin administration 90-150 seconds and monitoring heparin during a vascular procedure >[address] Breswter scrubbed out. A TR Band was successful obtaining hemostatsis at the Right Radial artery insertion site. Vital chart was stopped. Post Procedure: Pulses reassessed and unchanged. PERRLA. Strong, equal hand supervisor wash house bilaterally. No VTE prophylaxis required. Medication's Wasted: Lidocaine 1% = 18 mL. Medication's Wasted: Nitro = 49.6 mg. Medication's Wasted: Heparin = 3000 units. Medication's Wasted: Other = Benadryl 25 mg. Total IV fluids: 100 mL. Post-op diagnosis: KAMINI x 1 to mid CX, KAMINI x 1 to Mid LAD, KAMINI x 1 to 1st diagonal. Complications: none. Estimated blood loss: 5mL-10mL. Responsiveness - Normal response to verbal stimuli; alert and oriented, PERRLA. Airway - Unaffected, no intervention required; spontaneous ventilation. Circulation: W/N/L, pulses unchanged. Nausea/Vomiting: No. Procedure completed. Patient transferred by bed to ICU. Access Site Site: Right Radial artery Sheath Size: 6 Fr Hemostasis Method: TR Band Hemostasis Success: Successful Procedure Medications Start: 1:33 PM Stop: 1:33 PM Medication: Versed Amount: 1 mg Route: I.V. Start: 1:33 PM Stop: 1:33 PM Medication: Fentanyl Amount: 50 mcg Route: I.V. Start: 1:37 PM Stop: 1:37 PM Medication: Versed Amount: 1 mg Route: I.V. Start: 1:38 PM Stop: 1:38 PM Medication: Nitrogylcerin Amount: 200 mcg Route: I.A. Start: 1:44 PM Stop: 1:44 PM Medication: Heparin Amount: 33693 units Start: 1:54 PM Stop: 1:54 PM Medication: Versed Amount: 1 mg Route: I.V. Start: 2:01 PM Stop: 2:01 PM Medication: Versed Amount: 1 mg Route: I.V. Start: 2:09 PM Stop: 2:09 PM Medication: Fentanyl Amount: 25 mcg Route: I.V. Start: 2:11 PM Stop: 2:11 PM Medication: Heparin Amount: 2000 units Route: I.V. Start: 2:19 PM Stop: 2:19 PM Medication: Benadryl Amount: 25 mg Route: I.V. Start: 2:22 PM Stop: 2:22 PM Medication: Fentanyl Amount: 25 mcg Route: I.V. Start: 2:43 PM Stop: 2:43 PM Medication: Versed Amount: 1 mg Route: I.V. Start: 2:49 PM Stop: 2:49 PM Medication: Versed Amount: 1 mg Route: I.V. Start: 2:49 PM Stop: 2:49 PM Medication: Heparin Amount: 1000 units Route: I.V. Start: 3:06 PM Stop: 3:06 PM Medication: Nitrogylcerin Amount: 200 mcg Route: I.C. I, the attending physician, have reviewed and verified all procedure medications. Yes, all medications given per verbal order History/Risk Factors Obesity: Yes Report Signatures Finalized by Bob Brewster MD on 06/07/2025 04:31 PM
--- NOTE | 2025-06-07 13:19 | P.HP_ITS ---
<Statement entered by Bob Brewster M.D - 06/10/25 11:50> Patient was evaluated and cared for in conjunction with an advanced practice practitioner.? I personally examined the patient and reviewed the chart and all pertinent data including imaging, telemetry, and laboratory results.? I discussed the patient in detail with the advanced practice practitioner.? Please see? their note for complete H&P, testing results and agreed upon plan of care for the patient. GENERAL: Patient is alert, awake and oriented x3. HEART: Regular S1 and S2 LUNGS: Clear to auscultate bilaterally. CENTRAL NERVOUS SYSTEM: Grossly nonfocal. EXTREMITIES: Lower extremities without edema bilaterally. Providers/Chief Complaint 2 Admitting Physician: Dr Brewster, interventional cardiology Primary Care Provider: Deon Abebe MD Chief Complaint: Pain in chest History of Present Illness Bk Almaraz is a 59 year old male with past medical history of hypertension, obstructive sleep apnea, history of renal carcinoma s/p radical nephrectomy in 2022, intracranial metastatic disease s/p radiation to right frontal lobe 2023, follows with oncology here. He presented to the emergency room with chest pain, beginning about 1 1/2 hours ago after going to his appointment at the cancer center. He waited a while to see if the pain would go away before coming in, felt nauseous when he came to the ER. Chest pain initially more severe, now 7- 8/10, in the center chest to right of sternum. EKG demonstrated sinus rhythm with ST elevation in the lateral leads, with reciprocal changes in the inferior leads. Review of Systems 2 Const: Denies: fever(s), chills, change in weight, fatigue or diaphoresis Eyes: Denies: change in vision ENMT: Denies: epistaxis Card: Reports: chest pain; Denies: palpitations, irregular heart rhythm, edema, syncope, pre-syncope, dyspnea on exertion, orthopnea or leg pain with exertion Resp: Denies: dyspnea, productive cough or wheezing GI: Reports: nausea; Denies: vomiting, hematemesis, hematochezia or melena : Denies: hematuria Musc: Denies: extremity swelling Afshin/Lymph: Denies: easy bruising or easy bleeding Medications/Allergies Home Medications ?Medication ?Instructions ?Recorded ?Confirmed ?Last Taken ?Type albuterol sulfate 90 mcg/actuation 2 puff inhalation Q 6H PRN 05/03/20 06/07/25 12/07/24 History aerosol inhaler (ProAir HFA) Shortness Of Breath cetirizine 10 mg tablet (Zyrtec) 10 mg PO DAILY PRN Al lergy Symptoms 05/22/23 06/07/25 12/20/24 History blood sugar diagnostic (OneTouch #100 ea 11/22/2302/24 Unknown Rx Ultra Test strips) blood-glucose meter (OneTouch #1 ea 11/22/23 06/07/25 Unknown Rx Ultra2 Meter) hydrocodone 5 mg-acetaminophen 325 1 tab PO Q6H PRN pa in #16 tabs 12/21/24 06/07/25 Unknown Rx mg tablet Cam Boot #1 ea 12/23/24 06/07/25 Unkn own Rx cephalexin 500 mg capsule 500 mg PO TID #21 caps 12/2806/07/25 Unknown Rx sulfamethoxazole 800 1 tab PO BID #14 tabs 06/07/25 Unknown Rx mg-trimethoprim 160 mg tablet (Bactrim DS) cholecalciferol (vitamin D3) 125 125 mcg PO DAILY #30 caps 02/19/25 06/07/25 Unknown Rx mcg (5,000 unit) capsule CPAP mask and supplies #1 ea 04/21/25 06/07/25 Unkn own Rx budesonide-formoterol HFA 160 2 puff inhalation BID se e pharmacy 05/10/25 06/07/25 Unknown Rx mcg-4.5 mcg/actuation aerosol comment #30.6 grams inhaler (Symbicort) terazosin 10 mg capsule 10 mg PO DAILY #90 caps 04/2606/07/25 Unknown Rx hydrochlorothiazide 25 mg tablet 25 mg PO DAILY #90 ta bs 05/11/25 06/07/25 Unknown Rx lansoprazole 30 mg capsule,delayed See Rx Instructions .Route 05/11/25 06/07/25 Unknown Rx release .COMPLEX #30 caps prednisone 10 mg tablet See Rx Instructions .Route 0 05/11/25 06/07/25 Unknown Rx .COMPLEX #30 tabs Allergies Allergy/AdvReac Type Severity Reaction Status Date / Time No Known Allergies Allergy Verified 06/07/25 10:56 PFSH Acute 2 PFSH: Medical History Psychiatric care Clear cell carcinoma of right kidney Dr Magana - [facility] Bacteremia due to group B Streptococcus Cellulitis GERD (gastroesophageal reflux disease) Hypertension Erectile dysfunction Surgical History Hx of brain surgery mass in his brain removed from the parietal region on the right. 01/29/2024 - renal cell carcinoma History of nephrectomy, right Hx of tonsillectomy H/O arthroscopic knee surgery Family History Father , AT AGE 84 Hypertension Lung disease Mother , at age 84 Lung disease Congestive heart failure (CHF) Social History Smoking and tobacco/nicotine status: former use of tobacco/nicotine Quit status (tobacco/nicotine): has quit using Year quit tobacco: 2014 Former quit date comment: Smoked for 40 years. 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 Pets and animals: No Leisure activites: volunteer work Sexually active: No Do you think of yourself as: Straight/Heterosexual Current gender identity: Male Latia/Yazidi: Mosque Special latia needs: No Agree to transfusion: Yes Vitals/I&O/Wt Last Vital Signs Pulse 85 06/07/25 12:58 Resp 20 H 06/07/25 12:58 Pulse Ox 97 06/07/25 12:58 O2 Del Method Room Air 06/07/25 12:58 Weight last 48 hrs Weight 400 lb Physical Exam 2 Const: COMMON NORMALS: no acute distress and patient oriented x3 GENERAL APPEARANCE: cooperative and comfortable ORIENTATION/CONSCIOUSNESS: Yes awake, Yes oriented to person, Yes oriented to place and Yes oriented to time Chest: COMMONS NORMALS: normal inspection of the chest and normal palpation of entire chest wall CHEST: Yes Symmetrical chest wall rise Resp: COMMON NORMALS: normal respiratory effort, No retractions, No use of accessory muscles and clear to auscultation bilaterally EFFORT & INSPECTION: Yes symmetric chest movement AUSCULTATION: clear to auscultation bilaterally Cardio: COMMON NORMALS: regular rate, regular rhythm, S1 normal heart sound present, S2 normal heart sound present, No gallops present (Cardio), No clicks present (Cardio), No murmurs present (Cardio) and No rub (Cardio) RATE: r egular rate RHYTHM: regular rhythm HEART SOUNDS: S1 normal heart sound present and S2 normal heart sound present PERIPHERAL PULSES: radial pulses present Extremity: COMMON NORMALS: no pedal edema Neuro: COMMON NORMALS: patient oriented x3 and moves all extremities S ENSORIUM/ORIENTATION: Yes oriented to person, Yes oriented to place and Yes oriented to time Data 06/07/25 13:13 06/07/25 13:13 A&P Assessment and plan 1. ST elevation myocardial infarction (STEMI): 2. Hypertension: 3. Clear cell carcinoma of right kidney: 4. 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 Visipaque contrast to be used to minimize impact on solitary kidney. 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
[2025-06-07] MEDS: heparin 5,000 unit/mL INJ 1 mL 4000 UNIT IVP (13:21)
[2025-06-07 13:24] LABS: Hematocrit 45.7 % (37-53); Hemoglobin 15.70 g/dL (11.27-16.99); Mean Corpuscular HGB Conc 34.4 g/dL (30-55); Mean Corpuscular Hemoglobin 29.8 pg (27-33); Mean Corpuscular Volume 86.7 fl (82-101); Nucleated Red Blood Cells % 0 %; Platelet Count 231 10^3/cmm (157-399); Red Blood Count 5.27 10^6/uL (3.85-5.65); White Blood Count 9.57 10^3/uL (3.29-11.43)
--- NOTE | 2025-06-07 13:24 | PC.NURSE ---
PT BELONGINGS SENT WITH PT TO [facility].
[2025-06-07 13:45] LABS: Troponin(5th) Baseline 11 ng/L (0-15)
[2025-06-07 13:56] LABS: Alanine Aminotransferase 18 U/L (0-41); Albumin Level 4.6 g/dL (3.5-5.2); Alkaline Phosphatase 113 U/L (40-130); Anion Gap 20.2 (5-19); Aspartate Amino Transferase 15 U/L (0-40); Blood Urea Nitrogen 16 mg/dL (8-23); Calcium 9.9 mg/dL (8.5-10.5); Carbon Dioxide 20 mmol/L (22-29); Chloride 98 mmol/L (98-107); Creatinine Clr Calc Pharmacy 116.0809; Globulin 2.4 g/dL (1.3-4.6); Glucose 186 mg/dL (65-115); Osmolality Calculated 284 mOsm/kg (285-295); Potassium 4.2 mmol/L (3.5-5.1); Sodium 134 mmol/L (136-145); Total Protein 7.0 g/dL (6.6-8.7)
--- NOTE | 2025-06-07 15:39 | PC.NURSE ---
arrived from labor and delivery nurse, ao x4, tr band to R wrist clean dry and intact
--- NOTE | 2025-06-07 17:09 | ECG_ITS ---
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 Measurements Intervals [place] Rate: 71 P: 54 MO: 224 QRS: 56 QRSD: 100 T: 102 QT: 387 QTc: 423 Interpretive Statements SINUS RHYTHM WITH SINUS ARRHYTHMIA WITH FIRST DEGREE AV BLOCK LOW QRS VOLTAGE IN PRECORDIAL LEADS [QRS DEFLECTION < 1.0 mV IN CHEST LEADS] SEPTAL MYOCARDIAL INFARCTION , OF INDETERMINATE AGE [40+ ms Q WAVE IN V1/V2] Compared to ECG 06/07/2025 13:12:14 First degree AV block now present Myocardial infarct finding now present Electronically Signed On 06-07-2025 23:29:28 CDT by Rosie Barnard M.D. [email or web address]
[2025-06-07] MEDS: metoprolol succinate ER (24 HR) 25 mg Tablet PO (18:08)
[2025-06-08] VITALS (21 sets, daily range): BP systolic 93–145; BP diastolic 48–92; PULSE 54–69; RESP 12–25; TEMP 36.4–36.6; O2SAT 95–99
[2025-06-08 04:21] LABS: Hematocrit 42.4 % (37-53); Hemoglobin 14.40 g/dL (11.27-16.99); Mean Corpuscular HGB Conc 34.0 g/dL (30-55); Mean Corpuscular Hemoglobin 29.6 pg (27-33); Mean Corpuscular Volume 87.2 fl (82-101); Nucleated Red Blood Cells % 0 %; Platelet Count 226 10^3/cmm (157-399); Red Blood Count 4.86 10^6/uL (3.85-5.65); White Blood Count 9.22 10^3/uL (3.29-11.43)
[2025-06-08] MEDS: metoprolol succinate ER (24 HR) 25 mg Tablet PO (04:24)
[2025-06-08 04:44] LABS: Anion Gap 14.8 (5-19); Blood Urea Nitrogen 15 mg/dL (8-23); Calcium 9.7 mg/dL (8.5-10.5); Carbon Dioxide 26 mmol/L (22-29); Chloride 99 mmol/L (98-107); Creatinine Clr Calc Pharmacy 98.4124; Glucose 97 mg/dL (65-115); Osmolality Calculated 283 mOsm/kg (285-295); Potassium 3.8 mmol/L (3.5-5.1); Sodium 136 mmol/L (136-145)
--- NOTE | 2025-06-08 08:29 | P.PN_ITS ---
<Statement entered by Bob Brewster M.D - 06/10/25 11:51> Patient was cared for in conjunction with an advanced practice practitioner.? I reviewed the chart and all pertinent data including imaging, telemetry, and laboratory results.? I discussed the patient in detail with the advanced practice practitioner.? Please see?their note for progress note, testing results and agreed upon plan of care for the patient. Subjective 2 Subjective: Had a short run of VT last night. No chest pain. Cath site ok. Creatinine 1.3 today. Vitals/I&O/Wt Last Vital Signs Temp 97.8 F 06/08/25 07:50 Pulse 62 06/08/25 06:00 Resp 16 06/08/25 01:00 BP 122/63 06/08/25 01:00 Pulse Ox 97 06/08/25 01:00 O2 Del Method Room Air 06/08/25 00:00 06/07/25 06/08/25 06/08/25 22:59 06:59 14:59 Intake Total 810 / 2550 1740 / 2550 Output Total 1650 / 2250 600 / 2250 200 / 200 Balance -840 / 300 1140 / 300 -200 / -200 Weight last 48 hrs Weight 396 lb 13.313 oz Weight 401 lb 3.861 oz Weight 400 lb Physical Exam 2 Const: COMMON NORMALS: no acute distress and patient oriented x3 GENERAL APPEARANCE: cooperative ORIENTATION/CONSCIOUSNESS: Yes awake, Yes oriented to person, Yes oriented to place and Yes oriented to time Chest: COMMONS NORMALS: normal inspection of the chest and normal palpation of entire chest wall CHEST: Yes Symmetrical chest wall rise Resp: COMMON NORMALS: normal respiratory effort, No retractions, No use of accessory muscles and clear to auscultation bilaterally AUSCULTATION: clear to auscultation bilaterally Cardio: COMMON NORMALS: regular rate, regular rhythm, S1 normal heart sound present, S2 normal heart sound present, No gallops present (Cardio), No clicks present (Cardio), No murmurs present (Cardio) and No rub (Cardio) RATE: r egular rate RHYTHM: regular rhythm HEART SOUNDS: S1 normal heart sound present and S2 normal heart sound present PERIPHERAL PULSES: radial pulses present positive right 2+ and femoral pulses present positive right 2+ Extremity: GENERAL: Yes edema (1+ pitting, some non pitting edema LE bilat) Neuro: COMMON NORMALS: patient oriented x3 and moves all extremities S ENSORIUM/ORIENTATION: Yes oriented to person, Yes oriented to place and Yes oriented to time Skin: WOUNDS: Yes surgical site (no hematoma palpable) Details: no odor Data 06/08/25 03:51 06/08/25 03:51 A&P Assessment and plan 1. ST elevation myocardial infarction (STEMI): 2. Hypertension: Plan: Stable s/p revascularization of 1st diagonal, LAD and left circumflex. Plan to stage PCI to the RCA in one month. Continue aspirin, Plavix, metoprolol, statin. PDMP PDMP Reviewed: Not Reviewed Attestations 2 Medical Necessity Statement*: creatinine increased post PCI, STEMI Coding Level of Care Code Acute Code for [facility] Diagnoses ST elevation myocardial infarction (STEMI) I21.3 Hypertension I10
[2025-06-08 15:19] LABS: Anion Gap 15.1 (5-19); Blood Urea Nitrogen 14 mg/dL (8-23); Calcium 9.1 mg/dL (8.5-10.5); Carbon Dioxide 25 mmol/L (22-29); Chloride 98 mmol/L (98-107); Creatinine Clr Calc Pharmacy 97.7372; Glucose 147 mg/dL (65-115); NT Pro B Type Natriuretic Pept 1065 pg/mL (0-125); Osmolality Calculated 281 mOsm/kg (285-295); Potassium 4.1 mmol/L (3.5-5.1); Sodium 134 mmol/L (136-145)
--- NOTE | 2025-06-08 16:34 | USCV_ITS ---
SungBk morgan Age: 59 Gender: M : 1965 Exam Date: 06/08/2025 14:01 Ordering Phys: Nicolasa Morales Technologist: [place] [facility] [place]: nstimi BP: 128 / 69 HR: 66 Rhythm: Sinus Technical Quality: suboptimal MEASUREMENTS (Male / Female) Normal Values 2D ECHO LV Diastolic Diameter PLAX 4.4 cm 4.2 - 5.9 / 3.9 - 5.3 cm IVS Diastolic Thickness 1.5 cm 0.6 - 1.0 / 0.6 - 0.9 cm IVS Systolic Thickness 2.2 cm LVPW Diastolic Thickness 1.6 cm 0.6 - 1.0 / 0.6 - 0.9 cm LVPW Systolic Thickness 2.0 cm LVOT Diameter 2.1 cm LV Ejection Fraction 2D Teich 60.9 % LV Ejection Fraction MOD 4C 61.1 % LV Ejection Fraction MOD 2C 68.0 % LV Ejection Fraction 2C AL 71.3 % LA Diameter 4.8 cm RA Systolic Volume 4C AL 68.2 ml RA Systolic Volume 4C MOD 61.6 ml Aorta at Sinotubular Diameter 2.9 cm M-MODE LA Ao Ratio MM 1.4 AV Cusp Separation MM 2.3 cm DOPPLER AV Peak Velocity 135.0 cm/s LVOT Peak Velocity 83.0 cm/s AV Area Cont Eq vti 3.0 cm squared AV Area Cont Eq pk 2.2 cm squared MV Peak Velocity 108.0 cm/s MV Area PHT 3.7 cm squared Mitral E to A Ratio 1.5 TV Peak Velocity 161.0 cm/s TR Peak Velocity 187.0 cm/s TR Peak Gradient 14.0 mmHg TV Peak E Velocity 92.0 cm/s PV Peak Velocity 120.0 cm/s FINDINGS Left Ventricle Normal left ventricular size, systolic function and wall thickness, with no regional wall motion abnormalities. Left ventricular ejection fraction is estimated at 60 %. Grade I/IV diastolic dysfunction (abnormal relaxation filling pattern), normal to mildly elevated filling pressures. Right Ventricle Normal right ventricular size and systolic function. Right Atrium Normal right atrial size. Left Atrium Normal left atrial size. IA Septum Normal appearance of the interatrial septum. Mitral Valve Moderately thickened mitral valve. Moderate mitral annular calcification. No mitral valve stenosis. Trace mitral valve regurgitation. Aortic Valve Moderate aortic valve calcification. No aortic valve stenosis. Trace aortic valve regurgitation. Tricuspid Valve Normal tricuspid valve structure. No tricuspid valve stenosis or regurgitation. Normal pulmonary pressure. Pulmonic Valve Normal pulmonic valve structure. No pulmonic valve stenosis or regurgitation. Pericardium No pericardial effusion. Aorta Normal diameter of the aortic root and ascending thoracic aorta. IVC Inferior vena cava not visualized. CONCLUSIONS Normal left ventricular size, systolic function and wall thickness, with no regional wall motion abnormalities. Left ventricular ejection fraction is estimated at 60 %. Grade I/IV diastolic dysfunction (abnormal relaxation filling pattern), normal to mildly elevated filling pressures. Moderately thickened mitral valve. Moderate mitral annular calcification. No mitral valve stenosis. Trace mitral valve regurgitation. Moderate aortic valve calcification. No aortic valve stenosis. Trace aortic valve regurgitation. There is no pericardial effusion. Attila Lao MD (Electronically Signed) Final Date: 08 June 2025 14:53 S
[2025-06-09 03:53] LABS: Hematocrit 41.7 % (37-53); Hemoglobin 14.30 g/dL (11.27-16.99); Mean Corpuscular HGB Conc 34.3 g/dL (30-55); Mean Corpuscular Hemoglobin 29.7 pg (27-33); Mean Corpuscular Volume 86.7 fl (82-101); Nucleated Red Blood Cells % 0 %; Platelet Count 228 10^3/cmm (157-399); Red Blood Count 4.81 10^6/uL (3.85-5.65); White Blood Count 8.37 10^3/uL (3.29-11.43)
[2025-06-09 04:15] LABS: Anion Gap 16.8 (5-19); Blood Urea Nitrogen 14 mg/dL (8-23); Calcium 9.5 mg/dL (8.5-10.5); Carbon Dioxide 24 mmol/L (22-29); Chloride 98 mmol/L (98-107); Creatinine Clr Calc Pharmacy 90.7560; Glucose 107 mg/dL (65-115); Osmolality Calculated 281 mOsm/kg (285-295); Potassium 3.8 mmol/L (3.5-5.1); Sodium 135 mmol/L (136-145)
[2025-06-09] MEDS: metoprolol succinate ER (24 HR) 25 mg Tablet PO (04:35)
[2025-06-09 04:37] VITALS: TEMP 36.8
--- NOTE | 2025-06-09 08:50 | P.DS_ITS ---
<Statement entered by Bob Brewster M.D - 06/10/25 11:54> Patient was cared for in conjunction with an advanced practice practitioner.? I reviewed the chart and all pertinent data including imaging, telemetry, and laboratory results.? I discussed the patient in detail with the advanced practice practitioner.? Please see?their note for discharge summary, testing results and agreed upon plan of care for the patient. Discharge Providers Date of Admission: 06/07/25 15:23 Date of Discharge: June 09, 2025 Attending Provider at Admission: Bob Brewster M.D Attending Provider at Discharge: Bob Brewster M.D Primary Care Provider: Deon Abebe MD Diagnoses at Discharge Discharge Diagnosis 1. ST elevation myocardial infarction (STEMI): 2. 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 He presented to the emergency room with chest pain, beginning about 1 1/2 hours ago after going to his appointment at the cancer center. He waited a while to see if the pain would go away before coming in, felt nauseous when he came to the ER. Chest pain initially more severe, now 7- 8/10, in the center chest to right of sternum. EKG demonstrated sinus rhythm with ST elevation in the lateral leads, with reciprocal changes in the inferior leads. Hospital Course Hospital Course He was taken emergently to the Report Manager revealing severe stenosis of the mid to distal RCA, total occlusion of the PLV branch with [id number] collaterals, total thrombotic occlusion of the first diagonal (culprit vessel), proximal-mid LAD stenosis, mid circumflex stenosis, right posterior AV total occlusion. He underwent KAMINI x 1 to the mid circumflex, KAMINI x 1 to the mid LAD, KAMINI x 1 to the first diagonal. ALEXIS-3 flow in all vessels. Plan is to perform staged PCI of the RCA in 1 month. No recurrence of chest pain overnight or this morning. He received IV fluids during the day yesterday, however began to report increased lower extremity edema and pain in the legs from fluid. BMP and BNP were checked, yesterday creatinine 1.3 and BNP 1065. At the patient's request IV fluids were held for possible volume overload. Creatinine was rechecked this morning and was 1.4. He was offered the option to stay for slow IV hydration to reduce creatinine, however patient opted to go home and was counseled to increase oral fluid intake. Will have him repeat BMP as an outpatient on Saturday to recheck creatinine. No complications with right radial cath site. Discussed with him the importance of taking aspirin and Plavix every day and not missing a single dose, he indicated understanding. Meds to beds request completed. Continue metoprolol succinate 25 mg daily, atorvastatin 80 mg daily. LVEF was 60% on echocardiogram obtained yesterday, no significant valvular abnormalities. Follow-up in the cardiology clinic in 2 weeks, will discuss planning of staged PCI at that visit. Physical Exam Const: COMMON NORMALS: no acute distress and patient oriented x3 GENERAL APPEARANCE: cooperative ORIENTATION/CONSCIOUSNESS: Yes awake, Yes oriented to person, Yes oriented to place and Yes oriented to time Chest: COMMONS NORMALS: normal inspection of the chest and normal palpation of entire chest wall CHEST: Yes Symmetrical chest wall rise Resp: COMMON NORMALS: normal respiratory effort, No retractions, No use of accessory muscles and clear to auscultation bilaterally AUSCULTATION: clear to auscultation bilaterally Cardio: COMMON NORMALS: regular rate, regular rhythm, S1 normal heart sound present, S2 normal heart sound present, No gallops present (Cardio), No clicks present (Cardio), No murmurs present (Cardio) and No rub (Cardio) RATE: regular rate RHYTHM: regular rhythm HEART SOUNDS: S1 normal heart sound present and S2 normal heart sound present PERIPHERAL PULSES: radial pulses present positive right 2+ and femoral pulses present positive right 2+ Neuro: COMMON NORMALS: patient oriented x3 and moves all extremities SENSORIUM/ORIENTATION: Yes oriented to person, Yes oriented to place and Yes oriented to time Skin: WOUNDS: Yes surgical site (no hematoma palpable) Details: no odor Discharge Data Studies Completed and Pending Completed Studies During Hospitalization Category Date Time Status 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 echo complete* [id number] Routine Ultrasound 06/08/25 16:34 Completed Pending at discharge Category Date Time Status Basic Metabolic Panel AM LABS Lab 06/10/25 04:00 Ordered Complete Blood Count w/Auto AM LABS Lab 06/10/25 04:00 Ordered Radiology Impressions Chest X-Ray 06/07/25 12:47 Impression: Cardiomegaly and atherosclerosis. Laboratory Results WBC 8.37 10^3/uL (3.29-11.43) 06/09/25 03:13 RBC 4.81 10^6/uL (3.85-5.65) 06/09/25 03:13 Hgb 14.30 g/dL (11.27-16.99) 06/09/25 03:13 Hct 41.7 % (37-53) 06/09/25 03:13 MCV 86.7 fl (82-101) 06/09/25 03:13 MCH 29.7 pg (27-33) 06/09/25 03:13 MCHC 34.3 g/dL (30-55) 06/09/25 03:13 RDW 15.1 % (12.1-15.1) 06/09/25 03:13 Plt Count 228 10^3/cmm (157-399) 06/09/25 03:13 MPV 9.1 fL (7.4-10.4) 06/09/25 03:13 Neut % (Auto) 63.7 % 06/09/25 03:13 Lymph % (Auto) 23.2 % 06/09/25 03:13 Rice % (Auto) 9.3 % 06/09/25 03:13 Eos % (Auto) 1.6 % 06/09/25 03:13 Baso % (Auto) 0.8 % 06/09/25 03:13 Neut # (Auto) 5.33 10^3/uL (1.8-7.7) 06/09/25 03:13 Lymph # (Auto) 1.9 10^3/uL (0.8-4.8) 06/09/25 03:13 Rice # (Auto) 0.8 10^3/uL (0.2-0.9) 06/09/25 03:13 Eos # (Auto) 0.1 10^3/uL (0.0-0.8) 06/09/25 03:13 Baso # (Auto) 0.1 10^3/uL (0.0-0.1) 06/09/25 03:13 Nucleated RBC % (auto) 0 % 06/09/25 03:13 Nucleated RBCs # 0.0 /100WBC 06/09/25 03:13 Sodium 135 mmol/L (136-145) L 06/09/25 03:13 Potassium 3.8 mmol/L (3.5-5.1) 06/09/25 03:13 Chloride 98 mmol/L (98-107) 06/09/25 03:13 Carbon Dioxide 24 mmol/L (22-29) 06/09/25 03:13 Anion Gap 16.8 (5-19) 06/09/25 03:13 BUN 14 mg/dL (8-23) 06/09/25 03:13 Creatinine 1.4 mg/dL (0.7-1.2) H 06/09/25 03:13 GFR Calculation 51.5 mL/min (90-130) L 06/09/25 03:13 Glucose 107 mg/dL (65-115) 06/09/25 03:13 POC Glucose 131 mg/dL (70-110) H 06/08/25 04:28 Calculated Osmolality 281 mOsm/kg (285-295) L 06/09/25 03:13 Calcium 9.5 mg/dL (8.5-10.5) 06/09/25 03:13 Total Bilirubin 0.6 mg/dL (0.15-1.2) 06/07/25 13:13 AST 15 U/L (0-40) 06/07/25 13:13 ALT 18 U/L (0-41) 06/07/25 13:13 Alkaline Phosphatase 113 U/L (40-130) 06/07/25 13:13 Troponin T Baseline 11 ng/L (0-15) 06/07/25 13:13 NT-Pro-B Natriuret Pep 1065 pg/mL (0-125) H 06/08/25 14:38 Total Protein 7.0 g/dL (6.6-8.7) 06/07/25 13:13 Albumin 4.6 g/dL (3.5-5.2) 06/07/25 13:13 Globulin 2.4 g/dL (1.3-4.6) 06/07/25 13:13 Vitals Last Vital Signs Temp 98.3 F 06/09/25 04:37 Pulse 65 06/08/25 13:08 Resp 25 H 06/08/25 08:30 BP 145/57 06/08/25 08:00 Pulse Ox 98 06/08/25 09:49 O2 Del Method Room Air 06/08/25 09:49 Discharge Plan Discharge Patient Disposition: Home Condition: Stable Prescriptions: New atorvastatin 40 mg Tablet 80 mg PO BEDTIME Qty: 90 3RF clopidogrel 75 mg Tablet 75 mg PO DAILY Qty: 90 3RF aspirin 81 mg Tablet,Delayed Release (Dr/Ec) 81 mg PO DAILY Qty: 90 3RF pantoprazole 40 mg Tablet,Delayed Release (Dr/Ec) 40 mg PO DAILY Qty: 30 0RF metoprolol succinate 25 mg Tablet Extended Release 24 Hr 25 mg PO DAILY Qty: 180 3RF Continued cholecalciferol (vitamin D3) 125 mcg (5,000 unit) capsule 125 mcg PO DAILY Qty: 30 6RF cetirizine [Zyrtec] 10 mg tablet 10 mg PO QPM PRN (Reason: Allergy Symptoms) (DME) blood-glucose meter [[facility]2 Meter] [facility] See Rx Instructions .Route Qty: 1 0RF Rx Instructions: As directed (DME) OneTouch Ultra Test Strip See Rx Instructions .Route Qty: 100 2RF Rx Instructions: As directed - test glucose daily (DME) Cam Boot See Rx Instructions .Route .MEDSUPPLY Qty: 1 0RF Rx Instructions: As directed By Home (DME) CPAP mask and supplies See Rx Instructions .Route .MEDSUPPLY Qty: 1 0RF Rx Instructions: As directed azelastine 0.05 % drops 1 drp ophthalmic (eye) BID albuterol sulfate 90 mcg/actuation HFA aerosol inhaler 2 puff INHALATION Q6H terazosin 10 mg capsule 10 mg PO QPM budesonide-formoterol [Symbicort] 160-4.5 mcg/actuation HFA aerosol inhaler 2 puff INHALATION BID Held hydrochlorothiazide 25 mg tablet 25 mg PO DAILY Qty: 90 3RF Hold Instructions: Resume on 06/11/25. Discontinued lansoprazole 30 mg capsule,delayed release(DR/EC) See Rx Instructions .ROUTE .COMPLEX Qty: 30 6RF Dose Instruction: Take 1 capsule by mouth once daily Rx Instructions: Take 1 capsule by mouth once daily Discharge Order = DC NOW: Discharge Order (Routine); Ordered 06/09/25 Ordered By: Nicolasa Morales Other Ambulatory Orders: Basic Metabolic Panel (Routine) Timeframe: 2 Days Facility: [facility] - Location: Lab - Main Lab Ordered By: Nicolasa Morales Referrals: Bob Brewster M.D [Physician, Cardiology] - 06/14/25 2:45 pm Deon Abebe MD [Primary Care Provider, Family Practice] - 06/18/25 10:00 am Discharge Diet: Cardiac Discharge Activity: Increase activity as tolerated Patient Instructions: Metoprolol (By mouth) (Lopressor, Toprol XL), Aspirin (By mouth), Atorvastatin (By mouth), Clopidogrel (By mouth) (Plavix), Pantoprazole (By mouth) (Protonix), Heart Attack (DC), Coronary Angioplasty (DC), Heart Healthy Diet (DC), Coronary Intravascular Stent Placement (DC), Chest Pain Stoplight, Opioid Safety, Post Angiogram Home Care Instructions, Pain Management, Post Heart Attack Stoplight, Patient Portal & Antoni Instructions Activity Restrictions/Additional Instructions: No lifting over 5 pounds with right arm for 4 days. Have lab test (BMP) .Please bring order to main admissons in hospital for order for lab test . Discharge Date/Time: 06/09/25 09:58 Discharge Attestations Time Spent in Discharge Care*: less than 30 min Status at Discharge: Cognitive status at discharge: cognitively intact , Behavioral status at discharge: cooperative , Quality Metrics Clinical Quality Measures [ Acute Myocardial Infaction { Clinical Trial Participant: No; Contraindication to aspirin: None; Aspirin prescribed; Contraindication to statin: None; Statin prescribed; Contraindication to PCI: None; PCI performed;}] Coding Level of Care Code Acute Code for [facility] Diagnoses ST elevation myocardial infarction (STEMI) I21.3 Hypertension I10
[2025-06-09 09:55] VITALS: BP 145/57; PULSE 65; O2SAT 96
--- NOTE | 2025-06-09 10:09 | PC.NURSE ---
Patient was given all discharge instructions. Patient was given all prescriptions at bedside. All Ivs were discontinued. Patient was stable during discharge.
== END 2025-06-09 09:58 | disposition home or self-care (01) | DRG 322 ==
LOC: ER 13:22 → CCL 13:30 → ICU 15:23
PROVIDERS: Nurse Practitioner Family; Physician Assistant; Admitting Provider Internal Medicine; Emergency Provider Family Medicine; PCP Family Medicine; Visit Provider Internal Medicine
PROC: 0271366 Dilation of Coronary Artery, Two Arteries, Bifurcation, with Three Drug-eluting Intraluminal Devices, Percutaneous Approach (ICD-10-PCS; principal; 2025-06-07 13:25)
DX: I21.29 ST elevation (STEMI) myocardial infarction involving other sites (principal); C64.1 Malignant neoplasm of right kidney, except renal pelvis; C79.31 Secondary malignant neoplasm of brain; Z59.01 Sheltered homelessness; I10 Essential (primary) hypertension; G47.33 Obstructive sleep apnea (adult) (pediatric); K21.9 Gastro-esophageal reflux disease without esophagitis; R73.03 Prediabetes; N52.9 Male erectile dysfunction, unspecified; I25.10 Atherosclerotic heart disease of native coronary artery without angina pectoris; Z79.899 Other long term (current) drug therapy; Z90.5 Acquired absence of kidney; Z87.891 Personal history of nicotine dependence
CPT/HCPCS: 36415; 36416; 71045; 80048; 80053; 82962; 83880; 84484; 85025; 85347; 92928; 92929; 92941; 93005; 93306; 96374; 99152; 99153; 99285; C1725; C1769; C1874; C1887; C1894; J1200; J1644; J2250; J3010; J3490; J7030; J9999; Q9967

== ENCOUNTER 2025-06-11 08:27 | Outpatient (CLI) | payer OTHER, MEDICAID, SELFPAY ==
[2025-05-07 14:29] VITALS: BP 143/85; BMI 54.8
[2025-06-11 11:16] LABS: Anion Gap 16.8 (5-19); Blood Urea Nitrogen 12 mg/dL (8-23); Calcium 9.4 mg/dL (8.5-10.5); Carbon Dioxide 24 mmol/L (22-29); Chloride 100 mmol/L (98-107); Glucose 109 mg/dL (65-115); Osmolality Calculated 284 mOsm/kg (285-295); Potassium 3.8 mmol/L (3.5-5.1); Sodium 137 mmol/L (136-145)
== END 2025-06-11 08:28 | disposition home or self-care (01) ==
PROVIDERS: PCP Family Medicine; Visit Provider Nurse Practitioner Family
DX: N17.9 Acute kidney failure, unspecified (principal)
CPT/HCPCS: 36415; 80048

== ENCOUNTER → 2025-06-21 12:43 | Outpatient (BNVA) | payer OTHER, MEDICAID, SELFPAY ==
[2025-05-07 14:29] VITALS: BP 143/85; BMI 54.8
== END ==
PROVIDERS: PCP Family Medicine; Visit Provider Family Medicine
DX: R19.7 Diarrhea, unspecified (principal)
CPT/HCPCS: 87493

== ENCOUNTER 2025-06-25 09:01 | Outpatient (CLI) | payer OTHER, MEDICAID, SELFPAY ==
[2025-05-07 14:29] VITALS: BP 143/85; BMI 54.8
[2025-06-25 09:56] LABS: Anion Gap 15.0 (5-19); Blood Urea Nitrogen 19 mg/dL (8-23); Calcium 9.7 mg/dL (8.5-10.5); Carbon Dioxide 26 mmol/L (22-29); Chloride 100 mmol/L (98-107); Glucose 105 mg/dL (65-115); NT Pro B Type Natriuretic Pept 682 pg/mL (0-125); Osmolality Calculated 287 mOsm/kg (285-295); Potassium 4.0 mmol/L (3.5-5.1); Sodium 137 mmol/L (136-145)
== END 2025-06-25 09:02 | disposition home or self-care (01) ==
LOC: LAB 09:03
PROVIDERS: PCP Family Medicine; Visit Provider Internal Medicine
DX: I10 Essential (primary) hypertension (principal)
CPT/HCPCS: 36415; 80048; 83880

== ENCOUNTER 2025-07-12 05:44 | Outpatient (CLI) | payer OTHER, MEDICAID, SELFPAY ==
[2025-05-07 14:29] VITALS: BP 143/85; BMI 54.8
[2025-07-12] VITALS (43 sets, daily range): BP systolic 101–154; BP diastolic 55–93; PULSE 55–89; RESP 11–40; TEMP 36.6–36.9; O2SAT 94–100; BMI 58.8
[2025-07-12 06:39] LABS: Hematocrit 41.2 % (37-53); Hemoglobin 13.90 g/dL (11.27-16.99); Mean Corpuscular HGB Conc 33.7 g/dL (30-55); Mean Corpuscular Hemoglobin 29.1 pg (27-33); Mean Corpuscular Volume 86.4 fl (82-101); Nucleated Red Blood Cells % 0 %; Platelet Count 237 10^3/cmm (157-399); Red Blood Count 4.77 10^6/uL (3.85-5.65); White Blood Count 7.21 10^3/uL (3.29-11.43)
[2025-07-12 07:05] LABS: Anion Gap 16.5 (5-19); Blood Urea Nitrogen 17 mg/dL (8-23); Calcium 9.6 mg/dL (8.5-10.5); Carbon Dioxide 23 mmol/L (22-29); Chloride 100 mmol/L (98-107); Glucose 100 mg/dL (65-115); Osmolality Calculated 284 mOsm/kg (285-295); Potassium 3.5 mmol/L (3.5-5.1); Sodium 136 mmol/L (136-145)
--- NOTE | 2025-07-12 10:00 | XACV_ITS ---
Exam Room: 2 Ht: 178 cm Wt: 186 kg BSA: 3.14 m2 Gender: Male : 1965 Any Known Allergies: No known allergies Exam Priority: Routine Procedure(s): Procedure Description: Diagnostic procedure Procedure Description: PCI procedure Procedure Description: Drug Eluting Coronary Stent Procedure Description: PTCA Procedure Description: Miscellaneous Procedure Description: ACT Procedure Description: Coronary Angiography Diagnostic Cath Status: Elective Diagnostic Findings * Left system not injected as this is a staged PCI of RCA. * Mid Right Coronary Artery: Severe 80-90% stenosis, ALEXIS: 3 flow. PCI Status: Elective PCI Indication: Staged PCI Interventional Findings * Mid Right Coronary Artery: 80-90% stenosis treated with a AB TREK 3.00X12 RX BALLOON, COREY R KIM 3.0X15 KAMINI, and COREY REBOLLEDO EUPHORA RX [id number] BALLOON. 0% residual stenosis, ALEXIS: 3 flow. * Procedure detail: We engaged RCA with JR4 guide catheter. Run-through wire was used to cross the stenosis. We predilated the stenosis with 3.0 x 12 mm semicompliant balloon. This was followed by placement of 3.0 x 15 mm resolute Kim drug-eluting stent. We postdilated the stent with 3.5 x 12 mm NC balloon at high pressure. At this time final angiogram was performed that showed excellent stent expansion and no residual stenosis. Guidewire and guide catheter were removed. Patient left the Mixer Runner in a stable condition.. Conclusions 1. Severe mid RCA stenosis s/p PCI with 1 stent. 2. Mid Right Coronary Artery was treated with a Balloon, Drug Eluting Stent, and Balloon. Recommendations * Dual antiplatelet therapy. * High intensity statin therapy. * Outpatient cardiology follow up in 2 weeks. Interventional RX Recommendation: PCI w/o planned CABG Diagnostic RX Recommendation: PCI w/o planned CABG Anticoagulation: Heparin Pressures Phase:Rest AO : 98 / 76 ( 88 ) @ 11:06:00 AM Clinical Evaluation EBL: 5mL-10mL Procedural Details Procedure Consent Obtained. Admit Source: Out Patient. Pre-Procedure Time Out. Identified patient by full name and date of as verbalized by the patient/guarantor. Does the consent match the physician's order: Yes. Accurate & Complete Informed Consent: Yes. Inpatient/Outpatient History & Physical on Chart: Yes. If H&P is completed, is and addenduem needed: No; If yes, is the addendum complete: N/A. Visualize and Verify Site with Patient/Guarantor: N/A. Relevant Radiology Images available: Yes. Pre-op teaching completed and patient verbalized understanding. The risks, benefits, and alternatives of sedation and/or procedure were discussed by physician. The patient agrees to continue. Procedure started. [place] Clinical Fraility Score: 3: Managing Well. Mixer Runner Indications: Stable Known CAD. Chest Pain Symptom Assessment: Typical Angina Symptoms. Correct patient, site and procedure confirmed by cath team. Current diagnosis: Chest Pain. Physician arrived. PERRLA. Strong, equal hand merchandiser retail representative bilaterally. Lungs clear x 5 lobes. IV Site on Arrival: 20 gauge in the left anticubital. IV Fluids: 0.9% NaCl at KVO. 800 mL infused prior to laborer road. Pre Procedural Pulses: bilateral dorsalis pedis was Doppled. Pre Procedural Pulses: bilateral posterior tibial was Doppled. Pre Procedural Pulses: bilateral radial was 3+. Oxygen started at 2liters/min via nasal canula. right groin was prepped with chloroprep then draped in the usual sterile fashion. right radial was prepped with chloroprep then draped in the usual sterile fashion. Baseline sample Acquired. HR: 61 BPM. Lidocaine 1% infiltrated to the right radial. Arterial access obtained. Lidocaine 1% infiltrated to the right radial. 6 nepalese JR 4 guide catheter was inserted over the wire. Runthrough guidewire was advanced through the guide catheter to lesion in the mid RCA. Inflation number : 1 A AB TREK 3.00X12 RX BALLOON was prepped and advanced across the Mid RCA , then inflated to 10 BRIEN for 0:12 seconds. Inflation number: 2 The AB TREK 3.00X12 RX BALLOON was reinflated across the Mid RCA, to 10 BRIEN for 0:08 seconds. Balloon out. Inflation Number : 3 A COREY Guzman KIM 3.0X15 KAMINI -Lot Number# _[id number] EXP: 02/09/2028 was prepped and advanced across the Mid RCA. The stent was deployed at 12 BRIEN for 0:21 seconds. Stent balloon out over wire. Results checked. Inflation number : 4 A MDT KESHA EUPHORA RX [id number] BALLOON was prepped and advanced across the Mid RCA , then inflated to 18 BRIEN for 0:11 seconds. Balloon out. Results checked. Wire out. ACT drawn. Results out of range high seconds. Therapeutic limits - pre-heparin administration 90-150 seconds and monitoring heparin during a vascular procedure >250 seconds. Guide catheter out. A TR Band was successful obtaining hemostatsis at the Right Radial artery insertion site. Post Procedure: Pulses reassessed and unchanged. PERRLA. Strong, equal hand merchandiser retail representative bilaterally. No VTE prophylaxis required. Medication's Wasted: Lidocaine 1% = 15 mL. Medication's Wasted: Nitro = 49.8 mcg. Medication's Wasted: Other = Fentanyl 50mcg. ACT drawn. Results 298 seconds. Therapeutic limits - pre-heparin administration 90-150 seconds and monitoring heparin during a vascular procedure >250 seconds. Post-op diagnosis: Stent to RCA. Complications: None. Estimated blood loss: 5mL-10mL. Total IV fluids: 75 mL. Responsiveness - Normal response to verbal stimuli; alert and oriented, PERRLA. Airway - Unaffected, no intervention required; spontaneous ventilation. Circulation: W/N/L, pulses unchanged. Nausea/Vomiting: No. Procedure completed. Vital chart was stopped. Medication's Wasted: Heparin = 1000 units. Patient transferred by bed to 1st floor. Access Site Site: Right Radial artery Sheath Size: 6 Fr Hemostasis Method: TR Band Hemostasis Success: Successful Procedure Medications Start: 10:52 AM Stop: 10:52 AM Medication: Versed 1 mg and Fentanyl 25 mcg Amount: 1 Route: I.V. Start: 10:59 AM Stop: 10:59 AM Medication: Versed Amount: 1 mg Route: I.V. Start: 10:59 AM Stop: 10:59 AM Medication: Nitrogylcerin Amount: 200 mcg Route: I.A. Start: 11:01 AM Stop: 11:01 AM Medication: Heparin Amount: 46447 units Route: I.V. Start: 11:05 AM Stop: 11:05 AM Medication: Fentanyl Amount: 25 mcg Route: I.V. Start: 11:08 AM Stop: 11:08 AM Medication: Heparin Amount: 1000 units Route: I.V. Start: 11:34 AM Stop: 11:34 AM Medication: Plavix Amount: 300 mg Route: P.O. I, the attending physician, have reviewed and verified all procedure medications. Yes, all medications given per verbal order History/Risk Factors Hypertension: Yes Dyslipidemia: No Peripheral Arterial Disease (PAD): No Myocardial Infarction ([place]): Yes Obesity: Yes Renal Disease: No Tobacco Use: Former Prior Interventions PCI: Yes CABG: No Valve Surgery: No Date of PCI: 06/07/2025 Report Signatures Finalized by Bob Brewster MD on 07/19/2025 09:40 AM
--- NOTE | 2025-07-12 10:46 | W.PM.OPSUD ---
Surgery/Procedure H&P Update DATE OF PROCEDURE: July 12, 2025 DATE H&P PERFORMED: 06/14/25 H&P UPDATE INFORMATION: I have reviewed H&P completed within last 30 days, I have examined patient prior to procedure and No changes to prior documentation PREOP DIAGNOSIS: Staged PCI of RCA/ Severe mid RCA stenosis PRIMARY INDICATION FOR PROCEDURE: Staged PCI of RCA/ Severe mid RCA stenosis PLANNED PROCEDURE: Operation Date: 07/12/25 10:00 Proposed Procedures p Percutaneous Coronary Intervention - Staged PCI - Bob Brewster M.D PATIENT REASSESSED PRIOR TO SEDATION, WITH NO CHANGE NOTED: Yes PHYSICAL EXAM: alert, oriented x 3 and regular rate & rhythm OTHER PERTINENT EXAM FINDINGS: Diminished air entry bilaterally AIRWAY EVAL/ANESTHESIA PLAN: normal airway, ASA III, Local Anesthesia, Risks, benefits & alternatives of sedation and/or procedure discussed and Patient agrees to continue as planned ADDITIONAL INFORMATION: Moderate sedation
--- NOTE | 2025-07-12 11:42 | PC.NURSE ---
received pt from [facility]. Pt is a and o x4. Denies any chest pains or discomfort. Pt has TR band intact on right wrist. No hematoma, swelling or bleeding. Pt is educated on activity restrictions to right arm and wrist, such as no weightbearing, pulling or pushing using right arm. Educated pt to call nurse SHAWNA for any unusual pain, bleeding or swelling and pressure. Pt verbalizes understanding. Call light and urinal provided. Pt brought all his personal belongings such as his CPAP machine. VS monitored.
--- NOTE | 2025-07-12 11:49 | P.PCN_ITS ---
Procedure Note: Date of procedure: 07/12/25 Pre-procedure diagnosis: Staged PCI of mid RCA Post-procedure diagnosis: other (S/p successful revascularization of mid RCA with 1 stent) Procedure: Severe mid RCA stenosis s/p PCI with 1 stent Dual antiplatlet therapy with aspirin and plavix Performing Provider: Bob Brewster Estimated blood loss (mL): 5 C omplications: None Condition: stable Disposition: floor Coding Level of Care Code Acute Code for Miles Sarabia
--- NOTE | 2025-07-12 18:00 | PC.NURSE ---
TR band off NO hematoma,swelling or bleeding. Educated pt on activity restrictions to right arm. Informed pt on continous IV fluid until AM per order. Pt verbalizes understanding.
[2025-07-13] VITALS (11 sets, daily range): BP systolic 112–143; BP diastolic 57–91; PULSE 52–85; RESP 12–18; TEMP 36.7–36.8; O2SAT 93–98
--- NOTE | 2025-07-13 09:47 | P.DS_ITS ---
<Statement entered by Bob Brewster M.D - 07/17/25 19:48> Patient was cared for in conjunction with an advanced practice practitioner. I reviewed the chart and all pertinent data including imaging, telemetry, and laboratory results. I discussed the patient in detail with the advanced practice practitioner. Please see their note for agreed upon plan of care and results for the patient. Discharge Providers Date of Admission: 07/12/2025 Date of Discharge: July 13, 2025 Attending Provider at Discharge: Bob Brewster M.D Primary Care Provider: Deon Abebe MD Reason for Visit Reason for Visit: I25.10 Brief History: 59-year-old man who was recently admitte d to hospital with ST elevation ND and was found to occluded diagonal artery underwent bifurcation PCI of LAD and d iagonal and PCI of circumflex artery. Has residual RCA stenosis. He has been feeling worsening shortness of breath recently. His hydrochlorothiazide was held at time of discharge secondary to TD. Blood pressure is controlled. No chest pain. Will need staged PCI of her RCA. Once her volume overload improves, we will plan in 3-4 weeks Hospital Course Hospital Course He was brought for coronary angiogram yesterday, finding severe mid RCA stenosis treated with KAMIIN x 1. He has done well overnight and is ready for discharge home today. Will discharge on aspirin, Plavix, atorvastatin, metoprolol succinate. Follow-up in the clinic in 2 weeks. Physical Exam Const: COMMON NORMALS: no acute distress and patient oriented x3 GENERAL APPEARANCE: cooperative ORIENTATION/CONSCIOUSNESS: Yes awake, Yes oriented to person, Yes oriented to place and Yes oriented to time Chest: COMMONS NORMALS: normal inspection of the chest and normal palpation of entire chest wall CHEST: Yes Symmetrical chest wall rise Resp: COMMON NORMALS: normal respiratory effort, No retractions, No use of accessory muscles and clear to auscultation bilaterally AUSCULTATION: clear to auscultation bilaterally Cardio: COMMON NORMALS: regular rate, regular rhythm, S1 normal heart sound present, S2 normal heart sound present, No gallops present (Cardio), No clicks present (Cardio), No murmurs present (Cardio) and No rub (Cardio) RATE: regular rate RHYTHM: regular rhythm HEART SOUNDS: S1 normal heart sound present and S2 normal heart sound present PERIPHERAL PULSES: radial pulses present positive right 2+ and femoral pulses present positive right 2+ Neuro: COMMON NORMALS: patient oriented x3 and moves all extremities SENSORIUM/ORIENTATION: Yes oriented to person, Yes oriented to place and Yes oriented to time Skin: WOUNDS: Yes surgical site (no hematoma palpable) Details: no odor Discharge Data Studies Completed and Pending Pending at discharge Category Date Time Status DIRECTOR INTERNAL COMMUNICATIONS request for service Routine Exams 07/12/25 10:00 Taken Complete Blood Count w/Auto AM LABS Lab 07/14/25 04:00 Ordered Comprehensive Metabolic Panel AM LABS Lab 07/14/25 04:00 Ordered Laboratory Results WBC 7.21 10^3/uL (3.29-11.43) 07/12/25 06:30 RBC 4.77 10^6/uL (3.85-5.65) 07/12/25 06:30 Hgb 13.90 g/dL (11.27-16.99) 07/12/25 06:30 Hct 41.2 % (37-53) 07/12/25 06:30 MCV 86.4 fl (82-101) 07/12/25 06:30 MCH 29.1 pg (27-33) 07/12/25 06:30 MCHC 33.7 g/dL (30-55) 07/12/25 06:30 RDW 14.9 % (12.1-15.1) 07/12/25 06:30 Plt Count 237 10^3/cmm (157-399) 07/12/25 06:30 MPV 9.0 fL (7.4-10.4) 07/12/25 06:30 Neut % (Auto) 65.3 % 07/12/25 06:30 Lymph % (Auto) 23.7 % 07/12/25 06:30 [place] % (Auto) 8.0 % 07/12/25 06:30 Eos % (Auto) 1.8 % 07/12/25 06:30 Baso % (Auto) 0.8 % 07/12/25 06:30 Neut # (Auto) 4.70 10^3/uL (1.8-7.7) 07/12/25 06:30 Lymph # (Auto) 1.7 10^3/uL (0.8-4.8) 07/12/25 06:30 [place] # (Auto) 0.6 10^3/uL (0.2-0.9) 07/12/25 06:30 Eos # (Auto) 0.1 10^3/uL (0.0-0.8) 07/12/25 06:30 Baso # (Auto) 0.1 10^3/uL (0.0-0.1) 07/12/25 06:30 Nucleated RBC % (auto) 0 % 07/12/25 06:30 Nucleated RBCs # 0.0 /100WBC 07/12/25 06:30 Sodium 136 mmol/L (136-145) 07/12/25 06:30 Potassium 3.5 mmol/L (3.5-5.1) 07/12/25 06:30 Chloride 100 mmol/L (98-107) 07/12/25 06:30 Carbon Dioxide 23 mmol/L (22-29) 07/12/25 06:30 Anion Gap 16.5 (5-19) 07/12/25 06:30 BUN 17 mg/dL (8-23) 07/12/25 06:30 Creatinine 1.2 mg/dL (0.7-1.2) 07/12/25 06:30 GFR Calculation 61.6 mL/min (90-130) L 07/12/25 06:30 Glucose 100 mg/dL (65-115) 07/12/25 06:30 Calculated Osmolality 284 mOsm/kg (285-295) L 07/12/25 06:30 Calcium 9.6 mg/dL (8.5-10.5) 07/12/25 06:30 Vitals Last Vital Signs Temp 98.3 F 07/13/25 03:40 Pulse 58 L 07/13/25 04:00 Resp 18 07/13/25 04:00 BP 143/72 07/13/25 04:00 Pulse Ox 98 07/13/25 04:00 O2 Del Method CPAP 07/13/25 01:03 Discharge Plan Discharge Patient Disposition: Home Prescriptions: Continued cholecalciferol (vitamin D3) 125 mcg (5,000 unit) capsule 125 mcg PO DAILY Qty: 30 6RF cetirizine [Zyrtec] 10 mg tablet 10 mg PO QPM PRN (Reason: Allergy Symptoms) prednisone 5 mg tablet 5 mg PO DAILY Qty: 30 1RF potassium chloride [Klor-Con 10] 10 mEq tablet extended release 10 meq PO DIRECTED Qty: 270 3RF Rx Instructions: Take 20 mEq (2tabs) in the AM and 10 mEq in the PM furosemide [Lasix] 20 mg tablet 20 mg PO DIRECTED Qty: 270 3RF Rx Instructions: Take 40mg (2tabs) in the AM and 20mg (1tab) at 2:00pm (DME) blood-glucose meter [OneTouch Ultra2 Meter] [facility] [place] See Rx Instructions .Route Qty: 1 0RF Rx Instructions: As directed (DME) OneTouch Ultra Test Strip See Rx Instructions .Route Qty: 100 2RF Rx Instructions: As directed - test glucose daily (DME) [employer] See Rx Instructions .Route .MEDSUPPLY Qty: 1 0RF Rx Instructions: As directed By Home (DME) CPAP mask and supplies See Rx Instructions .Route .MEDSUPPLY Qty: 1 0RF Rx Instructions: As directed hydrochlorothiazide 25 mg tablet 25 mg PO DAILY Qty: 90 3RF azelastine 0.05 % drops 1 drp ophthalmic (eye) BID albuterol sulfate 90 mcg/actuation HFA aerosol inhaler 2 puff INHALATION Q6H terazosin 10 mg capsule 10 mg PO QPM budesonide-formoterol [Symbicort] 160-4.5 mcg/actuation HFA aerosol inhaler 2 puff INHALATION BID atorvastatin 40 mg Tablet 80 mg PO BEDTIME Qty: 90 3RF clopidogrel 75 mg Tablet 75 mg PO DAILY Qty: 90 3RF aspirin 81 mg Tablet,Delayed Release (Dr/Ec) 81 mg PO DAILY Qty: 90 3RF metoprolol succinate 25 mg Tablet Extended Release 24 Hr 25 mg PO DAILY Qty: 180 3RF Discontinued pantoprazole 40 mg Tablet,Delayed Release (Dr/Ec) 40 mg PO DAILY Qty: 30 0RF No Action pantoprazole 40 mg tablet,delayed release (DR/EC) See Rx Instructions .ROUTE .COMPLEX Qty: 90 2RF Dose Instruction: TAKE ONE TABLET BY MOUTH DAILY Rx Instructions: TAKE ONE TABLET BY MOUTH DAILY Discharge Order = DC NOW: Discharge Order (Routine); Ordered 07/13/25 Ordered By: Nicolasa Morales Referrals: Nicolasa Morales FNP [Nurse Practitioner, Cardiology] - 08/05/25 1:30 pm Deon Abebe MD [Primary Care Provider, Family Practice] - 07/19/25 9:50 am Diet: Cardiac and Diabetic Activity: Increase activity as tolerated Patient Instructions: Coronary Intravascular Stent Placement (DC), Chest Pain Stoplight, Post Angiogram Home Care Instructions Activity Restrictions/Additional Instructions: No lifting over 5 pounds for 2 days. Print Language: Cymro Discharge Date/Time: 07/13/25 10:02 Discharge Attestations Time Spent in Discharge Care*: less than 30 min Status at Discharge: Cognitive status at discharge: cognitively intact , Behavioral status at discharge: cooperative , Quality Metrics Clinical Quality Measures [ No reported AMI, CVA or VTE this stay] Coding Level of Care Code Acute Code for Chg Fwd
== END 2025-07-13 10:02 | disposition home or self-care (01) ==
LOC: CCL 05:45 → CSU 11:26
PROVIDERS: PCP Family Medicine; Visit Provider Internal Medicine
DX: I25.10 Atherosclerotic heart disease of native coronary artery without angina pectoris (principal); I10 Essential (primary) hypertension; I25.2 Old myocardial infarction; E66.9 Obesity, unspecified; Z68.43 Body mass index [BMI] 50.0-59.9, adult; Z87.891 Personal history of nicotine dependence; Z79.82 Long term (current) use of aspirin; Z79.02 Long term (current) use of antithrombotics/antiplatelets; K21.9 Gastro-esophageal reflux disease without esophagitis; Z85.528 Personal history of other malignant neoplasm of kidney
CPT/HCPCS: 36415; 80048; 85025; 85347; 93454; 96360; 96361; 99152; 99153; C1725; C1769; C1874; C1887; C1894; C9600; J1644; J2250; J3010; J3490; J7030; J9999; Q0163; Q9967

== ENCOUNTER → 2025-08-05 14:38 | Outpatient (BNVA) | payer OTHER, MEDICAID, SELFPAY ==
[2025-05-07 14:29] VITALS: BP 143/85; BMI 54.8
== END ==
PROVIDERS: PCP Family Medicine; Visit Provider Nurse Practitioner Family
DX: I25.10 Atherosclerotic heart disease of native coronary artery without angina pectoris (principal)
CPT/HCPCS: 36415; 80048